=== PATIENT | male | born 1925 | race Caucasian/White ===

== ENCOUNTER 2016-09-06 20:47 | Inpatient (IN) | payer MEDICAID ==
[~2016-09-06] VITALS: Ht 162.6 cm; Wt 63.2 kg
[~2016-09-06 20:47] MED LIST: ADV25050 INH; ALBU8.5H3 INH; ALBU8.5H5 INH; CEPH-443 PO; DOCU-144 PO; FAMO-95 PO; IPRA12.93 INHALATION; LANT3I SC; METF500T PO; SIN25100 PO
[2016-09-06] MEDS ORDERED: AZITHROMYCIN 500MG/NS (PMX) 250 ML IV STA (21:42)
[2016-09-06] MEDS ORDERED: CEFTRIAXONE 1 GM/50 ML (PMX) 50 ML IVPB STA (21:42)
[2016-09-06] MEDS ORDERED: SODIUM CHLORIDE 0.9% 1L BAG IV* STA (21:42)
[2016-09-06] MEDS ORDERED: ACETAMINOPHEN 500 MG TAB PO STA (21:59)
[2016-09-06] MEDS ORDERED: ALBUTEROL 0.083% (NEB) 2.5 MG/3 ML AMP NEB STA (22:06)
[2016-09-06] MEDS ORDERED: DEXAMETHASONE 10 MG/ML 1 ML INJ IV STA (22:06)
[2016-09-06] MEDS ORDERED: IPRATROPIUM (NEB) 0.5 MG/2.5 ML AMP NEB STA (22:06)
[2016-09-06 22:26] LABS: ADD SCAN DIFF NO
[2016-09-06 22:28] LABS: HEMATOCRIT 36.4 % (42.0-52.0); HEMOGLOBIN 12.4 g/dl (14.0-18.0); MEAN CORPUSCULAR HEMOGLOBIN 30.5 pg (29.0-33.0); MEAN CORPUSCULAR HGB CONC 34.1 g/dl (32.0-37.0); MEAN CORPUSCULAR VOLUME 89.7 fl (82.0-101.0); MEAN PLATELET VOLUME 9.1 fl (7.4-10.4); PLATELET COUNT 155 10^3/UL (140-415); RED BLOOD COUNT 4.06 10^6/ul (4.70-6.10); RED CELL DISTRIBUTION WIDTH 13.2 % (11.5-14.5); WHITE BLOOD COUNT 6.4 10^3/ul (4.8-10.8)
--- NOTE | 2016-09-06 22:30 | RADRPT ---
PROCEDURE: XR Chest. CLINICAL INDICATION: Shortness of breath. Sepsis. TECHNIQUE: Single frontal view. COMPARISON: 08/13/2015. FINDINGS: There is bilateral apical scarring with right worse than left, unchanged. Atelectasis or pneumonia at the lung bases is also unchanged. The heart size is normal. There is calcification in the aorta consistent with atherosclerosis. There is no pleural effusion. There is no pneumothorax. IMPRESSION: 1. Bilateral upper lobe scarring with right worse than left, unchanged. 2. Bibasilar atelectasis, unchanged. 3. Atherosclerosis. RPTAT: QQ .Justino Correa MD, MD Date Time Electronically viewed and signed by .Justino Correa MD, on 09/06/2016 22:30 .R/
[2016-09-06 22:44] LABS: ALBUMIN 3.7 g/dl (3.3-4.9); CHLORIDE 97 mmol/L (97-110); INR 1.18; PROTIME 15.1 Sec (12.2-14.2); PT RATIO 1.2
[2016-09-06 22:45] LABS: PARTIAL THROMBOPLASTIN TIME 35.3 Sec (25.0-35.0); POTASSIUM 3.8 mmol/L (3.5-5.1); SODIUM 137 mmol/L (135-144)
[2016-09-06 22:47] LABS: ALBUMIN/GLOBULIN RATIO 0.88; ANION GAP 16 (8-16); BILIRUBIN,INDIRECT 0.3 mg/dl (0-1.1); BILIRUBIN,TOTAL 0.3 mg/dl (0.2-1.3); CARBON DIOXIDE 28 mmol/L (21-31); CREATININE 0.62 mg/dl (0.61-1.24); TOTAL PROTEIN 7.9 g/dl (6.1-8.1)
[2016-09-06 22:48] LABS: ALANINE AMINOTRANSFERASE 23 IU/L (13-69); ALKALINE PHOSPHATASE 81 IU/L (42-121); ASPARTATE AMINO TRANSFERASE 17 IU/L (15-46); BLOOD UREA NITROGEN 17 mg/dl (7-20); CALCIUM 9.2 mg/dl (8.4-10.2); GLUCOSE 170 mg/dl (70-220)
[2016-09-06 23:05] LABS: TROPONIN-I < 0.012 ng/ml (0.00-0.12)
[2016-09-06] MEDS ORDERED: ACETAMINOPHEN 325 MG TAB PO PRN (23:30)
[2016-09-06] MEDS ORDERED: ONDANSETRON 4 MG INJ IV PRN (23:30)
[2016-09-07] VITALS (13 sets, daily range): BP systolic 109–149; BP diastolic 56–72; PULSE 67–95; RESP 16–20; TEMP 98.9; Ht 162.6 cm; Wt 63.2 kg
[2016-09-07] MEDS ORDERED: SIN25100 PO (00:07)
[2016-09-07 00:40] LABS: EOSINOPHILS # 0.1 10^3/ul (0.0-0.5); MONOCYTE # 0.1 10^3/ul (0.3-0.9); NEUTROPHIL # 3.8 10^3/ul (1.6-7.5)
--- NOTE | 2016-09-07 02:51 | ERA ---
ER Documentation Chief Complaint Date/Time DATE: 09/07/16 TIME: 02:19 Chief Complaint fever/cough/congestion x 2 days HPI 89-year-old male with a history of chronic lung disease presenting from home with a cough for 4 days and associated fever 2 days. He has had associated dark yellow sputum. He denies any nausea, vomiting, diarrhea, chest pain, abdominal pain. He states that he does not use any medications for his chronic lung disease. ROS All systems reviewed and are negative except as per history of present illness. Medications Home Meds Active Scripts Metformin Hcl (Glucophage) 500 Mg Tab, 1000 MG PO BID WITH MEALS for 30 Days, TAB Prov:MARGAUXFELIX M. 05/03/15 Reported Medications Carbidopa-Levodopa* (Sinemet*) 25-100 Mg Tab, 2 TAB PO TID, TAB 09/07/16 Discontinued Reported Medications Carbidopa-Levodopa* (Sinemet*) 25-100 Mg Tab, 1.5 TAB PO TID, TAB 09/18/14 Docusate Sodium* (Colace*) 100 Mg Capsule, 100 MG PO BID, CAP 08/23/14 Discontinued Scripts Albuterol Sulfate* (Proair HFA*) 8.5 Gm Hfa.aer.ad, 2 PUFF INH Q4 for WHEEZING, #1 INHALER Prov:NAKIA NANCE MD 08/13/15 Salmeterol Xinaf/Fluticasone* (Advair*) 1 Inh Inha, 1 INH INH BID, #1 INHALER Prov:FELIX DAMICO. 05/03/15 Ipratropium [place]* (Atrovent HFA*) 12.9 Gm Aer.w.adap, 2 PUFF INHALATION Q4H for SHORTNESS OF BREATH, #1 INHALER Prov:FELIX DAMICO. 05/03/15 Insulin Glargine* (Lantus*) 100 Unit/Ml Soln, 16 UNIT SC DAILY for 30 Days Prov:FELIX DAMICO. 05/03/15 Famotidine* (Pepcid* AC) 20 Mg Tab, 20 MG PO BID for 30 Days, TAB Prov:MARGAUXTANIKALAMONTE Marc. 05/03/15 Albuterol Sulfate* (Albuterol Sulfate* HFA) 8.5 Gm Hfa.aer.ad, 1-2 PUFF INH Q4 Y for SHORTNESS OF BREATH, #1 EA Prov:FELIX DAMICO 05/03/15 Cephalexin* (Keflex*) 500 Mg Capsule, 500 MG PO TID for 7 Days, CAP Prov:NAKIA NANCE MD 08/13/15 Allergies Allergies: Coded Allergies: Cyanocobalamin (Verified Allergy, Unknown, 09/06/16) PMhx/Soc History of Surgery: Yes (tumor removal, cholecystectomy, ) Anesthesia Reaction: No Hx Neurological Disorder: Yes (parkinsons) Hx Respiratory Disorders: Yes (PNA, COPD, former smoker (quit 50 years ago)) Hx Cardiac Disorders: Yes (cardiac stent, CAD, ) Hx Psychiatric Problems: No Hx Miscellaneous Medical Probl: Yes Hx Alcohol Use: No Hx Substance Use: No Hx Tobacco Use: Yes (quit 50 years ago) Smoking Status: Former smoker FmHx Family History: No diabetes Physical Exam Vitals Vital Signs Date Time Temp Pulse Resp B/P Pulse Ox O2 Delivery O2 Flow Rate FiO2 09/06/16 23:12 100.0 106 26 107/54 97 Nasal Cannula 2.0 09/06/16 22:34 98 2.0 28 09/06/16 22:34 107 19 98 Nasal Cannula 2.0 28 09/06/16 21:49 Nasal Cannula 2 09/06/16 20:57 101.8 114 20 134/68 94 Physical Exam Const: Well-appearing, no distress, on oxygen Head: Atraumatic Eyes: Normal Conjunctiva ENT: Normal External Ears, Nose and Mouth. Neck: Full range of motion. No JVD ~ No meningismus. Resp: Diminished breath sounds bilaterally, worse on the right, with rhonchi on right lower posterior lung field. Expiratory wheezing present on right Cardio: Tachycardic with regular rhythm, no murmurs. 2+ distal pulses bilaterally. Abd: Soft, non tender, non distended. Normal bowel sounds Skin: No petechiae or rashes Back: No midline or flank tenderness Ext: No cyanosis, or edema. No calf tenderness Neur: Awake and alert Psych: Normal Mood and Affect Result Diagram: 09/06/16220709/06/162207 Results 24 hrs Laboratory Tests Test 09/06/16 22:08 White Blood Count 6.410^3/ul Red Blood Count 4.0610^6/ul Hemoglobin 12.4g/dl Hematocrit 36.4% Mean Corpuscular Volume 89.7fl Mean Corpuscular Hemoglobin 30.5pg Mean Corpuscular Hemoglobin Concent 34.1g/dl Red Cell Distribution Width 13.2% Platelet Count 86068^3/UL Mean Platelet Volume 9.1fl Neutrophils % 60.0% Band Neutrophils % 5.0% Lymphocytes % 32.0% Monocytes % 2.0% Eosinophils % 1.0% Neutrophils # 3.810^3/ul Lymphocytes # 2.010^3/ul Monocytes # 0.110^3/ul Eosinophils # 0.110^3/ul Differential Comment MANUAL DIFF Prothrombin Time 15.1Sec Prothrombin Time Ratio 1.2 INR International Normalized Ratio 1.18 Activated Partial Thromboplast Time 35.3Sec Sodium Level 137mmol/L Potassium Level 3.8mmol/L Chloride Level 97mmol/L Carbon Dioxide Level 28mmol/L Anion Gap 16 Blood Urea Nitrogen 17mg/dl Creatinine 0.62mg/dl Glucose Level 170mg/dl Lactic Acid Level 1.2mmol/L Calcium Level 9.2mg/dl Total Bilirubin 0.3mg/dl Direct Bilirubin 0.00mg/dl Indirect Bilirubin 0.3mg/dl Aspartate Amino Transf (AST/SGOT) 17IU/L Alanine Aminotransferase (ALT/SGPT) 23IU/L Alkaline Phosphatase 81IU/L Troponin I < 0.012ng/ml Total Protein 7.9g/dl Albumin 3.7g/dl Globulin 4.20g/dl Albumin/Globulin Ratio 0.88 Current Medications Medications (Trade) Dose Ordered Sig/Almaz Route PRN Reason Start Time Stop Time Status Last Admin Dose Admin Sodium Chloride 2040 ml 2,040 ml BOLUS OVER 2 HOURS STAT IV* 09/06/16 21:42 09/06/16 21:44 DC 09/06/16 22:05 Ceftriaxone Sodium 50 ml @ 100 mls/hr ONCE STAT IVPB 09/06/16 21:42 09/06/16 22:11 DC 09/06/16 22:04 Azithromycin (Zithromax 500mg/ NS (Pmx)) 250 ml @ 250 mls/hr ONCE STAT IV 09/06/16 21:42 09/06/16 22:41 DC 09/06/16 22:24 Acetaminophen (Tylenol Tab) 1,000 mg ONCE STAT PO 09/06/16 21:59 09/06/16 22:00 DC 09/06/16 22:03 Albuterol (Proventil 0.083% (Neb)) 5 mg ONCE STAT NEB 09/06/16 22:06 09/06/16 22:08 DC 09/06/16 22:32 Ipratropium [place] (Atrovent 0.02% (Neb)) 0.5 mg ONCE STAT NEB 09/06/16 22:06 09/06/16 22:08 DC 09/06/16 22:32 Dexamethasone (Decadron) 10 mg ONCE STAT IV 09/06/16 22:06 09/06/16 22:08 DC 09/06/16 22:13 Procedures/MDM EMERGENT LABS AND DIAGNOSTIC STUDIES: Lab Results above were reviewed and interpreted by me. CBC and CMP within normal limits Lactate within normal limits 12-lead EKG was interpreted by Ana Hector MD: Sinus tachycardia at 115 bpm with PACs Normal axis Normal intervals No acute ST or T wave changes suggestive of acute ischemia or STEMI. Radiology Results as interpreted by Radiology below were reviewed by Keri Hector MD: Chest x-ray: IMPRESSION: 1. Bilateral upper lobe scarring with right worse than left, unchanged. 2. Bibasilar atelectasis, unchanged. 3. Atherosclerosis. .Justino Correa MD, MD Date Time Electronically viewed and signed by .Justino Correa MD, on 09/06/2016 22:30 Initial Nursing notes reviewed. Previous Medical Records requested via the Electronic Health Record. EMERGENCY DEPARTMENT COURSE / MEDICAL DECISION MAKING: Symptoms are most consistent with COPD exacerbation likely viral vs bacterial. Considered URI, allergic reaction, ACS, PE, pericardial effusion, but less likely based on history and physical. Sepsis workup started. Broad-spectrum antibiotics given. Steroids given. Med nebs ordered. Patient's infectious symptoms have not stabilized and the patient is at risk of rapid decompensation. The patient will be admitted for careful hydration, antibiotic therapy, and infectious source control. Severe Sepsis Assessment: Infectious Source: Pneumonia Severe Sepsis Managment: Blood Cultures X 2 before broad spectrum antibiotics initiated within 3 hours of recognition. 30 ml/kg NS bolus Completed Initial Lactate: Normal Repeat Lactate 1.8 Critical Care: Time: 40 minutes Treatments/Evaluations: Emergent fluid management, while maintaining close respiratory support. Immediate broad spectrum antibiotic therapy. Simultaneous assessment for possible sources in order to direct therapy. Consideration for invasive and chemical support to prevent respiratory or cardiac collapse. Septic Shock Assessment (1 hour post 30 ml/kg fluid bolus): Hypotension (SBP < 90 or 40 mmHg drop, MAP < 65): No Lactic acid > 4.0 no Accepting Care Team: Current data and ongoing care discussed. Time: Time of admission Primary Provider: Claribel Consulting: none Outstanding Data: cultures Departure Diagnosis: Primary Impression: COPD exacerbation Additional Impression: Sepsis Qualified Code: A41.9 - Sepsis, due to unspecified organism Condition: Serious ALEJANDRO HECTOR MD September 07, 2016 02:40
[2016-09-07] MEDS ORDERED: ONDANSETRON 4 MG INJ IV PRN (05:00)
--- NOTE | 2016-09-07 06:16 | HP ---
DATE OF ADMISSION: 09/06/2016 TIME SEEN: 2300. CHIEF COMPLAINT: Cough and fever. HISTORY OF PRESENT ILLNESS: The patient is an 89-year-old male with a history of Parkinson's diseas e, diabetes, COPD, and CAD with stent, who was brought to the ER with the above stated chief complai nt. The patient is wheelchair-bound and has delayed response to questions. Main complaint however is a cough which has been removed at times productive of whitish to yellowish sputum. Also complain ed of a fever. Symptoms have been going on for 2 days. When the patient presented to the ER he was febrile with a temperature of 101.8 and tachycardia with a heart rate of 114. Laboratory values shows a normal WBC. Hemoglobin was 12.4. Otherwise, CBC a nd CMP are within normal limits. Lactic acid is within normal limits. Chest x-ray in the ER shows some bilateral upper lobe scarring with right worse than left, and bibas ilar atelectasis, unchanged compared to chest x-ray . REVIEW OF SYSTEMS: Negative except as mentioned in the HPI. PAST MEDICAL HISTORY: As per HPI. PAST SURGICAL HISTORY: Cholecystectomy. SOCIAL HISTORY: He is an ex-smoker. He quit 50 years ago. ALLERGIES: CYANOCOBALAMIN. HOME MEDICATIONS: Sinemet and Metformin. PHYSICAL EXAMINATION: VITAL SIGNS: Blood pressure 107/54, heart rate 106, respiratory rate 26, temperature 100, oxygen sa turation 97% on 2 liters. GENERAL: In no acute distress. Appeared slightly tired and sleepy. HEENT: No obvious head deformity. Pupils are reactive to light. CARDIOVASCULAR: Tachycardic, with a regular rhythm. LUNGS: Diminished breath sounds at the bases bilaterally, with wheezing. ABDOMEN: Soft, nondistended, positive bowel sounds, nontender. EXTREMITIES: No edema. LABORATORY: Pertinent positives as mentioned in the HPI. IMPRESSION: 1. Sepsis, secondary to URI or possibly from developing pneumonia. 2. History of Parkinson's disease. 3. History of type 2 diabetes. PLAN: He will be placed on oxygen. Will send blood culture, urinalysis reviewed and culture. Will provide pain medication as needed. The patient will have a physical therapy evaluation prior to discharge. Further workup and management per clinical course. Dictated By: TA VELA/JOSE RAFAEL Conf#: [id number] [facility]#: [id number]
[2016-09-07] MEDS ORDERED: LEVALBUTEROL (NEB) 0.63 MG/3 ML AMP HHN PRN (06:30)
[2016-09-07] MEDS: LEVOFLOXACIN 500MG/D5W (PMX) 100 ML IVPB SCH (06:30)
[2016-09-07] MEDS: SOD CHLORIDE 0.9% 1,000 ML IV SCH ×2 (06:30→18:12)
[2016-09-07] MEDS ORDERED: DEXTROSE 50% 50 ML SYRINGE IV PRN ×2 (06:45)
[2016-09-07] MEDS ORDERED: GLUCOSE GEL 15 GRAM TUBE BUCCAL PRN (06:45)
[2016-09-07] MEDS ORDERED: GLUCAGON 1 MG INJ IM PRN (06:45)
[2016-09-07] MEDS ORDERED: GLUCOSE GEL 15 GRAM TUBE PO PRN ×2 (06:45)
[2016-09-07] MEDS: INSULIN ASPART [NOVOLOG] 3 ML PEN SC SCH ×4 (08:21→21:00)
[2016-09-07] MEDS: INSULIN GLARGINE [LANtus] 3 ML PEN SC SCH (08:21)
[2016-09-07] MEDS: HEPARIN 5,000 UNIT/0.5 ML VIAL SC SCH ×2 (08:25→22:14)
[2016-09-07] MEDS: ACETAMINOPHEN 325 MG TAB PO PRN (08:58)
[2016-09-07] MEDS: IPRATROPIUM (NEB) 0.5 MG/2.5 ML AMP HHN SCH ×3 (09:07→20:44)
[2016-09-07] MEDS: LEVALBUTEROL (NEB) 0.63 MG/3 ML AMP HHN SCH ×3 (09:07→20:44)
[2016-09-07 16:08] LABS: ADD UMIC YES; URINE BILIRUBIN (Dip) NEGATIVE (NEGATIVE); URINE BLOOD (Dip) TRACE (NEGATIVE); URINE COLOR LT. YELLOW (YELLOW); URINE KETONES (Dip) NEGATIVE (NEGATIVE); URINE LEUKOCYTE ESTERASE (Dip) NEGATIVE (NEGATIVE); URINE NITRITE (Dip) NEGATIVE (NEGATIVE); URINE TOTAL PROTEIN (Dip) NEGATIVE (NEGATIVE); URINE UROBILINOGEN (Dip) 0.2 E.U./dL (0.1-1.0)
[2016-09-07 16:16] LABS: BACTERIA,URINE FEW; MUCUS,URINE FEW; SQUAMOUS EPITHELIAL CELL,UR MODERATE
[2016-09-08] VITALS (11 sets, daily range): BP systolic 126–164; BP diastolic 60–76; PULSE 69–80; RESP 15–71
[2016-09-08] MEDS: ACCU-CHEK XX SCH (02:00)
[2016-09-08] MEDS ORDERED: ACCU-CHEK XX SCH (02:00)
[2016-09-08] MEDS: LEVALBUTEROL (NEB) 0.63 MG/3 ML AMP HHN SCH ×4 (02:07→19:49)
[2016-09-08] MEDS: LEVOFLOXACIN 500MG/D5W (PMX) 100 ML IVPB SCH (03:03)
[2016-09-08] MEDS: SOD CHLORIDE 0.9% 1,000 ML IV SCH ×2 (07:44→23:32)
[2016-09-08] MEDS: INSULIN ASPART [NOVOLOG] 3 ML PEN SC SCH ×4 (08:00→21:00)
[2016-09-08] MEDS: INSULIN GLARGINE [LANtus] 3 ML PEN SC SCH (08:22)
[2016-09-08] MEDS: HEPARIN 5,000 UNIT/0.5 ML VIAL SC SCH ×2 (08:22→20:51)
--- NOTE | 2016-09-08 10:36 | PN ---
Date/Time of Note Date/Time of Note LATE ENTRY DATE: 09/08/16 Assessment/Plan VTE Prophylaxis VTE Prophylaxis Intervention: heparin Lines/Catheters IV [facility]ter [facility] (from [facility]): Peripheral IV Urinary Cath still in place: No Assessment/Plan Chief Complaint/Hosp Course Assessment and plan 1. Sepsis secondary to possible bronchitis versus developing pneumonia. Continue antibiotics. Continue bronchodilators. Titrate down O2 as tolerated. 2. History of Parkinson's disease. Continue antiparkinsonian medication 3. TYPE 2 diabetes. Continue insulin regimen. Will adjust as needed 4. Deconditioning. Physical therapy to follow. Disposition and plan: Follow-up chest radiograph. Continue antibiotics. Bronchodilators [id number]. Await for clinical improvement of respiratory status Problems: Subjective 24 Hr Interval Summary Free Text/Dictation Still reports having some cough and some shortness of breath Exam/Review of Systems Vital Signs Vitals Vital Signs Date Time Temp Pulse Resp B/P Pulse Ox O2 Delivery O2 Flow Rate FiO2 09/08/16 08:28 69 09/08/16 08:19 97.6 22 146/65 97 09/08/16 08:08 2.0 09/08/16 08:08 Nasal Cannula 09/06/16 22:34 28 Intake and Output 09/07/16 09/07/16 09/08/16 15:00 23:00 07:00 Intake Total 100 ml 1330 ml Output Total 200 ml Balance 100 ml 1130 ml Exam Constitutional: alert Psych: nl mood/affect Head: normocephalic Neck: No jvd Respiratory: diminished breath sounds, wheezing Gastrointestinal: non-tender, soft Musculoskeletal: swelling (Some noted in bilateral knees. Patient with history of osteoarthritis) Extremities: No edema Neurological: nl mental status, nl speech Results Result Diagram: 09/06/16220709/06/162207 Results 24 hrs Laboratory Tests Test 09/07/16 12:01 09/07/16 15:00 09/07/16 17:28 09/07/16 22:16 Bedside Glucose 225 H 228 H 175 Urine Color LT. YELLOW Urine Clarity SLIGHTLY CLOUDY Urine pH 6.0 Urine Specific [place] 1.010 Urine Ketones NEGATIVE Urine Nitrite NEGATIVE Urine Bilirubin NEGATIVE Urine Urobilinogen 0.2 E.U./dL Urine Leukocyte Esterase NEGATIVE Urine Microscopic RBC 2-5 Urine Microscopic WBC 0-2 Urine Squamous Epithelial Cells MODERATE Urine Bacteria FEW Urine Mucus FEW Urine Hemoglobin TRACE Urine Glucose 0.25% H Urine Total Protein NEGATIVE Test 09/08/16 03:01 09/08/16 07:56 Bedside Glucose 158 135 Medications Medications Current Medications Levofloxacin/ Dextrose (Levaquin 500mg/ D5W 100 ml (Pmx)) 100 ml @ 100 mls/hr Q24H IVPB Last administered on 09/08/16 03:03; Admin Dose 100 MLS/HR; Start at 04:00 Acetaminophen (Tylenol Tab) 650 mg Q6H PRN PO PAIN AND OR ELEVATED TEMP Last administered on 09/07/16 08:58; Admin Dose 650 MG; Start 09/07/16 at 04:00 Ondansetron HCl (Zofran Inj) 4 mg Q6H PRN IV NAUSEA AND/OR VOMITING; Start 03/16 at 05:00 Heparin Sodium (Porcine) 5000 unit 5,000 unit BID SC Last administered on 08:22; Admin Dose 5,000 UNIT; Start 09/07/16 at 09:00 Sodium Chloride (NS) 1,000 ml @ 75 mls/hr [id number] IV Last administered on 09/08 07:44; Admin Dose 75 MLS/HR; Start 09/07/16 at 05:00 Insulin Glargine (Lantus) 10 unit DAILY@08 SC Last administered on 09/08/16 08 :22; Admin Dose 10 UNIT; Start 09/07/16 at 08:00 Diagnostic Test (Pha) (Accu-Chek) 1 ea 02 XX Last administered on 09/08/16 02: 00; Admin Dose 1 EA; Start 09/08/16 at 02:00 Miscellaneous Information 1 ea NOTE XX ; Start 09/07/16 at 06:45 Glucose (Glutose) 15 gm Q15M PRN PO DECREASED GLUCOSE; Start 09/07/16 at 06:45 Glucose (Glutose) 22.5 gm Q15M PRN PO DECREASED GLUCOSE; Start 09/07/16 at 06: 45 Dextrose (D50w Syringe) 25 ml Q15M PRN IV DECREASED GLUCOSE; Start 09/07/16 at 06:45 Dextrose (D50w Syringe) 50 ml Q15M PRN IV DECREASED GLUCOSE; Start 09/07/16 at 06:45 Glucagon (Glucagen) 1 mg Q15M PRN IM DECREASED GLUCOSE; Start 09/07/16 at 06:45 Glucose (Glutose) 15 gm Q15M PRN BUCCAL DECREASED GLUCOSE; Start 09/07/16 at 06 :45 ASHLEY FONG September 08, 2016 10:36
--- NOTE | 2016-09-08 10:43 | PN ---
Date/Time of Note Date/Time of Note DATE: 09/08/16 TIME: 10:36 Assessment/Plan VTE Prophylaxis VTE Prophylaxis Intervention: heparin Lines/Catheters IV [facility] Peripheral IV Urinary Cath still in place: No Assessment/Plan Chief Complaint/Hosp Course Assessment and plan 1. Sepsis secondary to possible bronchitis versus developing pneumonia. Continue antibiotics. Continue bronchodilators. Titrate down O2 as tolerated. f/u cxr pending 2. History of Parkinson's disease. Continue antiparkinsonian medication 3. TYPE 2 diabetes. Continue insulin regimen. Will adjust as needed 4. Deconditioning. cont PT Disposition and plan: CXR pending. cont abx. cont PT. titrate down o2 as tolerated. check cbc/bmp Discussed plan of care with Dr. Palencia Problems: Subjective 24 Hr Interval Summary Free Text/Dictation Reports better breathing. less cough Exam/Review of Systems Vital Signs Vitals Vital Signs Date Time Temp Pulse Resp B/P Pulse Ox O2 Delivery O2 Flow Rate FiO2 09/08/16 08:28 69 09/08/16 08:19 97.6 22 146/65 97 09/08/16 08:08 2.0 09/08/16 08:08 Nasal Cannula 09/06/16 22:34 28 Intake and Output 09/07/16 09/07/16 09/08/16 15:00 23:00 07:00 Intake Total 100 ml 1330 ml Output Total 200 ml Balance 100 ml 1130 ml Exam Constitutional: alert, oriented Head: normocephalic Neck: No jvd Respiratory: congested cough, normal air movement, wheezing (less) Gastrointestinal: non-tender, soft Extremities: normal pulses Neurological: nl mental status, nl speech Results Result Diagram: 09/06/16220709/06/162207 Results 24 hrs Laboratory Tests Test 09/07/16 12:01 09/07/16 15:00 09/07/16 17:28 09/07/16 22:16 Bedside Glucose 225 H 228 H 175 Urine Color LT. YELLOW Urine Clarity SLIGHTLY CLOUDY Urine pH 6.0 Urine Specific [place] 1.010 Urine Ketones NEGATIVE Urine Nitrite NEGATIVE Urine Bilirubin NEGATIVE Urine Urobilinogen 0.2 E.U./dL Urine Leukocyte Esterase NEGATIVE Urine Microscopic RBC 2-5 Urine Microscopic WBC 0-2 Urine Squamous Epithelial Cells MODERATE Urine Bacteria FEW Urine Mucus FEW Urine Hemoglobin TRACE Urine Glucose 0.25% H Urine Total Protein NEGATIVE Test 09/08/16 03:01 09/08/16 07:56 Bedside Glucose 158 135 Medications Medications Current Medications Levofloxacin/ Dextrose (Levaquin 500mg/ D5W 100 ml (Pmx)) 100 ml @ 100 mls/hr Q24H IVPB Last administered on 09/08/16 03:03; Admin Dose 100 MLS/HR; Start at 04:00 Acetaminophen (Tylenol Tab) 650 mg Q6H PRN PO PAIN AND OR ELEVATED TEMP Last administered on 09/07/16 08:58; Admin Dose 650 MG; Start 09/07/16 at 04:00 Ondansetron HCl (Zofran Inj) 4 mg Q6H PRN IV NAUSEA AND/OR VOMITING; Start 03/16 at 05:00 Heparin Sodium (Porcine) 5000 unit 5,000 unit BID SC Last administered on 08:22; Admin Dose 5,000 UNIT; Start 09/07/16 at 09:00 Sodium Chloride (NS) 1,000 ml @ 75 mls/hr [id number] IV Last administered on 09/08 07:44; Admin Dose 75 MLS/HR; Start 09/07/16 at 05:00 Insulin Glargine (Lantus) 10 unit DAILY@08 SC Last administered on 09/08/16 08 :22; Admin Dose 10 UNIT; Start 09/07/16 at 08:00 Diagnostic Test (Pha) (Accu-Chek) 1 ea 02 XX Last administered on 09/08/16 02: 00; Admin Dose 1 EA; Start 09/08/16 at 02:00 Miscellaneous Information 1 ea NOTE XX ; Start 09/07/16 at 06:45 Glucose (Glutose) 15 gm Q15M PRN PO DECREASED GLUCOSE; Start 09/07/16 at 06:45 Glucose (Glutose) 22.5 gm Q15M PRN PO DECREASED GLUCOSE; Start 09/07/16 at 06: 45 Dextrose (D50w Syringe) 25 ml Q15M PRN IV DECREASED GLUCOSE; Start 09/07/16 at 06:45 Dextrose (D50w Syringe) 50 ml Q15M PRN IV DECREASED GLUCOSE; Start 09/07/16 at 06:45 Glucagon (Glucagen) 1 mg Q15M PRN IM DECREASED GLUCOSE; Start 09/07/16 at 06:45 Glucose (Glutose) 15 gm Q15M PRN BUCCAL DECREASED GLUCOSE; Start 09/07/16 at 06 :45 ASHLEY FONG September 08, 2016 10:43
[2016-09-08 11:17] LABS: ADD SCAN DIFF NO
[2016-09-08 11:26] LABS: BASOPHILS % 0.2 % (0.0-2.0); EOSINOPHILS % 0.5 % (0.0-7.0); HEMATOCRIT 31.9 % (42.0-52.0); HEMOGLOBIN 10.5 g/dl (14.0-18.0); LYMPHOCYTES % 16.5 % (15.0-51.0); MEAN CORPUSCULAR HEMOGLOBIN 29.8 pg (29.0-33.0); MEAN CORPUSCULAR HGB CONC 32.9 g/dl (32.0-37.0); MEAN CORPUSCULAR VOLUME 90.6 fl (82.0-101.0); MEAN PLATELET VOLUME 9.5 fl (7.4-10.4); MONOCYTE # 0.5 10^3/ul (0.3-0.9); MONOCYTES % 7.7 % (0.0-11.0); NEUTROPHIL # 4.4 10^3/ul (1.6-7.5); NEUTROPHILS % 74.8 % (39.0-77.0); PLATELET COUNT 172 10^3/UL (140-415); RED BLOOD COUNT 3.52 10^6/ul (4.70-6.10); RED CELL DISTRIBUTION WIDTH 13.4 % (11.5-14.5); WHITE BLOOD COUNT 5.9 10^3/ul (4.8-10.8)
[2016-09-08 11:44] LABS: POTASSIUM 3.4 mmol/L (3.5-5.1)
[2016-09-08 11:47] LABS: CALCIUM 8.7 mg/dl (8.4-10.2); CREATININE 0.62 mg/dl (0.61-1.24)
[2016-09-08] MEDS: CARBIDOPA/LEVODOPA (25/100) TAB PO SCH ×2 (12:39→20:41)
--- NOTE | 2016-09-08 12:48 | RADRPT ---
PROCEDURE: XR Chest. CLINICAL INDICATION: Pneumonia. TECHNIQUE: Single frontal view of the chest was obtained. COMPARISON: Chest x-ray 08/13/2015. 10:18 p.m. FINDINGS: The soft tissues are normal. Monitoring electrodes repair across the chest. Degenerative osteophyt es are noted in the thoracic spine. There is narrowing of the subacromial joint spaces bilaterally. There are degenerative changes of the glenohumeral joints. The heart is dextro rotated with volum e loss noted in the right lung shifting the cardiomediastinal silhouette to the right. The cardiome diastinal silhouette and hilar structures are otherwise normal. The pulmonary vasculature is normal. There are vascular calcifications in the aortic arch. There is right apical pleural scarring. The re is cystic and interstitial changes in the right lung predominating in the right upper lobe. The left costophrenic angle is clear. The right costophrenic angle is slightly obscured. There are area s of parenchymal and pleural scarring in the left upper lobe and upper left pleural space. No signi ficant change is noted compared to the prior study. IMPRESSION: 1. Stable chest x-ray showing no change as compared to 08/13/2015. 2. Extensive pleural and parenchymal scarring in the right lung may be the result of a prior inflam matory process such as TB. Additional the less extensive areas of pleural and parenchymal scarring are noted in the left upper lobe. 3. 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 4. 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 RPTAT:AAJJ Physician Ruel Date Time Electronically viewed and signed by Physician Ruel on 09/08/2016 12:48 RADHA/
[2016-09-09] VITALS (11 sets, daily range): BP systolic 127–151; BP diastolic 60–79; PULSE 69–84; RESP 18–20
[2016-09-09] MEDS: ACETAMINOPHEN 325 MG TAB PO PRN (00:45)
[2016-09-09] MEDS: ACCU-CHEK XX SCH (01:39)
[2016-09-09] MEDS: LEVALBUTEROL (NEB) 0.63 MG/3 ML AMP HHN SCH ×4 (01:47→19:50)
[2016-09-09] MEDS: LEVOFLOXACIN 500MG/D5W (PMX) 100 ML IVPB SCH (05:00)
[2016-09-09 08:04] LABS: ADD SCAN DIFF NO
[2016-09-09 08:11] LABS: BASOPHILS % 0.3 % (0.0-2.0); EOSINOPHILS # 0.2 10^3/ul (0.0-0.5); EOSINOPHILS % 3.6 % (0.0-7.0); HEMATOCRIT 33.5 % (42.0-52.0); HEMOGLOBIN 11.4 g/dl (14.0-18.0); LYMPHOCYTES # 1.6 10^3/ul (0.8-2.9); LYMPHOCYTES % 23.3 % (15.0-51.0); MEAN CORPUSCULAR HEMOGLOBIN 30.6 pg (29.0-33.0); MEAN CORPUSCULAR VOLUME 90.1 fl (82.0-101.0); MEAN PLATELET VOLUME 9.2 fl (7.4-10.4); MONOCYTE # 0.6 10^3/ul (0.3-0.9); MONOCYTES % 8.7 % (0.0-11.0); NEUTROPHIL # 4.2 10^3/ul (1.6-7.5); NEUTROPHILS % 63.6 % (39.0-77.0); PLATELET COUNT 187 10^3/UL (140-415); RED BLOOD COUNT 3.72 10^6/ul (4.70-6.10); RED CELL DISTRIBUTION WIDTH 13.5 % (11.5-14.5); WHITE BLOOD COUNT 6.6 10^3/ul (4.8-10.8)
[2016-09-09 08:36] LABS: CREATININE 0.54 mg/dl (0.61-1.24); POTASSIUM 3.9 mmol/L (3.5-5.1)
[2016-09-09] MEDS: INSULIN ASPART [NOVOLOG] 3 ML PEN SC SCH ×4 (09:00→20:36)
[2016-09-09] MEDS: CARBIDOPA/LEVODOPA (25/100) TAB PO SCH ×3 (10:25→21:42)
[2016-09-09] MEDS: INSULIN GLARGINE [LANtus] 3 ML PEN SC SCH (10:27)
[2016-09-09] MEDS: HEPARIN 5,000 UNIT/0.5 ML VIAL SC SCH ×2 (10:28→20:37)
[2016-09-09] MEDS: SOD CHLORIDE 0.9% 1,000 ML IV SCH (10:35)
--- NOTE | 2016-09-09 10:35 | PN ---
Date/Time of Note Date/Time of Note DATE: 09/09/16 TIME: 10:31 Assessment/Plan VTE Prophylaxis VTE Prophylaxis Intervention: SCD's Lines/Catheters IV [facility]ter Type (from [facility]): Peripheral IV Urinary Cath still in place: No Assessment/Plan Chief Complaint/Hosp Course Assessment and plan 1. Sepsis secondary to possible bronchitis versus developing pneumonia. Continue antibiotics. Continue bronchodilators. Titrate down O2 as tolerated. slowly improving 2. History of Parkinson's disease. Continue antiparkinsonian medication 3. TYPE 2 diabetes. Continue insulin regimen. Will adjust as needed 4. Deconditioning. cont PT Disposition and plan: cont abx. cont to titrate down o2 as tolerated. await clinical improvement of respiratory status Discussed plan of care with Dr. Palencia Problems: Subjective 24 Hr Interval Summary Free Text/Dictation Still with some shortness of breath and cough. Reports better breathing. Exam/Review of Systems Vital Signs Vitals Vital Signs Date Time Temp Pulse Resp B/P Pulse Ox O2 Delivery O2 Flow Rate FiO2 09/09/16 08:24 72 20 98 2.0 09/09/16 08:20 97.7 129/62 09/09/16 01:48 Nasal Cannula 09/06/16 22:34 28 Intake and Output 09/08/16 09/08/16 09/09/16 15:00 23:00 07:00 Intake Total 1400 ml Output Total 800 ml Balance 600 ml Exam Constitutional: alert, oriented Head: normocephalic Respiratory: congested cough, diminished breath sounds Cardiovascular: other (regular rate ) Gastrointestinal: non-tender, soft Musculoskeletal: other (noted with contractures BUE ) Results Result Diagram: 09/09/1672909/09/1630 Results 24 hrs Laboratory Tests Test 09/08/16 12:18 09/08/16 17:31 09/08/16 18:01 09/08/16 20:49 Bedside Glucose 134 182 121 177 Test 09/09/16 01:00 09/09/16 07:10 09/09/16 07:30 Bedside Glucose 116 107 White Blood Count 6.6 Red Blood Count 3.72 L Hemoglobin 11.4 L Hematocrit 33.5 L Mean Corpuscular Volume 90.1 Mean Corpuscular Hemoglobin 30.6 Mean Corpuscular Hemoglobin Concent 34.0 Red Cell Distribution Width 13.5 Platelet Count 187 Mean Platelet Volume 9.2 Neutrophils % 63.6 Lymphocytes % 23.3 Monocytes % 8.7 Eosinophils % 3.6 Basophils % 0.3 Nucleated Red Blood Cells % 0.0 Neutrophils # 4.2 Lymphocytes # 1.6 Monocytes # 0.6 Eosinophils # 0.2 Basophils # 0.0 Nucleated Red Blood Cells # 0.0 Sodium Level 139 Potassium Level 3.9 Chloride Level 107 Carbon Dioxide Level 27 Anion Gap 9 # Blood Urea Nitrogen 14 Creatinine 0.54 L Glucose Level 117 # Calcium Level 9.0 Medications Medications Current Medications Levofloxacin/ Dextrose (Levaquin 500mg/ D5W 100 ml (Pmx)) 100 ml @ 100 mls/hr Q24H IVPB Last administered on 09/09/16 05:00; Admin Dose 100 MLS/HR; Start at 04:00 Acetaminophen (Tylenol Tab) 650 mg Q6H PRN PO PAIN AND OR ELEVATED TEMP Last administered on 09/09/16 00:45; Admin Dose 650 MG; Start 09/07/16 at 04:00 Ondansetron HCl (Zofran Inj) 4 mg Q6H PRN IV NAUSEA AND/OR VOMITING; Start 03/16 at 05:00 Heparin Sodium (Porcine) 5000 unit 5,000 unit BID SC Last administered on 20:51; Admin Dose 5,000 UNIT; Start 09/07/16 at 09:00 Sodium Chloride (NS) 1,000 ml @ 75 mls/hr [id number] IV Last administered on 09/08 23:32; Admin Dose 75 MLS/HR; Start 09/07/16 at 05:00 Insulin Glargine (Lantus) 10 unit DAILY@08 SC Last administered on 09/08/16 08 :22; Admin Dose 10 UNIT; Start 09/07/16 at 08:00 Diagnostic Test (Pha) (Accu-Chek) 1 ea 02 XX Last administered on 09/09/16 01: 39; Admin Dose 1 EA; Start 09/08/16 at 02:00 Miscellaneous Information 1 ea NOTE XX ; Start 09/07/16 at 06:45 Glucose (Glutose) 15 gm Q15M PRN PO DECREASED GLUCOSE; Start 09/07/16 at 06:45 Glucose (Glutose) 22.5 gm Q15M PRN PO DECREASED GLUCOSE; Start 09/07/16 at 06: 45 Dextrose (D50w Syringe) 25 ml Q15M PRN IV DECREASED GLUCOSE; Start 09/07/16 at 06:45 Dextrose (D50w Syringe) 50 ml Q15M PRN IV DECREASED GLUCOSE; Start 09/07/16 at 06:45 Glucagon (Glucagen) 1 mg Q15M PRN IM DECREASED GLUCOSE; Start 09/07/16 at 06:45 Glucose (Glutose) 15 gm Q15M PRN BUCCAL DECREASED GLUCOSE; Start 09/07/16 at 06 :45 Carbidopa/Levodopa (Sinemet (25/ 100)) 2 tab TID PO Last administered on t 20:41; Admin Dose 2 TAB; Start 09/08/16 at 13:00 ASHLEY FONG September 09, 2016 10:35
[2016-09-10] VITALS (11 sets, daily range): BP systolic 111–161; BP diastolic 57–83; PULSE 64–80; RESP 17–20
[2016-09-10] MEDS: SOD CHLORIDE 0.9% 1,000 ML IV SCH ×2 (00:52→13:12)
[2016-09-10] MEDS: LEVALBUTEROL (NEB) 0.63 MG/3 ML AMP HHN SCH ×4 (01:20→18:58)
[2016-09-10] MEDS: LEVOFLOXACIN 500MG/D5W (PMX) 100 ML IVPB SCH (03:11)
[2016-09-10] MEDS: ACCU-CHEK XX SCH (03:12)
[2016-09-10 07:28] LABS: ADD SCAN DIFF NO
[2016-09-10 07:41] LABS: BASOPHILS % 0.3 % (0.0-2.0); EOSINOPHILS # 0.3 10^3/ul (0.0-0.5); EOSINOPHILS % 4.6 % (0.0-7.0); HEMATOCRIT 33.8 % (42.0-52.0); HEMOGLOBIN 11.2 g/dl (14.0-18.0); LYMPHOCYTES # 1.2 10^3/ul (0.8-2.9); MEAN CORPUSCULAR HEMOGLOBIN 29.7 pg (29.0-33.0); MEAN CORPUSCULAR HGB CONC 33.1 g/dl (32.0-37.0); MEAN CORPUSCULAR VOLUME 89.7 fl (82.0-101.0); MEAN PLATELET VOLUME 9.1 fl (7.4-10.4); MONOCYTE # 0.6 10^3/ul (0.3-0.9); MONOCYTES % 9.8 % (0.0-11.0); NEUTROPHIL # 3.7 10^3/ul (1.6-7.5); NEUTROPHILS % 64.3 % (39.0-77.0); PLATELET COUNT 181 10^3/UL (140-415); RED BLOOD COUNT 3.77 10^6/ul (4.70-6.10); RED CELL DISTRIBUTION WIDTH 13.4 % (11.5-14.5); WHITE BLOOD COUNT 5.8 10^3/ul (4.8-10.8)
[2016-09-10 07:58] LABS: CALCIUM 8.8 mg/dl (8.4-10.2); CREATININE 0.57 mg/dl (0.61-1.24)
[2016-09-10] MEDS: INSULIN ASPART [NOVOLOG] 3 ML PEN SC SCH ×4 (08:00→20:25)
[2016-09-10] MEDS: CARBIDOPA/LEVODOPA (25/100) TAB PO SCH ×3 (09:23→20:26)
[2016-09-10] MEDS: INSULIN GLARGINE [LANtus] 3 ML PEN SC SCH (09:25)
[2016-09-10] MEDS: HEPARIN 5,000 UNIT/0.5 ML VIAL SC SCH ×2 (09:25→20:26)
--- NOTE | 2016-09-10 13:15 | PN ---
Date/Time of Note Date/Time of Note DATE: 09/10/16 TIME: 13:13 Assessment/Plan VTE Prophylaxis VTE Prophylaxis Intervention: heparin Lines/Catheters IV [facility] ([facility] Peripheral IV Urinary Cath still in place: No Assessment/Plan Chief Complaint/Hosp Course Assessment and plan 1. Sepsis secondary to possible bronchitis versus developing pneumonia. Continue antibiotics. Continue bronchodilators. Titrate down O2 as tolerated. slowly improving . cont regimen 2. History of Parkinson's disease. Continue antiparkinsonian medication 3. TYPE 2 diabetes. Continue insulin regimen. Will adjust as needed 4. Deconditioning. cont PT Disposition and plan: cont abx. cont to titrate down o2 as tolerated. plan for home with home health once resp status improved. cont abx and breathing tx Discussed plan of care with Dr. Palencia Problems: Subjective 24 Hr Interval Summary Free Text/Dictation still reports some difficulty with breathing, but little better today Exam/Review of Systems Vital Signs Vitals Vital Signs Date Time Temp Pulse Resp B/P Pulse Ox O2 Delivery O2 Flow Rate FiO2 09/10/16 12:18 74 09/10/16 12:18 98.8 18 111/57 97 09/10/16 08:10 2.0 09/10/16 08:10 Nasal Cannula 09/06/16 22:34 28 Intake and Output 09/09/16 09/09/16 09/10/16 15:00 23:00 07:00 Intake Total 1225 ml 120 ml Output Total 500 ml 550 ml Balance 725 ml -430 ml Exam Constitutional: alert, oriented Psych: nl mood/affect Respiratory: diminished breath sounds Cardiovascular: regular rate and rhythm Gastrointestinal: non-tender, soft Musculoskeletal: other (contractures BUE ) Neurological: nl mental status Results Result Diagram: 09/10/16 0646 09/10/16 0646 Results 24 hrs Laboratory Tests Test 09/09/16 17:19 09/09/16 20:31 09/10/16 03:12 09/10/16 06:46 Bedside Glucose 135 187 143 White Blood Count 5.8 Red Blood Count 3.77 L Hemoglobin 11.2 L Hematocrit 33.8 L Mean Corpuscular Volume 89.7 Mean Corpuscular Hemoglobin 29.7 Mean Corpuscular Hemoglobin Concent 33.1 Red Cell Distribution Width 13.4 Platelet Count 181 Mean Platelet Volume 9.1 Neutrophils % 64.3 Lymphocytes % 20.0 Monocytes % 9.8 Eosinophils % 4.6 Basophils % 0.3 Nucleated Red Blood Cells % 0.0 Neutrophils # 3.7 Lymphocytes # 1.2 Monocytes # 0.6 Eosinophils # 0.3 Basophils # 0.0 Nucleated Red Blood Cells # 0.0 Sodium Level 136 Potassium Level 4.0 Chloride Level 104 Carbon Dioxide Level 27 Anion Gap 9 Blood Urea Nitrogen 13 Creatinine 0.57 L Glucose Level 128 Calcium Level 8.8 Test 09/10/16 07:53 Bedside Glucose 114 Medications Medications Current Medications Levofloxacin/ Dextrose (Levaquin 500mg/ D5W 100 ml (Pmx)) 100 ml @ 100 mls/hr Q24H IVPB Last administered on 09/10/16 03:11; Admin Dose 100 MLS/HR; Start at 04:00 Acetaminophen (Tylenol Tab) 650 mg Q6H PRN PO PAIN AND OR ELEVATED TEMP Last administered on 09/09/16 00:45; Admin Dose 650 MG; Start 09/07/16 at 04:00 Ondansetron HCl (Zofran Inj) 4 mg Q6H PRN IV NAUSEA AND/OR VOMITING; Start 03/16 at 05:00 Heparin Sodium (Porcine) 5000 unit 5,000 unit BID SC Last administered on 09:25; Admin Dose 5,000 UNIT; Start 09/07/16 at 09:00 Sodium Chloride (NS) 1,000 ml @ 75 mls/hr [id number] IV Last administered on 09/10 00:52; Admin Dose 75 MLS/HR; Start 09/07/16 at 05:00 Insulin Glargine (Lantus) 10 unit DAILY@08 SC Last administered on 09/10/16 09 :25; Admin Dose 10 UNIT; Start 09/07/16 at 08:00 Diagnostic Test (Pha) (Accu-Chek) 1 ea 02 XX Last administered on 09/10/16 03: 12; Admin Dose 1 EA; Start 09/08/16 at 02:00 Miscellaneous Information 1 ea NOTE XX ; Start 09/07/16 at 06:45 Glucose (Glutose) 15 gm Q15M PRN PO DECREASED GLUCOSE; Start 09/07/16 at 06:45 Glucose (Glutose) 22.5 gm Q15M PRN PO DECREASED GLUCOSE; Start 09/07/16 at 06: 45 Dextrose (D50w Syringe) 25 ml Q15M PRN IV DECREASED GLUCOSE; Start 09/07/16 at 06:45 Dextrose (D50w Syringe) 50 ml Q15M PRN IV DECREASED GLUCOSE; Start 09/07/16 at 06:45 Glucagon (Glucagen) 1 mg Q15M PRN IM DECREASED GLUCOSE; Start 09/07/16 at 06:45 Glucose (Glutose) 15 gm Q15M PRN BUCCAL DECREASED GLUCOSE; Start 09/07/16 at 06 :45 Carbidopa/Levodopa (Sinemet (25/ 100)) 2 tab TID PO Last administered on 09:23; Admin Dose 2 TAB; Start 09/08/16 at 13:00 ASHLEY FONG September 10, 2016 13:15
[2016-09-11] VITALS (13 sets, daily range): BP systolic 132–156; BP diastolic 63–81; PULSE 66–81; RESP 18–21
[2016-09-11] MEDS: LEVALBUTEROL (NEB) 0.63 MG/3 ML AMP HHN SCH ×4 (01:31→19:49)
[2016-09-11] MEDS: ACCU-CHEK XX SCH (02:50)
[2016-09-11] MEDS: SOD CHLORIDE 0.9% 1,000 ML IV SCH ×3 (03:44→18:31)
[2016-09-11] MEDS: LEVOFLOXACIN 500MG/D5W (PMX) 100 ML IVPB SCH (03:44)
[2016-09-11 06:42] LABS: ADD SCAN DIFF NO
[2016-09-11 06:45] LABS: BASOPHILS % 0.4 % (0.0-2.0); EOSINOPHILS # 0.3 10^3/ul (0.0-0.5); EOSINOPHILS % 5.2 % (0.0-7.0); HEMATOCRIT 33.2 % (42.0-52.0); HEMOGLOBIN 11.1 g/dl (14.0-18.0); LYMPHOCYTES # 1.2 10^3/ul (0.8-2.9); LYMPHOCYTES % 22.2 % (15.0-51.0); MEAN CORPUSCULAR HEMOGLOBIN 30.2 pg (29.0-33.0); MEAN CORPUSCULAR HGB CONC 33.4 g/dl (32.0-37.0); MEAN CORPUSCULAR VOLUME 90.2 fl (82.0-101.0); MEAN PLATELET VOLUME 8.8 fl (7.4-10.4); MONOCYTE # 0.5 10^3/ul (0.3-0.9); MONOCYTES % 8.7 % (0.0-11.0); NEUTROPHIL # 3.4 10^3/ul (1.6-7.5); NEUTROPHILS % 61.7 % (39.0-77.0); PLATELET COUNT 176 10^3/UL (140-415); RED BLOOD COUNT 3.68 10^6/ul (4.70-6.10); RED CELL DISTRIBUTION WIDTH 13.3 % (11.5-14.5); WHITE BLOOD COUNT 5.5 10^3/ul (4.8-10.8)
[2016-09-11 07:00] LABS: POTASSIUM 3.5 mmol/L (3.5-5.1)
[2016-09-11 07:02] LABS: CREATININE 0.62 mg/dl (0.61-1.24)
[2016-09-11 07:03] LABS: CALCIUM 8.6 mg/dl (8.4-10.2)
[2016-09-11] MEDS: INSULIN ASPART [NOVOLOG] 3 ML PEN SC SCH ×4 (08:00→20:46)
[2016-09-11] MEDS: CARBIDOPA/LEVODOPA (25/100) TAB PO SCH ×3 (08:12→20:46)
[2016-09-11] MEDS: INSULIN GLARGINE [LANtus] 3 ML PEN SC SCH (08:22)
[2016-09-11] MEDS: HEPARIN 5,000 UNIT/0.5 ML VIAL SC SCH ×2 (08:43→20:55)
[2016-09-11] MEDS: BISACODYL (EC) 5 MG TAB PO PRN (17:18)
--- NOTE | 2016-09-11 17:29 | PN ---
DATE: 09/11/2016 TIME OF EVALUATION: 1630 SUBJECTIVE: Complains of constipation. OBJECTIVE DATA: VITAL SIGNS: Temperature 98.5, pulse is 79, respiratory rate 18, blood pressure 136/63, oxygen saturation 98% on low flow O2. GENERAL: This is a frail-looking male lying in bed in mild respiratory distress. HEENT: Head normocephalic and atraumatic. Eyes: Anicteric sclerae. Conjunctivae clear. ENT: Nasal septum is midline. Oral mucosa is dry. NECK: Supple. No JVD noticed. RESPIRATORY: Bilaterally diminished breath sounds. Fine rales heard especially on the right side. Use of accessory muscles of respiration. CARDIAC: Regular rate and rhythm. S1 and S2 heard. Grade II/ systolic ejection murmur. ABDOMEN: Soft, nontender and nondistended. Bowel sounds positive in all 4 quadrants. GENITOURINARY: Deferred. EXTREMITIES: No cyanosis, no clubbing. Peripheral pulses are palpable. NEUROLOGIC: The patient has underlying Parkinsonian tremors of bilateral upper extremities. Muscle wasting of all 4 extremities. The patient is awake and alert and oriented to self and place. LABORATORY AND DIAGNOSTIC DATA: WBC 5.5, hemoglobin 11.1, hematocrit 33.2, platelet count 176, sodium 130, potassium 3.5, chloride 100, carbon dioxide 27, anion gap 13, BUN 12, creatinine 0.62, glucose 120, calcium 8.6. ASSESSMENT AND PLAN: 1. Chronic obstructive pulmonary disease exacerbation. Continue inhaled bronchodilators. We will start the patient on tapering dose of steroids. 2. Sepsis with underlying aspiration pneumonia and urinary tract infection. Continue antibiotics. No evidence of any septic shock. 3. Escherichia coli extended-spectrum beta-lactamase urinary tract infection. We will involve Infectious Disease on the case for antibiotic management. 4. Parkinson disease. Continue anti-parkinsonian medications. 5. Type 2 diabetes mellitus. Continue insulin regimen. We will get a hemoglobin A1c. 6. Normocytic normochromic anemia, most probably anemia of chronic disease. We will monitor the H and H closely. We will order an iron panel on this patient. 7. Deconditioning. Status post evaluation by physical therapy. Physical therapy recommended detention facility placement. As per family, they want to take the patient back home with home health once the patient is medically stable. 8. Fluid, electrolytes and nutrition. Carbohydrate controlled diet. 9. Deep venous thrombosis prophylaxis. Subcutaneous heparin. 10. Gastrointestinal prophylaxis. Histamine 2 receptor blockers. PLAN: Continue antibiotics. Involve Infectious Disease on the case. Start tapering dose of steroids. Continue inhaled bronchodilators. Case discussed with Dr. Damico. MAMTA DAMICO MD, AM/JOSE RAFAEL Conf#: [id number] DID#: [id number] MTDD
[2016-09-11] MEDS: POLYETHYLENE GLYCOL 17 GM PACKET PO SCH (20:46)
[2016-09-11] MEDS: FAMOTIDINE 20 MG INJ IV SCH (20:46)
[2016-09-11] MEDS: METHYLPREDNISOLONE 40 MG INJ IV SCH (20:46)
[2016-09-11] MEDS: NPH, HUMAN INSULIN ISOPHANE 3ML VIAL SC SCH (20:57)
[2016-09-11] MEDS: MEROPENEM 500 MG/100 ML (PMX) 100 ML IVPB SCH (21:02)
--- NOTE | 2016-09-11 22:14 | CONS ---
DATE OF ADMISSION: 09/07/2016 DATE OF CONSULTATION: 09/11/2016 TYPE OF CONSULTATION: Infectious disease. REASON FOR CONSULTATION: Antibiotic management. HISTORY OF PRESENT ILLNESS: Tavon Rowell is an 89-year-old male with numerous problems who comes in with cough and fever and is being seen for antibiotic management. His past problems includ e: 1. History of Parkinson disease. 2. Chronic obstructive pulmonary disease. 3. Adult-onset diabetes mellitus. 4. Coronary artery disease with stent placement. 5. Status post cholecystectomy. 6. ALLERGY TO CYANOCOBALAMIN. The patient is wheelchair bound. He comes in with a cough productive of whitish to yellowish sputum . On admission, his temperature was 101.8. He was tachycardic to 114. Hemoglobin was 12.4. Lacti c acid within normal limits. Chest x-ray shows bilateral upper lobe scarring, with right worse than left, and bibasilar atelectasis, unchanged. PAST MEDICAL HISTORY: Operations as outlined. FAMILY HISTORY: Noncontributory. SOCIAL HISTORY: He is an ex-smoker, quit 50 years ago. ALLERGIES: CYANOCOBALAMIN. MEDICATIONS: Include: 1. Sinemet. 2. Metformin. Currently, his white count is 5.5, H and H of 11.1 and 33.2, platelet count 176,000. BUN and creati nine 12/0.62. Urinalysis is positive for nitrites and leukocyte esterase. His chest x-ray from the showed no changes, extensive pleural and parenchymal scarring in the right lung from prior ins ults, possibly inflammatory processes such as TB. 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 Currently, patient is thought to be septic secondary to possible bron chitis versus pneumonia. Has a history of Parkinson disease. PHYSICAL EXAMINATION: GENERAL: The patient is an elderly appearing male who is awake, responsive, in no acute distress. SKIN: Without generalized rash. HEENT: Within normal limits. NECK: Supple. LYMPH NODES: None palpable. CHEST: Decreased breath sounds at the bases. HEART: Without murmur or gallop. ABDOMEN: Soft, nontender without organosplenomegaly or masses. EXTREMITIES: Without cyanosis, clubbing, or edema. RECTAL AND GENITAL: Deferred. NEUROLOGIC: No focal neurological abnormalities. IMPRESSION AND PLAN: The patient is currently on Levaquin. He is being treated for what appears to be bronchitis. His urine is growing Escherichia coli, extended-spectrum beta-lactamase, sensitive to imipenem. His sputum is growing Pseudomonas aeruginosa, also sensitive to imipenem. I will swit ch him over to imipenem or meropenem. Discontinue the Levaquin. I will dictate my findings to the hospitalist. Dictated By: RADHA SIDDIQUI MD, JD/JOSE RAFAEL Conf#: [id number] DID#: [id number] CC: TA SAHA MD;*End*
[2016-09-12] VITALS (11 sets, daily range): BP systolic 141–159; BP diastolic 61–74; PULSE 73–103; RESP 18
[2016-09-12] MEDS: ACCU-CHEK XX SCH (02:00)
[2016-09-12] MEDS: LEVALBUTEROL (NEB) 0.63 MG/3 ML AMP HHN SCH ×4 (02:22→19:33)
[2016-09-12] MEDS ORDERED: LEVOFLOXACIN 500 MG TAB PO SCH (06:00)
[2016-09-12] MEDS: MEROPENEM 500 MG/100 ML (PMX) 100 ML IVPB SCH ×3 (06:22→21:27)
[2016-09-12] MEDS: SOD CHLORIDE 0.9% 1,000 ML IV SCH ×2 (06:23→18:20)
[2016-09-12 06:40] LABS: ADD SCAN DIFF NO
[2016-09-12 06:44] LABS: ABNORMAL IP MESSAGE 1; BASOPHILS % 0.4 % (0.0-2.0); EOSINOPHILS % 0.2 % (0.0-7.0); HEMATOCRIT 34.9 % (42.0-52.0); HEMOGLOBIN 11.5 g/dl (14.0-18.0); LYMPHOCYTES # 0.5 10^3/ul (0.8-2.9); LYMPHOCYTES % 10.1 % (15.0-51.0); MEAN CORPUSCULAR HEMOGLOBIN 29.9 pg (29.0-33.0); MEAN CORPUSCULAR VOLUME 90.6 fl (82.0-101.0); MEAN PLATELET VOLUME 8.9 fl (7.4-10.4); MONOCYTE # 0.1 10^3/ul (0.3-0.9); MONOCYTES % 2.1 % (0.0-11.0); NEUTROPHIL # 4.5 10^3/ul (1.6-7.5); NEUTROPHILS % 84.4 % (39.0-77.0); PLATELET COUNT 217 10^3/UL (140-415); RED BLOOD COUNT 3.85 10^6/ul (4.70-6.10); RED CELL DISTRIBUTION WIDTH 13.4 % (11.5-14.5); WHITE BLOOD COUNT 5.4 10^3/ul (4.8-10.8)
[2016-09-12 07:10] LABS: IRON 43 ug/dl (35-150)
[2016-09-12 07:11] LABS: CALCIUM 8.9 mg/dl (8.4-10.2); CREATININE 0.58 mg/dl (0.61-1.24); POTASSIUM 4.3 mmol/L (3.5-5.1)
[2016-09-12 07:19] LABS: TOTAL IRON BINDING CAPACITY 229 ug/dl (241-421)
[2016-09-12] MEDS: METHYLPREDNISOLONE 40 MG INJ IV SCH ×2 (08:33→21:27)
[2016-09-12] MEDS: POLYETHYLENE GLYCOL 17 GM PACKET PO SCH ×2 (08:33→21:27)
[2016-09-12] MEDS: CARBIDOPA/LEVODOPA (25/100) TAB PO SCH ×3 (08:34→21:27)
[2016-09-12 08:36] LABS: CHOL/HDL RATIO 3.2 RATIO; MAGNESIUM 1.9 mg/dl (1.7-2.5); PHOSPHORUS 3.6 mg/dl (2.5-4.9)
[2016-09-12] MEDS: HEPARIN 5,000 UNIT/0.5 ML VIAL SC SCH ×2 (08:37→21:37)
[2016-09-12] MEDS: NPH, HUMAN INSULIN ISOPHANE 3ML VIAL SC SCH ×2 (08:37→21:40)
[2016-09-12] MEDS: INSULIN ASPART [NOVOLOG] 3 ML PEN SC SCH ×4 (08:38→21:41)
[2016-09-12] MEDS: INSULIN GLARGINE [LANtus] 3 ML PEN SC SCH (08:39)
[2016-09-12 09:05] LABS: THYROID STIMULATING HORMONE 0.3 MIU/L (0.465-4.680)
[2016-09-12] MEDS: FAMOTIDINE 20 MG INJ IV SCH ×2 (09:10→21:42)
--- NOTE | 2016-09-12 13:19 | PN ---
DATE: 09/12/2016 SUBJECTIVE: No events overnight. No fevers. The patient is lethargic, lying comfortably in bed. LABORATORY DATA: WBC today 5.4, platelets 217, neutrophils 84.4. BUN 14, creatinine 0.58. MICROBIOLOGY: Sputum culture grew Pseudomonas aeruginosa. Urine culture growing E. coli ESBL. ANTIMICROBIALS: The patient is on meropenem, status post Levaquin. PHYSICAL EXAMINATION: GENERAL: This is a fragile, elderly man who is in no distress. HEENT: Head atraumatic, normocephalic. Sclerae anicteric. Buccal mucosa dry. NECK: Supple, trachea midline. CHEST: Rise symmetrical. Breath sounds diminished to bases. HEART: S1, S2. ABDOMEN: Soft. Bowel sounds present. EXTREMITIES: Without cyanosis. ASSESSMENT: 1. Sepsis with acute on chronic encephalopathy. 2. Urinary tract infection with urine culture growing Escherichia coli extended-spectrum beta-lacta jeanmarie. 3. Chronic obstructive pulmonary disease exacerbation with acute tracheobronchitis. Cultures growi ng Pseudomonas aeruginosa. 4. Parkinson's dementia. 5. Diabetes. 6. History of cardiac stent. PLAN: Remains stable. Continue present care. Continue on current antimicrobials. Anti-aspiration measures. Dictated By: SYLVAIN MENA JUMBO OPERATOR for RADHA ZHU/JOSE RAFAEL Conf#: [id number] DID#: [id number]
--- NOTE | 2016-09-12 14:45 | PN ---
Date/Time of Note Date/Time of Note DATE: 09/12/16 TIME: 14:40 Assessment/Plan VTE Prophylaxis VTE Prophylaxis Intervention: heparin Lines/Catheters IV Catheter Type (from [facility]): Peripheral IV Urinary Cath still in place: No Assessment/Plan Assessment/Plan 1. Chronic obstructive pulmonary disease exacerbation. Continue inhaled bronchodilators/solumedrol and meropenem. 2. Sepsis with underlying aspiration pneumonia and urinary tract infection, improved 3. Escherichia coli extended-spectrum beta-lactamase urinary tract infection. on meropenem 4. Parkinson disease. Continue anti-parkinsonian medications. 5. Type 2 diabetes mellitus. Continue insulin 6. Normocytic normochromic anemia, most probably anemia of chronic disease. We will monitor the H and H closely 7. Deconditioning. Status post evaluation by physical therapy. Physical therapy recommended long term facility placement. As per family, they want to take the patient back home with home health once the patient is medically stable. 8. Fluid, electrolytes and nutrition. Carbohydrate controlled diet. 9. Deep venous thrombosis prophylaxis. Subcutaneous heparin. Exam/Review of Systems Vital Signs Vitals Vital Signs Date Time Temp Pulse Resp B/P Pulse Ox O2 Delivery O2 Flow Rate FiO2 09/12/16 13:41 82 20 97 Nasal Cannula 2.0 09/12/16 11:40 98.5 155/73 Intake and Output 09/11/16 09/11/16 09/12/16 15:00 23:00 07:00 Intake Total 1525 ml 1500 ml Output Total 400 ml Balance 1525 ml 1100 ml Results Result Diagram: 09/12/16 0558 09/12/16 0558 Results 24 hrs Laboratory Tests Test 09/11/16 17:19 09/11/16 20:45 09/12/16 05:58 09/12/16 07:58 Bedside Glucose 116 150 171 White Blood Count 5.4 Red Blood Count 3.85 L Hemoglobin 11.5 L Hematocrit 34.9 L Mean Corpuscular Volume 90.6 Mean Corpuscular Hemoglobin 29.9 Mean Corpuscular Hemoglobin Concent 33.0 Red Cell Distribution Width 13.4 Platelet Count 217 # Mean Platelet Volume 8.9 Neutrophils % 84.4 H Lymphocytes % 10.1 L Monocytes % 2.1 Eosinophils % 0.2 Basophils % 0.4 Nucleated Red Blood Cells % 0.0 Neutrophils # 4.5 Lymphocytes # 0.5 L Monocytes # 0.1 L Eosinophils # 0.0 Basophils # 0.0 Nucleated Red Blood Cells # 0.0 Sodium Level 137 Potassium Level 4.3 Chloride Level 103 Carbon Dioxide Level 28 Anion Gap 10 Blood Urea Nitrogen 14 Creatinine 0.58 L Glucose Level 214 Hemoglobin A1c 6.5 H Calcium Level 8.9 Phosphorus Level 3.6 Magnesium Level 1.9 Iron Level 43 Total Iron Binding Capacity 229 L Percent Iron Saturation 19 L Ferritin 296.0 H Triglycerides Level 47 Cholesterol Level 128 LDL Cholesterol, Calculated 80 HDL Cholesterol 39 Cholesterol/HDL Ratio 3.2 Thyroid Stimulating Hormone (TSH) 0.300 L Free Thyroxine 1.28 Test 09/12/16 12:27 Bedside Glucose 179 Medications Medications Current Medications Acetaminophen (Tylenol Tab) 650 mg Q6H PRN PO PAIN AND OR ELEVATED TEMP Last administered on 09/09/16 00:45; Admin Dose 650 MG; Start 09/07/16 at 04:00 Ondansetron HCl (Zofran Inj) 4 mg Q6H PRN IV NAUSEA AND/OR VOMITING; Start 03/16 at 05:00 Heparin Sodium (Porcine) 5000 unit 5,000 unit BID SC Last administered on 08:37; Admin Dose 5,000 UNIT; Start 09/07/16 at 09:00 Sodium Chloride (NS) 1,000 ml @ 75 mls/hr [id number] IV Last administered on 09/12 06:23; Admin Dose 75 MLS/HR; Start 09/07/16 at 05:00 Insulin Glargine (Lantus) 10 unit DAILY@08 SC Last administered on 09/12/16 08 :39; Admin Dose 10 UNIT; Start 09/07/16 at 08:00 Diagnostic Test (Pha) (Accu-Chek) 1 ea 02 XX Last administered on 09/11/16 02: 50; Admin Dose 1 EA; Start 09/08/16 at 02:00 Miscellaneous Information 1 ea NOTE XX ; Start 09/07/16 at 06:45 Glucose (Glutose) 15 gm Q15M PRN PO DECREASED GLUCOSE; Start 09/07/16 at 06:45 Glucose (Glutose) 22.5 gm Q15M PRN PO DECREASED GLUCOSE; Start 09/07/16 at 06: 45 Dextrose (D50w Syringe) 25 ml Q15M PRN IV DECREASED GLUCOSE; Start 09/07/16 at 06:45 Dextrose (D50w Syringe) 50 ml Q15M PRN IV DECREASED GLUCOSE; Start 09/07/16 at 06:45 Glucagon (Glucagen) 1 mg Q15M PRN IM DECREASED GLUCOSE; Start 09/07/16 at 06:45 Glucose (Glutose) 15 gm Q15M PRN BUCCAL DECREASED GLUCOSE; Start 09/07/16 at 06 :45 Carbidopa/Levodopa (Sinemet (25/ 100)) 2 tab TID PO Last administered on 12:28; Admin Dose 2 TAB; Start 09/08/16 at 13:00 Polyethylene Glycol (Miralax) 17 gm BID PO Last administered on 09/12/16 08:33 ; Admin Dose 17 GM; Start 09/11/16 at 21:00 Bisacodyl 10 mg 10 mg DAILY PRN PO CONSTIPATION Last administered on 09/11/16 17:18; Admin Dose 10 MG; Start 09/11/16 at 13:30 Meropenem (Merrem 500 Mg/ 100 ml (Pmx)) 100 ml @ 200 mls/hr Q8 IVPB Last administered on 09/12/16 14:18; Admin Dose 200 MLS/HR; Start 09/11/16 at 22:00 Famotidine (Pepcid Iv) 20 mg BID IV Last administered on 09/12/16 09:10; Admin Dose 20 MG; Start 09/11/16 at 21:00 Methylprednisolone Sodium Succinate (Solu-Medrol) 40 mg BID@08,20 IV Last administered on 09/12/16 08:33; Admin Dose 40 MG; Start 09/11/16 at 21:00 Insulin Human NPH (Humulin N) 10 unit BID@08,20 SC Last administered on 08:37; Admin Dose 10 UNIT; Start 09/11/16 at 20:00 PRESTON MILLARD MD September 12, 2016 14:45
[2016-09-13] MEDS: LEVALBUTEROL (NEB) 0.63 MG/3 ML AMP HHN SCH ×4 (01:16→20:00)
[2016-09-13] MEDS: ACCU-CHEK XX SCH (02:00)
[2016-09-13] MEDS: MEROPENEM 500 MG/100 ML (PMX) 100 ML IVPB SCH ×3 (06:08→22:15)
[2016-09-13] MEDS: SOD CHLORIDE 0.9% 1,000 ML IV SCH ×2 (06:54→20:43)
[2016-09-13 07:31] LABS: ADD SCAN DIFF NO
[2016-09-13 07:41] VITALS: BP 164/77; RESP 18
[2016-09-13 07:41] LABS: BASOPHILS % 0.1 % (0.0-2.0); EOSINOPHILS % 0.1 % (0.0-7.0); HEMATOCRIT 35.9 % (42.0-52.0); LYMPHOCYTES # 0.9 10^3/ul (0.8-2.9); LYMPHOCYTES % 12.2 % (15.0-51.0); MEAN CORPUSCULAR HGB CONC 33.4 g/dl (32.0-37.0); MEAN CORPUSCULAR VOLUME 89.8 fl (82.0-101.0); MEAN PLATELET VOLUME 9.2 fl (7.4-10.4); MONOCYTE # 0.3 10^3/ul (0.3-0.9); MONOCYTES % 3.3 % (0.0-11.0); NEUTROPHIL # 6.2 10^3/ul (1.6-7.5); NEUTROPHILS % 82.1 % (39.0-77.0); PLATELET COUNT 221 10^3/UL (140-415); RED CELL DISTRIBUTION WIDTH 13.2 % (11.5-14.5); WHITE BLOOD COUNT 7.6 10^3/ul (4.8-10.8)
[2016-09-13 07:59] LABS: PHOSPHORUS 3.1 mg/dl (2.5-4.9)
[2016-09-13 08:04] LABS: CREATININE 0.55 mg/dl (0.61-1.24); POTASSIUM 3.9 mmol/L (3.5-5.1)
[2016-09-13] MEDS: INSULIN ASPART [NOVOLOG] 3 ML PEN SC SCH ×4 (08:58→22:15)
[2016-09-13] MEDS: NPH, HUMAN INSULIN ISOPHANE 3ML VIAL SC SCH ×2 (08:58→22:38)
[2016-09-13] MEDS: INSULIN GLARGINE [LANtus] 3 ML PEN SC SCH (08:59)
[2016-09-13] MEDS: HEPARIN 5,000 UNIT/0.5 ML VIAL SC SCH ×2 (09:00→20:59)
[2016-09-13] MEDS: FAMOTIDINE 20 MG INJ IV SCH ×2 (09:00→20:46)
[2016-09-13] MEDS: METHYLPREDNISOLONE 40 MG INJ IV SCH (09:00)
[2016-09-13] MEDS: POLYETHYLENE GLYCOL 17 GM PACKET PO SCH ×2 (09:01→20:46)
[2016-09-13] MEDS: CARBIDOPA/LEVODOPA (25/100) TAB PO SCH ×3 (09:01→20:46)
[2016-09-13] MEDS ORDERED: VANCOMYCIN IV PER PHARMACY XX SCH (11:00)
[2016-09-13 11:36] VITALS: BP 146/77; RESP 18
[2016-09-13] MEDS ORDERED: VANCOMYCIN 1.25 GM in SOD CHLORIDE 0.9% 250 ML IVPB SCH (13:00)
[2016-09-13] MEDS ORDERED: Ipratropium 0.02% (Neb) HHN (13:28)
[2016-09-13] MEDS ORDERED: LEVO250T9 PO (13:28)
[2016-09-13] MEDS ORDERED: NOVO3I SC (13:28)
[2016-09-13] MEDS ORDERED: LEVA0.634 HHN (13:28)
[2016-09-13] MEDS ORDERED: LANT3I SC (13:28)
[2016-09-13] MEDS ORDERED: PRED10TA PO (13:29)
--- NOTE | 2016-09-13 13:36 | PN ---
Date/Time of Note Date/Time of Note DATE: 09/13/16 TIME: 13:34 Assessment/Plan VTE Prophylaxis VTE Prophylaxis Intervention: heparin Lines/Catheters IV C[facility]ter Type (from [facility]): Peripheral IV Urinary Cath still in place: No Assessment/Plan Assessment/Plan 1. Chronic obstructive pulmonary disease exacerbation. improved, on neb prn and tapering dosge of prednisone 2. Sepsis with underlying aspiration pneumonia and urinary tract infection, improved 3. Escherichia coli extended-spectrum beta-lactamase urinary tract infection. on meropenem 4. Parkinson disease. Continue anti-parkinsonian medications. 5. Type 2 diabetes mellitus. Continue insulin 6. Normocytic normochromic anemia, most probably anemia of chronic disease. 7. Dementia,chronic 8. Deep venous thrombosis prophylaxis. Subcutaneous heparin. Subjective 24 Hr Interval Summary Free Text/Dictation afebrile no shortness of breath Exam/Review of Systems Vital Signs Vitals Vital Signs Date Time Temp Pulse Resp B/P Pulse Ox O2 Delivery O2 Flow Rate FiO2 09/13/16 11:36 97.8 80 18 146/77 100 09/13/16 08:15 Nasal Cannula 2.0 Intake and Output 09/12/16 09/12/16 09/13/16 14:59 22:59 06:59 Intake Total 1925 ml 1100 ml Balance 1925 ml 1100 ml Exam Constitutional: alert, non-verbal Head: atraumatic, normocephalic Eyes: EOMI, PERRL, nl conjunctiva, nl lids ENMT: nl external ears & nose, nl lips & teeth, nl nasal mucosa & septum Neck: non-tender, supple Respiratory: clear to auscultation, normal air movement, No congested cough, No crackles/rales, No diminished breath sounds, No intercostal retraction, No labored breathing, No other, No respirations, No tactile fremitus, No wheezing Cardiovascular: nl pulses, regular rate and rhythm, No S3, No S4, No bruits, No diastolic murmur, No edema, No gallop, No irregular rhythm, No jugular venous distention (JVD), No murmurs/extra sounds, No other, No rub, No systolic murmur Gastrointestinal: nl liver, spleen, non-tender, soft, No ascites, No bowel sounds, No distended, No firm, No hepatomegaly, No mass , No other, No rebound or guarding, No splenomegaly, No surgical scars, No tender Musculoskeletal: nl extremities to inspection Neurological: CANE CUTTER II-XII intact, confused Skin: nl turgor Lymph: nl lymph nodes Results Result Diagram: 09/13/1635 09/13/16 0635 Results 24 hrs Laboratory Tests Test 09/12/16 17:22 09/12/16 21:25 09/13/16 02:51 09/13/16 06:35 Bedside Glucose 207 208 172 White Blood Count 7.6 # Red Blood Count 4.00 L Hemoglobin 12.0 L Hematocrit 35.9 L Mean Corpuscular Volume 89.8 Mean Corpuscular Hemoglobin 30.0 Mean Corpuscular Hemoglobin Concent 33.4 Red Cell Distribution Width 13.2 Platelet Count 221 Mean Platelet Volume 9.2 Neutrophils % 82.1 H Lymphocytes % 12.2 L Monocytes % 3.3 Eosinophils % 0.1 Basophils % 0.1 Nucleated Red Blood Cells % 0.0 Neutrophils # 6.2 Lymphocytes # 0.9 Monocytes # 0.3 Eosinophils # 0.0 Basophils # 0.0 Nucleated Red Blood Cells # 0.0 Sodium Level 139 Potassium Level 3.9 Chloride Level 105 Carbon Dioxide Level 28 Anion Gap 10 Blood Urea Nitrogen 16 Creatinine 0.55 L Glucose Level 182 Calcium Level 9.0 Phosphorus Level 3.1 Magnesium Level 2.0 Test 09/13/16 07:59 09/13/16 11:45 Bedside Glucose 168 197 Medications Medications Current Medications Acetaminophen (Tylenol Tab) 650 mg Q6H PRN PO PAIN AND OR ELEVATED TEMP Last administered on 09/09/16 00:45; Admin Dose 650 MG; Start 09/07/16 at 04:00 Ondansetron HCl (Zofran Inj) 4 mg Q6H PRN IV NAUSEA AND/OR VOMITING; Start 03/16 at 05:00 Heparin Sodium (Porcine) 5000 unit 5,000 unit BID SC Last administered on 09:00; Admin Dose 5,000 UNIT; Start 09/07/16 at 09:00 Sodium Chloride (NS) 1,000 ml @ 75 mls/hr [id number] IV Last administered on 09/13 06:54; Admin Dose 75 MLS/HR; Start 09/07/16 at 05:00 Insulin Glargine (Lantus) 10 unit DAILY@08 SC Last administered on 09/13/16 08 :59; Admin Dose 10 UNIT; Start 09/07/16 at 08:00 Diagnostic Test (Pha) (Accu-Chek) 1 ea 02 XX Last administered on 09/11/16 02: 50; Admin Dose 1 EA; Start 09/08/16 at 02:00 Miscellaneous Information 1 ea NOTE XX ; Start 09/07/16 at 06:45 Glucose (Glutose) 15 gm Q15M PRN PO DECREASED GLUCOSE; Start 09/07/16 at 06:45 Glucose (Glutose) 22.5 gm Q15M PRN PO DECREASED GLUCOSE; Start 09/07/16 at 06: 45 Dextrose (D50w Syringe) 25 ml Q15M PRN IV DECREASED GLUCOSE; Start 09/07/16 at 06:45 Dextrose (D50w Syringe) 50 ml Q15M PRN IV DECREASED GLUCOSE; Start 09/07/16 at 06:45 Glucagon (Glucagen) 1 mg Q15M PRN IM DECREASED GLUCOSE; Start 09/07/16 at 06:45 Glucose (Glutose) 15 gm Q15M PRN BUCCAL DECREASED GLUCOSE; Start 09/07/16 at 06 :45 Carbidopa/Levodopa (Sinemet (25/ 100)) 2 tab TID PO Last administered on 09:01; Admin Dose 2 TAB; Start 09/08/16 at 13:00 Polyethylene Glycol (Miralax) 17 gm BID PO Last administered on 09/13/16 09:01 ; Admin Dose 17 GM; Start 09/11/16 at 21:00 Bisacodyl 10 mg 10 mg DAILY PRN PO CONSTIPATION Last administered on 09/11/16 17:18; Admin Dose 10 MG; Start 09/11/16 at 13:30 Meropenem (Merrem 500 Mg/ 100 ml (Pmx)) 100 ml @ 200 mls/hr Q8 IVPB Last administered on 09/13/16 06:08; Admin Dose 200 MLS/HR; Start 09/11/16 at 22:00 Famotidine (Pepcid Iv) 20 mg BID IV Last administered on 09/13/16 09:00; Admin Dose 20 MG; Start 09/11/16 at 21:00 Insulin Human NPH (Humulin N) 10 unit BID@08,20 SC Last administered on 08:58; Admin Dose 10 UNIT; Start 09/11/16 at 20:00 Methylprednisolone Sodium Succinate 20 mg 20 mg BID@08,20 IV Last administered on 09/13/16 09:00; Admin Dose 20 MG; Start 09/12/16 at 20:00 Vancomycin HCl 1.25 gm/Sodium Chloride 250 ml @ 83.333 mls/ hr ONCE IVPB ; Start 09/13/16 at 13:00; Stop 09/13/16 at 18:00 Vancomycin HCl (Vancocin) 250 ml @ 125 mls/hr Q24H IVPB ; Start 09/14/16 at 13: 00 PRESTON MILLARD MD September 13, 2016 13:36
--- NOTE | 2016-09-13 14:21 | CONS ---
Date/Time of Note Date/Time of Note DATE: 09/13/16 TIME: 14:19 Assessment/Plan Assessment/Plan Chief Complaint/Hosp Course SUBJECTIVE: No events overnight. No fevers. The patient is awake, follows commands, at bedside MICROBIOLOGY: Sputum culture grew Pseudomonas aeruginosa and MRSA. Urine culture growing E. coli ESBL. ANTIMICROBIALS: The patient is on meropenem, and Vanco PHYSICAL EXAMINATION: GENERAL: This is a fragile, elderly man who is in no distress. HEENT: Head atraumatic, normocephalic. Sclerae anicteric. Buccal mucosa dry. NECK: Supple, trachea midline. CHEST: Rise symmetrical. Breath sounds diminished to bases. HEART: S1, S2. ABDOMEN: Soft. Bowel sounds present. EXTREMITIES: Without cyanosis. ASSESSMENT: 1. Sepsis with acute on chronic encephalopathy. 2. Urinary tract infection with urine culture growing Escherichia coli extended -spectrum beta-lactamase. 3. Chronic obstructive pulmonary disease exacerbation with acute tracheobronchitis. Cultures growing Pseudomonas aeruginosa/MRSA. 4. Parkinson's dementia. 5. Diabetes. 6. History of cardiac stents. PLAN: Remains stable. More awake. Continue present care, antibiotics, anti- aspiration measures. DW pt/ Problems: Consultation Date/Type/Reason Admit Date/Time September 07, 2016 at 15:26 Initial Consult Date Type of Consultation: ID Exam/Review of Systems Vital Signs Vitals Vital Signs Date Time Temp Pulse Resp B/P Pulse Ox O2 Delivery O2 Flow Rate FiO2 09/13/16 13:55 77 16 98 Nasal Cannula 2.0 09/13/16 11:36 97.8 146/77 Intake and Output 09/12/16 09/12/16 09/13/16 15:00 23:00 07:00 Intake Total 100 ml 1825 ml 1100 ml Balance 100 ml 1825 ml 1100 ml Results Result Diagram: 09/13/16 0635 09/13/16 0635 Results 24 hrs Laboratory Tests Test 09/12/16 17:22 09/12/16 21:25 09/13/16 02:51 09/13/16 06:35 Bedside Glucose 207 208 172 White Blood Count 7.6 # Red Blood Count 4.00 L Hemoglobin 12.0 L Hematocrit 35.9 L Mean Corpuscular Volume 89.8 Mean Corpuscular Hemoglobin 30.0 Mean Corpuscular Hemoglobin Concent 33.4 Red Cell Distribution Width 13.2 Platelet Count 221 Mean Platelet Volume 9.2 Neutrophils % 82.1 H Lymphocytes % 12.2 L Monocytes % 3.3 Eosinophils % 0.1 Basophils % 0.1 Nucleated Red Blood Cells % 0.0 Neutrophils # 6.2 Lymphocytes # 0.9 Monocytes # 0.3 Eosinophils # 0.0 Basophils # 0.0 Nucleated Red Blood Cells # 0.0 Sodium Level 139 Potassium Level 3.9 Chloride Level 105 Carbon Dioxide Level 28 Anion Gap 10 Blood Urea Nitrogen 16 Creatinine 0.55 L Glucose Level 182 Calcium Level 9.0 Phosphorus Level 3.1 Magnesium Level 2.0 Test 09/13/16 07:59 09/13/16 11:45 Bedside Glucose 168 197 Medications Medications Current Medications Acetaminophen (Tylenol Tab) 650 mg Q6H PRN PO PAIN AND OR ELEVATED TEMP Last administered on 09/09/16 00:45; Admin Dose 650 MG; Start 09/07/16 at 04:00 Ondansetron HCl (Zofran Inj) 4 mg Q6H PRN IV NAUSEA AND/OR VOMITING; Start 03/16 at 05:00 Heparin Sodium (Porcine) 5000 unit 5,000 unit BID SC Last administered on 09:00; Admin Dose 5,000 UNIT; Start 09/07/16 at 09:00 Sodium Chloride (NS) 1,000 ml @ 75 mls/hr [id number] IV Last administered on 09/13 06:54; Admin Dose 75 MLS/HR; Start 09/07/16 at 05:00 Insulin Glargine (Lantus) 10 unit DAILY@08 SC Last administered on 09/13/16 08 :59; Admin Dose 10 UNIT; Start 09/07/16 at 08:00 Diagnostic Test (Pha) (Accu-Chek) 1 ea 02 XX Last administered on 09/11/16 02: 50; Admin Dose 1 EA; Start 09/08/16 at 02:00 Miscellaneous Information 1 ea NOTE XX ; Start 09/07/16 at 06:45 Glucose (Glutose) 15 gm Q15M PRN PO DECREASED GLUCOSE; Start 09/07/16 at 06:45 Glucose (Glutose) 22.5 gm Q15M PRN PO DECREASED GLUCOSE; Start 09/07/16 at 06: 45 Dextrose (D50w Syringe) 25 ml Q15M PRN IV DECREASED GLUCOSE; Start 09/07/16 at 06:45 Dextrose (D50w Syringe) 50 ml Q15M PRN IV DECREASED GLUCOSE; Start 09/07/16 at 06:45 Glucagon (Glucagen) 1 mg Q15M PRN IM DECREASED GLUCOSE; Start 09/07/16 at 06:45 Glucose (Glutose) 15 gm Q15M PRN BUCCAL DECREASED GLUCOSE; Start 09/07/16 at 06 :45 Carbidopa/Levodopa (Sinemet (25/ 100)) 2 tab TID PO Last administered on 13:55; Admin Dose 2 TAB; Start 09/08/16 at 13:00 Polyethylene Glycol (Miralax) 17 gm BID PO Last administered on 09/13/16 09:01 ; Admin Dose 17 GM; Start 09/11/16 at 21:00 Bisacodyl 10 mg 10 mg DAILY PRN PO CONSTIPATION Last administered on 09/11/16 17:18; Admin Dose 10 MG; Start 09/11/16 at 13:30 Meropenem (Merrem 500 Mg/ 100 ml (Pmx)) 100 ml @ 200 mls/hr Q8 IVPB Last administered on 09/13/16 13:55; Admin Dose 200 MLS/HR; Start 09/11/16 at 22:00 Famotidine (Pepcid Iv) 20 mg BID IV Last administered on 09/13/16 09:00; Admin Dose 20 MG; Start 09/11/16 at 21:00 Insulin Human NPH 10 unit 10 unit BID@08,20 SC Last administered on 09/13/16 08:58; Admin Dose 10 UNIT; Start 09/11/16 at 20:00 Vancomycin HCl 1.25 gm/Sodium Chloride 250 ml @ 83.333 mls/ hr ONCE IVPB Last administered on 09/13/16 13:55; Admin Dose 83.333 MLS/HR; Start 09/13/16 at 13: 00; Stop 09/13/16 at 18:00 Vancomycin HCl (Vancocin) 250 ml @ 125 mls/hr Q24H IVPB ; Start 09/14/16 at 13: 00 Methylprednisolone Sodium Succinate (Solu-Medrol) 20 mg DAILY IV ; Start at 09:00 SYLVAIN MENA NP September 13, 2016 14:21
[2016-09-13 15:48] VITALS: BP 163/74; RESP 16
[2016-09-13 19:11] VITALS: BP 151/72; RESP 18
[2016-09-13] MEDS: ACETAMINOPHEN 325 MG TAB PO PRN (20:46)
[2016-09-14] MEDS: ACCU-CHEK XX SCH (02:00)
[2016-09-14] MEDS: LEVALBUTEROL (NEB) 0.63 MG/3 ML AMP HHN SCH ×4 (02:02→19:47)
[2016-09-14] MEDS: SOD CHLORIDE 0.9% 1,000 ML IV SCH ×3 (04:37→22:14)
[2016-09-14] MEDS: MEROPENEM 500 MG/100 ML (PMX) 100 ML IVPB SCH ×3 (06:13→21:02)
[2016-09-14 07:15] VITALS: BP 192/81; RESP 18
[2016-09-14] MEDS: INSULIN ASPART [NOVOLOG] 3 ML PEN SC SCH ×4 (08:12→20:39)
[2016-09-14] MEDS: NPH, HUMAN INSULIN ISOPHANE 3ML VIAL SC SCH ×2 (08:49→20:40)
[2016-09-14] MEDS: INSULIN GLARGINE [LANtus] 3 ML PEN SC SCH (08:50)
[2016-09-14] MEDS: METHYLPREDNISOLONE 40 MG INJ IV SCH (10:07)
[2016-09-14] MEDS: CARBIDOPA/LEVODOPA (25/100) TAB PO SCH ×3 (10:07→22:14)
[2016-09-14] MEDS: POLYETHYLENE GLYCOL 17 GM PACKET PO SCH ×2 (10:08→20:29)
[2016-09-14] MEDS: FAMOTIDINE 20 MG INJ IV SCH ×2 (10:11→20:29)
[2016-09-14] MEDS: HEPARIN 5,000 UNIT/0.5 ML VIAL SC SCH ×2 (10:54→20:43)
--- NOTE | 2016-09-14 13:42 | CONS ---
Date/Time of Note Date/Time of Note DATE: 09/14/16 TIME: 13:41 Assessment/Plan Assessment/Plan Chief Complaint/Hosp Course SUBJECTIVE: No events overnight. No fevers. Looks comfortable MICROBIOLOGY: Sputum culture grew Pseudomonas aeruginosa and MRSA. Urine culture growing E. coli ESBL. ANTIMICROBIALS: The patient is on Meropenem, Vanco PHYSICAL EXAMINATION: GENERAL: This is a fragile, elderly man who is in no distress. HEENT: Head atraumatic, normocephalic. Sclerae anicteric. Buccal mucosa dry. NECK: Supple, trachea midline. CHEST: Rise symmetrical. Breath sounds diminished to bases. HEART: S1, S2. ABDOMEN: Soft. Bowel sounds present. EXTREMITIES: Without cyanosis. ASSESSMENT: 1. Sepsis with acute on chronic encephalopathy. 2. Urinary tract infection with urine culture growing Escherichia coli extended -spectrum beta-lactamase. 3. Chronic obstructive pulmonary disease exacerbation with acute tracheobronchitis. Cultures growing Pseudomonas aeruginosa/MRSA. 4. Parkinson's dementia. 5. Diabetes. 6. History of cardiac stents. PLAN: Remains stable. Continue present care, antibiotics, anti-aspiration measures. DW pt/ Problems: Consultation Date/Type/Reason Admit Date/Time September 07, 2016 at 15:26 Type of Consultation: ID Exam/Review of Systems Vital Signs Vitals Vital Signs Date Time Temp Pulse Resp B/P Pulse Ox O2 Delivery O2 Flow Rate FiO2 09/14/16 08:46 83 16 100 Aerosol 5.0 28 T Tube 09/14/16 07:15 97.3 192/81 Intake and Output 09/13/16 09/13/16 09/14/16 15:00 23:00 07:00 Intake Total 700 ml 660 ml 1360 ml Balance 700 ml 660 ml 1360 ml Results Result Diagram: 09/13/16 0635 09/13/16 0635 Results 24 hrs Laboratory Tests Test 09/13/16 17:24 09/13/16 22:14 09/14/16 08:11 09/14/16 12:11 Bedside Glucose 101 112 90 102 Medications Medications Current Medications Acetaminophen (Tylenol Tab) 650 mg Q6H PRN PO PAIN AND OR ELEVATED TEMP Last administered on 09/13/16t 20:46; Admin Dose 650 MG; Start 09/07/16 at 04:00 Ondansetron HCl (Zofran Inj) 4 mg Q6H PRN IV NAUSEA AND/OR VOMITING; Start 03/16 at 05:00 Heparin Sodium (Porcine) 5000 unit 5,000 unit BID SC Last administered on 10:54; Admin Dose 5,000 UNIT; Start 09/07/16 at 09:00 Sodium Chloride (NS) 1,000 ml @ 75 mls/hr [id number] IV Last administered on 09/14 04:37; Admin Dose 75 MLS/HR; Start 09/07/16 at 05:00 Insulin Glargine (Lantus) 10 unit DAILY@08 SC Last administered on 09/14/16 08 :50; Admin Dose 10 UNIT; Start 09/07/16 at 08:00 Diagnostic Test (Pha) (Accu-Chek) 1 ea 02 XX Last administered on 09/11/16 02: 50; Admin Dose 1 EA; Start 09/08/16 at 02:00 Miscellaneous Information 1 ea NOTE XX ; Start 09/07/16 at 06:45 Glucose (Glutose) 15 gm Q15M PRN PO DECREASED GLUCOSE; Start 09/07/16 at 06:45 Glucose (Glutose) 22.5 gm Q15M PRN PO DECREASED GLUCOSE; Start 09/07/16 at 06: 45 Dextrose (D50w Syringe) 25 ml Q15M PRN IV DECREASED GLUCOSE; Start 09/07/16 at 06:45 Dextrose (D50w Syringe) 50 ml Q15M PRN IV DECREASED GLUCOSE; Start 09/07/16 at 06:45 Glucagon (Glucagen) 1 mg Q15M PRN IM DECREASED GLUCOSE; Start 09/07/16 at 06:45 Glucose (Glutose) 15 gm Q15M PRN BUCCAL DECREASED GLUCOSE; Start 09/07/16 at 06 :45 Carbidopa/Levodopa (Sinemet (25/ 100)) 2 tab TID PO Last administered on 10:07; Admin Dose 2 TAB; Start 09/08/16 at 13:00 Polyethylene Glycol (Miralax) 17 gm BID PO Last administered on 09/14/16 10:08 ; Admin Dose 17 GM; Start 09/11/16 at 21:00 Bisacodyl 10 mg 10 mg DAILY PRN PO CONSTIPATION Last administered on 09/11/16 17:18; Admin Dose 10 MG; Start 09/11/16 at 13:30 Meropenem (Merrem 500 Mg/ 100 ml (Pmx)) 100 ml @ 200 mls/hr Q8 IVPB Last administered on 09/14/16 06:13; Admin Dose 200 MLS/HR; Start 09/11/16 at 22:00 Famotidine (Pepcid Iv) 20 mg BID IV Last administered on 09/14/16 10:11; Admin Dose 20 MG; Start 09/11/16 at 21:00 Insulin Human NPH 10 unit 10 unit BID@08,20 SC Last administered on 09/14/16 08:49; Admin Dose 10 UNIT; Start 09/11/16 at 20:00 Vancomycin HCl (Vancocin) 250 ml @ 125 mls/hr Q24H IVPB ; Start 09/14/16 at 13: 00 Methylprednisolone Sodium Succinate (Solu-Medrol) 20 mg DAILY IV Last administered on 09/14/16 10:07; Admin Dose 20 MG; Start 09/14/16 at 09:00 SYLVAIN MENA NP September 14, 2016 13:42
[2016-09-14] MEDS: VANCOMYCIN 1 GM in NS 250 ML IVPB SCH (13:44)
--- NOTE | 2016-09-14 17:24 | PN ---
Date/Time of Note Date/Time of Note DATE: 09/14/16 TIME: 17:21 Assessment/Plan VTE Prophylaxis VTE Prophylaxis Intervention: SCD's Lines/Catheters IV Catheter Type (from Nrs): Peripheral IV Urinary Cath still in place: No Assessment/Plan Assessment/Plan 1. Acute encephalopathy due to UTI, PNA 2. Sepsis with acute on chronic encephalopathy. 2. Urinary tract infection with urine culture growing Escherichia coli extended -spectrum beta-lactamase. 3. Chronic obstructive pulmonary disease exacerbation with acute tracheobronchitis. Cultures growing Pseudomonas aeruginosa/MRSA. 4. Parkinson's dementia. 5. Diabetes. 6. History of CAD s/p Previous Stent placement Plan: Continue current care BP stable afebrile IV abx vanocmcycin and zosyn , ID following on I Vsolu medrol will switch to PO prednisone tomorrow PT evaluation and treatment will need SNF vs home health for d/c planning, not ready for d/c yet Subjective 24 Hr Interval Summary Free Text/Dictation pt still lethargic, fatigue, SOB Exam/Review of Systems Vital Signs Vitals Vital Signs Date Time Temp Pulse Resp B/P Pulse Ox O2 Delivery O2 Flow Rate FiO2 09/14/16 08:23 67 12 97 Nasal Cannula 2.0 09/14/16 07:15 97.3 192/81 Intake and Output 09/13/16 09/13/16 09/14/16 15:00 23:00 07:00 Intake Total 700 ml 660 ml 1360 ml Balance 700 ml 660 ml 1360 ml Exam GENERAL: This is a fragile, elderly man who is in no distress. HEENT: Head atraumatic, normocephalic. Sclerae anicteric. Buccal mucosa dry. NECK: Supple, trachea midline. CHEST: Rise symmetrical. Breath sounds diminished to bases. HEART: S1, S2. ABDOMEN: Soft. Bowel sounds present. EXTREMITIES: Without cyanosis. Results Result Diagram: 09/13/16 0635 09/13/16 0635 Results 24 hrs Laboratory Tests Test 09/13/16 17:24 09/13/16 22:14 09/14/16 08:11 09/14/16 12:11 Bedside Glucose 101 112 90 102 Medications Medications Current Medications Acetaminophen (Tylenol Tab) 650 mg Q6H PRN PO PAIN AND OR ELEVATED TEMP Last administered on 09/13/16t 20:46; Admin Dose 650 MG; Start 09/07/16 at 04:00 Ondansetron HCl (Zofran Inj) 4 mg Q6H PRN IV NAUSEA AND/OR VOMITING; Start 03/16 at 05:00 Heparin Sodium (Porcine) 5000 unit 5,000 unit BID SC Last administered on 10:54; Admin Dose 5,000 UNIT; Start 09/07/16 at 09:00 Sodium Chloride (NS) 1,000 ml @ 75 mls/hr [id number] IV Last administered on 09/14 04:37; Admin Dose 75 MLS/HR; Start 09/07/16 at 05:00 Insulin Glargine (Lantus) 10 unit DAILY@08 SC Last administered on 09/14/16 08 :50; Admin Dose 10 UNIT; Start 09/07/16 at 08:00 Diagnostic Test (Pha) (Accu-Chek) 1 ea 02 XX Last administered on 09/11/16 02: 50; Admin Dose 1 EA; Start 09/08/16 at 02:00 Miscellaneous Information 1 ea NOTE XX ; Start 09/07/16 at 06:45 Glucose (Glutose) 15 gm Q15M PRN PO DECREASED GLUCOSE; Start 09/07/16 at 06:45 Glucose (Glutose) 22.5 gm Q15M PRN PO DECREASED GLUCOSE; Start 09/07/16 at 06: 45 Dextrose (D50w Syringe) 25 ml Q15M PRN IV DECREASED GLUCOSE; Start 09/07/16 at 06:45 Dextrose (D50w Syringe) 50 ml Q15M PRN IV DECREASED GLUCOSE; Start 09/07/16 at 06:45 Glucagon (Glucagen) 1 mg Q15M PRN IM DECREASED GLUCOSE; Start 09/07/16 at 06:45 Glucose (Glutose) 15 gm Q15M PRN BUCCAL DECREASED GLUCOSE; Start 09/07/16 at 06 :45 Carbidopa/Levodopa (Sinemet (25/ 100)) 2 tab TID PO Last administered on 13:44; Admin Dose 2 TAB; Start 09/08/16 at 13:00 Polyethylene Glycol (Miralax) 17 gm BID PO Last administered on 09/14/16 10:08 ; Admin Dose 17 GM; Start 09/11/16 at 21:00 Bisacodyl 10 mg 10 mg DAILY PRN PO CONSTIPATION Last administered on 09/11/16 17:18; Admin Dose 10 MG; Start 09/11/16 at 13:30 Meropenem (Merrem 500 Mg/ 100 ml (Pmx)) 100 ml @ 200 mls/hr Q8 IVPB Last administered on 09/14/16 16:26; Admin Dose 200 MLS/HR; Start 09/11/16 at 22:00 Famotidine (Pepcid Iv) 20 mg BID IV Last administered on 09/14/16 10:11; Admin Dose 20 MG; Start 09/11/16 at 21:00 Insulin Human NPH 10 unit 10 unit BID@08,20 SC Last administered on 09/14/16 08:49; Admin Dose 10 UNIT; Start 09/11/16 at 20:00 Vancomycin HCl (Vancocin) 250 ml @ 125 mls/hr Q24H IVPB Last administered on 13:44; Admin Dose 125 MLS/HR; Start 09/14/16 at 13:00 Methylprednisolone Sodium Succinate (Solu-Medrol) 20 mg DAILY IV Last administered on 09/14/16 10:07; Admin Dose 20 MG; Start 09/14/16 at 09:00 WASHINGTON FERNANDO MD September 14, 2016 17:24
[2016-09-14 19:25] VITALS: BP 155/75; RESP 20
[2016-09-15] MEDS: LEVALBUTEROL (NEB) 0.63 MG/3 ML AMP HHN SCH ×4 (01:00→19:49)
[2016-09-15] MEDS: ACCU-CHEK XX SCH (02:14)
[2016-09-15] MEDS: SOD CHLORIDE 0.9% 1,000 ML IV SCH ×2 (05:09→12:26)
[2016-09-15] MEDS: MEROPENEM 500 MG/100 ML (PMX) 100 ML IVPB SCH ×3 (05:38→21:52)
[2016-09-15 06:05] LABS: ADD SCAN DIFF NO
[2016-09-15 06:12] LABS: BASOPHILS % 0.3 % (0.0-2.0); EOSINOPHILS # 0.3 10^3/ul (0.0-0.5); EOSINOPHILS % 3.5 % (0.0-7.0); HEMATOCRIT 37.8 % (42.0-52.0); HEMOGLOBIN 12.5 g/dl (14.0-18.0); LYMPHOCYTES # 1.8 10^3/ul (0.8-2.9); LYMPHOCYTES % 25.2 % (15.0-51.0); MEAN CORPUSCULAR HEMOGLOBIN 30.1 pg (29.0-33.0); MEAN CORPUSCULAR HGB CONC 33.1 g/dl (32.0-37.0); MEAN CORPUSCULAR VOLUME 91.1 fl (82.0-101.0); MONOCYTE # 0.6 10^3/ul (0.3-0.9); MONOCYTES % 8.1 % (0.0-11.0); NEUTROPHIL # 4.4 10^3/ul (1.6-7.5); NEUTROPHILS % 61.1 % (39.0-77.0); PLATELET COUNT 217 10^3/UL (140-415); RED BLOOD COUNT 4.15 10^6/ul (4.70-6.10); RED CELL DISTRIBUTION WIDTH 13.2 % (11.5-14.5); WHITE BLOOD COUNT 7.1 10^3/ul (4.8-10.8)
[2016-09-15 06:40] LABS: INR 1.04; PROTIME 13.6 Sec (12.2-14.2); PT RATIO 1.1
[2016-09-15 06:41] LABS: PARTIAL THROMBOPLASTIN TIME 36.5 Sec (25.0-35.0)
[2016-09-15 06:50] LABS: ALBUMIN 3.2 g/dl (3.3-4.9); BILIRUBIN,INDIRECT 0.1 mg/dl (0-1.1); BILIRUBIN,TOTAL 0.1 mg/dl (0.2-1.3); CALCIUM 9.2 mg/dl (8.4-10.2); CREATININE 0.73 mg/dl (0.61-1.24); TOTAL PROTEIN 6.4 g/dl (6.1-8.1)
[2016-09-15 06:51] LABS: MAGNESIUM 2.1 mg/dl (1.7-2.5); PHOSPHORUS 3.3 mg/dl (2.5-4.9)
[2016-09-15 07:32] VITALS: BP 144/70; RESP 20
[2016-09-15] MEDS: INSULIN ASPART [NOVOLOG] 3 ML PEN SC SCH ×4 (08:00→21:00)
[2016-09-15] MEDS: METHYLPREDNISOLONE 40 MG INJ IV SCH (08:10)
[2016-09-15] MEDS: INSULIN GLARGINE [LANtus] 3 ML PEN SC SCH (08:15)
[2016-09-15] MEDS: NPH, HUMAN INSULIN ISOPHANE 3ML VIAL SC SCH ×2 (08:15→20:00)
[2016-09-15] MEDS: POLYETHYLENE GLYCOL 17 GM PACKET PO SCH ×2 (09:13→21:52)
[2016-09-15] MEDS: CARBIDOPA/LEVODOPA (25/100) TAB PO SCH ×3 (09:13→21:52)
[2016-09-15] MEDS: FAMOTIDINE 20 MG INJ IV SCH ×2 (09:13→21:52)
[2016-09-15] MEDS: HEPARIN 5,000 UNIT/0.5 ML VIAL SC SCH ×2 (09:42→22:03)
[2016-09-15] MEDS: VANCOMYCIN 1 GM in NS 250 ML IVPB SCH (12:27)
--- NOTE | 2016-09-15 18:18 | CONS ---
Date/Time of Note Date/Time of Note DATE: 09/15/16 TIME: 18:17 Assessment/Plan Assessment/Plan Chief Complaint/Hosp Course SUBJECTIVE: No acute events. No fevers. Looks comfortable, at bedside MICROBIOLOGY: Sputum culture grew Pseudomonas aeruginosa and MRSA. Urine culture growing E. coli ESBL. ANTIMICROBIALS: Meropenem, Vanco PHYSICAL EXAMINATION: GENERAL: This is a fragile, elderly man who is in no distress. HEENT: Head atraumatic, normocephalic. Sclerae anicteric. Buccal mucosa dry. NECK: Supple, trachea midline. CHEST: Rise symmetrical. Breath sounds diminished to bases. HEART: S1, S2. ABDOMEN: Soft. Bowel sounds present. EXTREMITIES: Without cyanosis. ASSESSMENT: 1. Sepsis with acute on chronic encephalopathy. 2. Urinary tract infection with urine culture growing Escherichia coli extended -spectrum beta-lactamase. 3. Chronic obstructive pulmonary disease exacerbation with acute tracheobronchitis. Cultures growing Pseudomonas aeruginosa/MRSA. 4. Parkinson's dementia. 5. Diabetes. 6. History of cardiac stents. PLAN: Remains stable. Continue present care, antibiotics, anti-aspiration measures. DW pt/ Problems: Consultation Date/Type/Reason Admit Date/Time September 07, 2016 at 15:26 Type of Consultation: ID Exam/Review of Systems Vital Signs Vitals Vital Signs Date Time Temp Pulse Resp B/P Pulse Ox O2 Delivery O2 Flow Rate FiO2 09/15/16 13:52 89 16 97 Nasal Cannula 2.0 09/15/16 07:32 97.8 144/70 Intake and Output 09/14/16 09/14/16 09/15/16 15:00 23:00 07:00 Intake Total 2270 ml 1100 ml Output Total 1 ml Balance 2269 ml 1100 ml Results Result Diagram: 09/15/16 0502 09/15/16 0505 Results 24 hrs Laboratory Tests Test 09/14/16 20:27 09/15/16 01:59 09/15/16 05:02 09/15/16 05:05 Bedside Glucose 182 85 White Blood Count 7.1 Red Blood Count 4.15 L Hemoglobin 12.5 L Hematocrit 37.8 L Mean Corpuscular Volume 91.1 Mean Corpuscular Hemoglobin 30.1 Mean Corpuscular Hemoglobin Concent 33.1 Red Cell Distribution Width 13.2 Platelet Count 217 Mean Platelet Volume 9.0 Neutrophils % 61.1 Lymphocytes % 25.2 Monocytes % 8.1 Eosinophils % 3.5 Basophils % 0.3 Nucleated Red Blood Cells % 0.0 Neutrophils # 4.4 Lymphocytes # 1.8 Monocytes # 0.6 Eosinophils # 0.3 Basophils # 0.0 Nucleated Red Blood Cells # 0.0 Prothrombin Time 13.6 Prothrombin Time Ratio 1.1 INR International Normalized Ratio 1.04 Activated Partial Thromboplast Time 36.5 H Sodium Level 138 Potassium Level 4.0 Chloride Level 100 Carbon Dioxide Level 34 H Anion Gap 8 Blood Urea Nitrogen 19 Creatinine 0.73 Glucose Level 99 # Calcium Level 9.2 Phosphorus Level 3.3 Magnesium Level 2.1 Total Bilirubin 0.1 L Direct Bilirubin 0.00 Indirect Bilirubin 0.1 Aspartate Amino Transf (AST/SGOT) 22 Alanine Aminotransferase (ALT/SGPT) 20 Alkaline Phosphatase 65 Total Protein 6.4 Albumin 3.2 L Globulin 3.20 Albumin/Globulin Ratio 1.00 Test 09/15/16 07:59 09/15/16 12:15 09/15/16 17:08 Bedside Glucose 85 180 176 Medications Medications Current Medications Acetaminophen (Tylenol Tab) 650 mg Q6H PRN PO PAIN AND OR ELEVATED TEMP Last administered on 09/13/16 20:46; Admin Dose 650 MG; Start 09/07/16 at 04:00 Ondansetron HCl (Zofran Inj) 4 mg Q6H PRN IV NAUSEA AND/OR VOMITING; Start 03/16 at 05:00 Heparin Sodium (Porcine) 5000 unit 5,000 unit BID SC Last administered on 09:42; Admin Dose 5,000 UNIT; Start 09/07/16 at 09:00 Sodium Chloride (NS) 1,000 ml @ 40 mls/hr Q24H IV Last administered on 12:26; Admin Dose 40 MLS/HR; Start 09/07/16 at 05:00 Insulin Glargine (Lantus) 10 unit DAILY@08 SC Last administered on 09/15/16 08 :15; Admin Dose 10 UNIT; Start 09/07/16 at 08:00 Diagnostic Test (Pha) (Accu-Chek) 1 ea 02 XX Last administered on 09/15/16 02: 14; Admin Dose 1 EA; Start 09/08/16 at 02:00 Miscellaneous Information 1 ea NOTE XX ; Start 09/07/16 at 06:45 Glucose (Glutose) 15 gm Q15M PRN PO DECREASED GLUCOSE; Start 09/07/16 at 06:45 Glucose (Glutose) 22.5 gm Q15M PRN PO DECREASED GLUCOSE; Start 09/07/16 at 06: 45 Dextrose (D50w Syringe) 25 ml Q15M PRN IV DECREASED GLUCOSE; Start 09/07/16 at 06:45 Dextrose (D50w Syringe) 50 ml Q15M PRN IV DECREASED GLUCOSE; Start 09/07/16 at 06:45 Glucagon (Glucagen) 1 mg Q15M PRN IM DECREASED GLUCOSE; Start 09/07/16 at 06:45 Glucose (Glutose) 15 gm Q15M PRN BUCCAL DECREASED GLUCOSE; Start 09/07/16 at 06 :45 Carbidopa/Levodopa (Sinemet (25/ 100)) 2 tab TID PO Last administered on 12:16; Admin Dose 2 TAB; Start 09/08/16 at 13:00 Polyethylene Glycol (Miralax) 17 gm BID PO Last administered on 09/15/16 09:13 ; Admin Dose 17 GM; Start 09/11/16 at 21:00 Bisacodyl 10 mg 10 mg DAILY PRN PO CONSTIPATION Last administered on 09/11/16 17:18; Admin Dose 10 MG; Start 09/11/16 at 13:30 Meropenem (Merrem 500 Mg/ 100 ml (Pmx)) 100 ml @ 200 mls/hr Q8 IVPB Last administered on 09/15/16 14:57; Admin Dose 200 MLS/HR; Start 09/11/16 at 22:00 Famotidine (Pepcid Iv) 20 mg BID IV Last administered on 09/15/16 09:13; Admin Dose 20 MG; Start 09/11/16 at 21:00 Insulin Human NPH 10 unit 10 unit BID@08,20 SC Last administered on 09/15/16 08:15; Admin Dose 10 UNIT; Start 09/11/16 at 20:00 Vancomycin HCl (Vancocin) 250 ml @ 125 mls/hr Q24H IVPB Last administered on 12:27; Admin Dose 125 MLS/HR; Start 09/14/16 at 13:00 Miscellaneous Information (*Rx Drug Level Order Reminder*) VANCO TROUGH @ 1, 200 ON... ONCE ONCE XX ; Start 09/16/16 at 12:00; Stop 09/16/16 at 12:01 Prednisolone (Prelone (Ped)) 40 mg DAILY PO ; Start 09/16/16 at 09:00 SYLVAIN MENA NP September 15, 2016 18:18
[2016-09-15 20:04] VITALS: BP 158/68; RESP 18
--- NOTE | 2016-09-15 22:51 | PN ---
Date/Time of Note Date/Time of Note DATE: 09/15/16 TIME: 22:50 Assessment/Plan VTE Prophylaxis VTE Prophylaxis Intervention: SCD's Lines/Catheters IV Catheter Type (from Nrs): Peripheral IV Urinary Cath still in place: No Assessment/Plan Assessment/Plan 1. Acute encephalopathy due to UTI, PNA 2. Sepsis with acute on chronic encephalopathy. 2. Urinary tract infection with urine culture growing Escherichia coli extended -spectrum beta-lactamase. 3. Chronic obstructive pulmonary disease exacerbation with acute tracheobronchitis. Cultures growing Pseudomonas aeruginosa/MRSA. 4. Parkinson's dementia. 5. Diabetes. 6. History of CAD s/p Previous Stent placement Plan: Continue current care BP stable afebrile IV abx vanocmcycin and zosyn , ID following on I Vsolu medrol will switch to PO prednisone tomorrow PT evaluation and treatment will need SNF vs home health for d/c planning, not ready for d/c yet Subjective 24 Hr Interval Summary Free Text/Dictation remained stable, BP stable, pt is bedridden, did not get out of bed with PT Exam/Review of Systems Vital Signs Vitals Vital Signs Date Time Temp Pulse Resp B/P Pulse Ox O2 Delivery O2 Flow Rate FiO2 09/15/16 20:04 98.5 71 18 158/68 99 09/15/16 19:54 2.0 09/15/16 19:49 Nasal Cannula Intake and Output 09/14/16 09/14/16 09/15/16 15:00 23:00 07:00 Intake Total 2270 ml 1100 ml Output Total 1 ml Balance 2269 ml 1100 ml Exam GENERAL: This is a fragile, elderly man who is in no distress. HEENT: Head atraumatic, normocephalic. Sclerae anicteric. Buccal mucosa dry. NECK: Supple, trachea midline. CHEST: Rise symmetrical. Breath sounds diminished to bases. HEART: S1, S2. ABDOMEN: Soft. Bowel sounds present. EXTREMITIES: Without cyanosis. Results Result Diagram: 09/15/16 0502 09/15/16 0505 Results 24 hrs Laboratory Tests Test 09/15/16 01:59 09/15/16 05:02 09/15/16 05:05 09/15/16 07:59 Bedside Glucose 85 85 White Blood Count 7.1 Red Blood Count 4.15 L Hemoglobin 12.5 L Hematocrit 37.8 L Mean Corpuscular Volume 91.1 Mean Corpuscular Hemoglobin 30.1 Mean Corpuscular Hemoglobin Concent 33.1 Red Cell Distribution Width 13.2 Platelet Count 217 Mean Platelet Volume 9.0 Neutrophils % 61.1 Lymphocytes % 25.2 Monocytes % 8.1 Eosinophils % 3.5 Basophils % 0.3 Nucleated Red Blood Cells % 0.0 Neutrophils # 4.4 Lymphocytes # 1.8 Monocytes # 0.6 Eosinophils # 0.3 Basophils # 0.0 Nucleated Red Blood Cells # 0.0 Prothrombin Time 13.6 Prothrombin Time Ratio 1.1 INR International Normalized Ratio 1.04 Activated Partial Thromboplast Time 36.5 H Sodium Level 138 Potassium Level 4.0 Chloride Level 100 Carbon Dioxide Level 34 H Anion Gap 8 Blood Urea Nitrogen 19 Creatinine 0.73 Glucose Level 99 # Calcium Level 9.2 Phosphorus Level 3.3 Magnesium Level 2.1 Total Bilirubin 0.1 L Direct Bilirubin 0.00 Indirect Bilirubin 0.1 Aspartate Amino Transf (AST/SGOT) 22 Alanine Aminotransferase (ALT/SGPT) 20 Alkaline Phosphatase 65 Total Protein 6.4 Albumin 3.2 L Globulin 3.20 Albumin/Globulin Ratio 1.00 Test 09/15/16 12:15 09/15/16 17:08 09/15/16 20:57 Bedside Glucose 180 176 169 Medications Medications Current Medications Acetaminophen (Tylenol Tab) 650 mg Q6H PRN PO PAIN AND OR ELEVATED TEMP Last administered on 09/13/16 20:46; Admin Dose 650 MG; Start 09/07/16 at 04:00 Ondansetron HCl (Zofran Inj) 4 mg Q6H PRN IV NAUSEA AND/OR VOMITING; Start 03/16 at 05:00 Heparin Sodium (Porcine) 5000 unit 5,000 unit BID SC Last administered on 22:03; Admin Dose 5,000 UNIT; Start 09/07/16 at 09:00 Sodium Chloride (NS) 1,000 ml @ 40 mls/hr Q24H IV Last administered on 12:26; Admin Dose 40 MLS/HR; Start 09/07/16 at 05:00 Insulin Glargine (Lantus) 10 unit DAILY@08 SC Last administered on 09/15/16 08 :15; Admin Dose 10 UNIT; Start 09/07/16 at 08:00 Diagnostic Test (Pha) (Accu-Chek) 1 ea 02 XX Last administered on 09/15/16 02: 14; Admin Dose 1 EA; Start 09/08/16 at 02:00 Miscellaneous Information 1 ea NOTE XX ; Start 09/07/16 at 06:45 Glucose (Glutose) 15 gm Q15M PRN PO DECREASED GLUCOSE; Start 09/07/16 at 06:45 Glucose (Glutose) 22.5 gm Q15M PRN PO DECREASED GLUCOSE; Start 09/07/16 at 06: 45 Dextrose (D50w Syringe) 25 ml Q15M PRN IV DECREASED GLUCOSE; Start 09/07/16 at 06:45 Dextrose (D50w Syringe) 50 ml Q15M PRN IV DECREASED GLUCOSE; Start 09/07/16 at 06:45 Glucagon (Glucagen) 1 mg Q15M PRN IM DECREASED GLUCOSE; Start 09/07/16 at 06:45 Glucose (Glutose) 15 gm Q15M PRN BUCCAL DECREASED GLUCOSE; Start 09/07/16 at 06 :45 Carbidopa/Levodopa (Sinemet (25/ 100)) 2 tab TID PO Last administered on 21:52; Admin Dose 2 TAB; Start 09/08/16 at 13:00 Polyethylene Glycol (Miralax) 17 gm BID PO Last administered on 09/15/16 21:52 ; Admin Dose 17 GM; Start 09/11/16 at 21:00 Bisacodyl 10 mg 10 mg DAILY PRN PO CONSTIPATION Last administered on 09/11/16 17:18; Admin Dose 10 MG; Start 09/11/16 at 13:30 Meropenem (Merrem 500 Mg/ 100 ml (Pmx)) 100 ml @ 200 mls/hr Q8 IVPB Last administered on 09/15/16 21:52; Admin Dose 200 MLS/HR; Start 09/11/16 at 22:00 Famotidine (Pepcid Iv) 20 mg BID IV Last administered on 09/15/16 21:52; Admin Dose 20 MG; Start 09/11/16 at 21:00 Insulin Human NPH 10 unit 10 unit BID@08,20 SC Last administered on 09/15/16 08:15; Admin Dose 10 UNIT; Start 09/11/16 at 20:00 Vancomycin HCl (Vancocin) 250 ml @ 125 mls/hr Q24H IVPB Last administered on t 12:27; Admin Dose 125 MLS/HR; Start 09/14/16 at 13:00 Miscellaneous Information (*Rx Drug Level Order Reminder*) VANCO TROUGH @ 1, 200 ON... ONCE ONCE XX ; Start 09/16/16 at 12:00; Stop 09/16/16 at 12:01 Prednisolone (Prelone (Ped)) 40 mg DAILY PO ; Start 09/16/16 at 09:00 WASHINGTON FERNANDO MD September 15, 2016 22:51
[2016-09-16] MEDS: ACCU-CHEK XX SCH (01:10)
[2016-09-16] MEDS: LEVALBUTEROL (NEB) 0.63 MG/3 ML AMP HHN SCH ×4 (02:11→20:20)
[2016-09-16] MEDS: MEROPENEM 500 MG/100 ML (PMX) 100 ML IVPB SCH ×3 (05:35→21:48)
[2016-09-16] MEDS: SOD CHLORIDE 0.9% 1,000 ML IV SCH (05:35)
[2016-09-16 07:21] VITALS: BP 164/84; RESP 18
[2016-09-16 07:26] LABS: CREATININE 0.61 mg/dl (0.61-1.24)
[2016-09-16] MEDS: ACETAMINOPHEN 325 MG TAB PO PRN (07:51)
[2016-09-16] MEDS: INSULIN ASPART [NOVOLOG] 3 ML PEN SC SCH ×4 (08:15→21:08)
[2016-09-16] MEDS: INSULIN GLARGINE [LANtus] 3 ML PEN SC SCH (08:36)
[2016-09-16] MEDS: NPH, HUMAN INSULIN ISOPHANE 3ML VIAL SC SCH ×2 (08:36→19:44)
[2016-09-16] MEDS: FAMOTIDINE 20 MG INJ IV SCH ×2 (08:44→21:38)
[2016-09-16] MEDS: CARBIDOPA/LEVODOPA (25/100) TAB PO SCH ×3 (08:44→21:39)
[2016-09-16] MEDS: POLYETHYLENE GLYCOL 17 GM PACKET PO SCH ×2 (08:44→21:39)
[2016-09-16] MEDS: predniSOLONE (3 MG/ML PO SYG) PO SCH (08:44)
[2016-09-16] MEDS: HEPARIN 5,000 UNIT/0.5 ML VIAL SC SCH ×2 (08:52→21:48)
[2016-09-16] MEDS ORDERED: predniSOLONE (3 MG/ML PO SYG) PO SCH (09:00)
[2016-09-16] MEDS ORDERED: predniSOLONE (3 MG/ML) CUP PO SCH (09:00)
[2016-09-16 10:00] VITALS: BP 142/71; PULSE 89
--- NOTE | 2016-09-16 12:46 | PN ---
Date/Time of Note Date/Time of Note DATE: 09/16/16 TIME: 12:45 Assessment/Plan VTE Prophylaxis VTE Prophylaxis Intervention: SCD's Lines/Catheters IV Catheter Type (from Nrsg): Peripheral IV Urinary Cath still in place: No Assessment/Plan Assessment/Plan 1. Acute encephalopathy due to UTI, PNA 2. Sepsis with acute on chronic encephalopathy. 2. Urinary tract infection with urine culture growing Escherichia coli extended -spectrum beta-lactamase. 3. Chronic obstructive pulmonary disease exacerbation with acute tracheobronchitis. Cultures growing Pseudomonas aeruginosa/MRSA. 4. Parkinson's dementia. 5. Diabetes. 6. History of CAD s/p Previous Stent placement Plan: Continue current care BP stable afebrile IV abx vanocmcycin and zosyn , ID following change to PO prednisone today PT evaluation and treatment will need SNF vs home health for d/c planning, not ready for d/c yet Subjective 24 Hr Interval Summary Free Text/Dictation less SOB but bedridden , no acute events Exam/Review of Systems Vital Signs Vitals Vital Signs Date Time Temp Pulse Resp B/P Pulse Ox O2 Delivery O2 Flow Rate FiO2 09/16/16 10:00 89 142/71 09/16/16 07:30 21 99 Nasal Cannula 2.0 09/16/16 07:21 97.6 Intake and Output 09/15/16 09/15/16 09/16/16 15:00 23:00 07:00 Intake Total 1590 ml 1000 ml Balance 1590 ml 1000 ml Exam GENERAL: This is a fragile, elderly man who is in no distress. HEENT: Head atraumatic, normocephalic. Sclerae anicteric. Buccal mucosa dry. NECK: Supple, trachea midline. CHEST: Rise symmetrical. Breath sounds diminished to bases. HEART: S1, S2. ABDOMEN: Soft. Bowel sounds present. EXTREMITIES: Without cyanosis. Results Result Diagram: 09/15/16 0502 09/16/16 0521 Results 24 hrs Laboratory Tests Test 09/15/16 17:08 09/15/16 20:57 09/16/16 05:21 09/16/16 08:22 Bedside Glucose 176 169 96 Blood Urea Nitrogen 19 Creatinine 0.61 Test 09/16/16 12:00 Vancomycin Level Trough 5.5 L Medications Medications Current Medications Acetaminophen (Tylenol Tab) 650 mg Q6H PRN PO PAIN AND OR ELEVATED TEMP Last administered on 09/16/16 07:51; Admin Dose 650 MG; Start 09/07/16 at 04:00 Ondansetron HCl (Zofran Inj) 4 mg Q6H PRN IV NAUSEA AND/OR VOMITING; Start 03/16 at 05:00 Heparin Sodium (Porcine) 5000 unit 5,000 unit BID SC Last administered on 08:52; Admin Dose 5,000 UNIT; Start 09/07/16 at 09:00 Sodium Chloride (NS) 1,000 ml @ 40 mls/hr Q24H IV Last administered on 05:35; Admin Dose 40 MLS/HR; Start 09/07/16 at 05:00 Insulin Glargine (Lantus) 10 unit DAILY@08 SC Last administered on 09/16/16 08 :36; Admin Dose 10 UNIT; Start 09/07/16 at 08:00 Diagnostic Test (Pha) (Accu-Chek) 1 ea 02 XX Last administered on 09/15/16 02: 14; Admin Dose 1 EA; Start 09/08/16 at 02:00 Miscellaneous Information 1 ea NOTE XX ; Start 09/07/16 at 06:45 Glucose (Glutose) 15 gm Q15M PRN PO DECREASED GLUCOSE; Start 09/07/16 at 06:45 Glucose (Glutose) 22.5 gm Q15M PRN PO DECREASED GLUCOSE; Start 09/07/16 at 06: 45 Dextrose (D50w Syringe) 25 ml Q15M PRN IV DECREASED GLUCOSE; Start 09/07/16 at 06:45 Dextrose (D50w Syringe) 50 ml Q15M PRN IV DECREASED GLUCOSE; Start 09/07/16 at 06:45 Glucagon (Glucagen) 1 mg Q15M PRN IM DECREASED GLUCOSE; Start 09/07/16 at 06:45 Glucose (Glutose) 15 gm Q15M PRN BUCCAL DECREASED GLUCOSE; Start 09/07/16 at 06 :45 Carbidopa/Levodopa (Sinemet (25/ 100)) 2 tab TID PO Last administered on 12:28; Admin Dose 2 TAB; Start 09/08/16 at 13:00 Polyethylene Glycol (Miralax) 17 gm BID PO Last administered on 09/16/16 08:44 ; Admin Dose 17 GM; Start 09/11/16 at 21:00 Bisacodyl 10 mg 10 mg DAILY PRN PO CONSTIPATION Last administered on 09/11/16 17:18; Admin Dose 10 MG; Start 09/11/16 at 13:30 Meropenem (Merrem 500 Mg/ 100 ml (Pmx)) 100 ml @ 200 mls/hr Q8 IVPB Last administered on 09/16/16 05:35; Admin Dose 200 MLS/HR; Start 09/11/16 at 22:00 Famotidine (Pepcid Iv) 20 mg BID IV Last administered on 09/16/16 08:44; Admin Dose 20 MG; Start 09/11/16 at 21:00 Insulin Human NPH 10 unit 10 unit BID@08,20 SC Last administered on 09/16/16 08:36; Admin Dose 10 UNIT; Start 09/11/16 at 20:00 Vancomycin HCl (Vancocin) 250 ml @ 125 mls/hr Q24H IVPB Last administered on 12:27; Admin Dose 125 MLS/HR; Start 09/14/16 at 13:00 Prednisolone (Prelone (Ped)) 40 mg DAILY PO Last administered on 09/16/16 08: 44; Admin Dose 40 MG; Start 09/16/16 at 09:00 WASHINGTON FERNANDO MD September 16, 2016 12:46
[2016-09-16] MEDS: VANCOMYCIN 1 GM in NS 250 ML IVPB SCH (13:23)
[2016-09-16] MEDS ORDERED: LEVALBUTEROL (NEB) 1.25 MG/0.5 ML AMP ONE (15:00)
--- NOTE | 2016-09-16 17:13 | CONS ---
Date/Time of Note Date/Time of Note DATE: 09/16/16 TIME: 17:13 Assessment/Plan Assessment/Plan Chief Complaint/Hosp Course ID PROGRESS NOTE ABX DAY # Vanco IV #4 + Merrem #6 24H INTERVAL SUMMARY * Awake, calm, VSS, NAD, no fever * Family present -- no new issues -- he was coughing earlier not now PHYSICAL EXAMINATION: GENERAL: VSS, NAD HEENT: Unremarkable NECK: Trach-> midline CHEST: Equal chest rise bilaterally, without dyspnea on observation HEART: Pulse RRR ABDOMEN: Soft EXTREMITIES: Warm, SKIN: Warm, dry ID ASSESSMENT: 89 yo M w/ admitted with: 1. Resolving sepsis with acute on chronic encephalopathy. 2. Urinary tract infection with urine culture growing Escherichia coli extended -spectrum beta-lactamase. 3. Chronic obstructive pulmonary disease exacerbation with acute tracheobronchitis. Cultures growing Pseudomonas aeruginosa/MRSA. 4. Parkinson's dementia. 5. Diabetes. 6. History of cardiac stents. ABX ALLERGIES: None to ABX CURRENT ABX: # Vanco IV #4 + Merrem #6 ID RECOMMENDATIONS: 1. Continue current ABX 10 days for ESBL coverage 2. ASPIRATION precautions . Problems: Consultation Date/Type/Reason Admit Date/Time September 07, 2016 at 15:26 Initial Consult Date Type of Consultation: ID Exam/Review of Systems Vital Signs Vitals Vital Signs Date Time Temp Pulse Resp B/P Pulse Ox O2 Delivery O2 Flow Rate FiO2 09/16/16 15:14 2.0 09/16/16 15:10 78 15 100 Nasal Cannula 09/16/16 10:00 142/71 09/16/16 07:21 97.6 Intake and Output 09/15/16 09/15/16 09/16/16 15:00 23:00 07:00 Intake Total 1590 ml 1000 ml Balance 1590 ml 1000 ml Results Result Diagram: 09/15/16 0502 09/16/16 0521 Results 24 hrs Laboratory Tests Test 09/15/16 20:57 09/16/16 05:21 09/16/16 08:22 09/16/16 12:00 Bedside Glucose 169 96 Blood Urea Nitrogen 19 Creatinine 0.61 Vancomycin Level Trough 5.5 L Test 09/16/16 12:24 Bedside Glucose 176 Medications Medications Current Medications Acetaminophen (Tylenol Tab) 650 mg Q6H PRN PO PAIN AND OR ELEVATED TEMP Last administered on 09/16/16 07:51; Admin Dose 650 MG; Start 09/07/16 at 04:00 Ondansetron HCl (Zofran Inj) 4 mg Q6H PRN IV NAUSEA AND/OR VOMITING; Start 03/16 at 05:00 Heparin Sodium (Porcine) 5000 unit 5,000 unit BID SC Last administered on 08:52; Admin Dose 5,000 UNIT; Start 09/07/16 at 09:00 Sodium Chloride (NS) 1,000 ml @ 40 mls/hr Q24H IV Last administered on 05:35; Admin Dose 40 MLS/HR; Start 09/07/16 at 05:00 Insulin Glargine (Lantus) 10 unit DAILY@08 SC Last administered on 09/16/16 08 :36; Admin Dose 10 UNIT; Start 09/07/16 at 08:00 Diagnostic Test (Pha) (Accu-Chek) 1 ea 02 XX Last administered on 09/15/16 02: 14; Admin Dose 1 EA; Start 09/08/16 at 02:00 Miscellaneous Information 1 ea NOTE XX ; Start 09/07/16 at 06:45 Glucose (Glutose) 15 gm Q15M PRN PO DECREASED GLUCOSE; Start 09/07/16 at 06:45 Glucose (Glutose) 22.5 gm Q15M PRN PO DECREASED GLUCOSE; Start 09/07/16 at 06: 45 Dextrose (D50w Syringe) 25 ml Q15M PRN IV DECREASED GLUCOSE; Start 09/07/16 at 06:45 Dextrose (D50w Syringe) 50 ml Q15M PRN IV DECREASED GLUCOSE; Start 09/07/16 at 06:45 Glucagon (Glucagen) 1 mg Q15M PRN IM DECREASED GLUCOSE; Start 09/07/16 at 06:45 Glucose (Glutose) 15 gm Q15M PRN BUCCAL DECREASED GLUCOSE; Start 09/07/16 at 06 :45 Carbidopa/Levodopa (Sinemet (25/ 100)) 2 tab TID PO Last administered on 12:28; Admin Dose 2 TAB; Start 09/08/16 at 13:00 Polyethylene Glycol (Miralax) 17 gm BID PO Last administered on 09/16/16 08:44 ; Admin Dose 17 GM; Start 09/11/16 at 21:00 Bisacodyl 10 mg 10 mg DAILY PRN PO CONSTIPATION Last administered on 09/11/16 17:18; Admin Dose 10 MG; Start 09/11/16 at 13:30 Meropenem (Merrem 500 Mg/ 100 ml (Pmx)) 100 ml @ 200 mls/hr Q8 IVPB Last administered on 09/16/16 15:56; Admin Dose 200 MLS/HR; Start 09/11/16 at 22:00 Famotidine (Pepcid Iv) 20 mg BID IV Last administered on 09/16/16 08:44; Admin Dose 20 MG; Start 09/11/16 at 21:00 Insulin Human NPH (Humulin N) 10 unit BID@08,20 SC Last administered on 08:36; Admin Dose 10 UNIT; Start 09/11/16 at 20:00 Prednisolone 40 mg 40 mg DAILY PO Last administered on 09/16/16 08:44; Admin Dose 40 MG; Start 09/16/16 at 09:00 Vancomycin HCl/ Sodium Chloride (Vancocin/NS) 150 ml @ 75 mls/hr Q12H IVPB ; Start 09/17/16 at 01:00 RONI BROWNLEE NP September 16, 2016 17:13
[2016-09-16] MEDS: BISACODYL (EC) 5 MG TAB PO PRN (18:28)
[2016-09-16 20:10] VITALS: BP 169/82; RESP 20
[2016-09-16] MEDS: IPRATROPIUM (NEB) 0.5 MG/2.5 ML AMP HHN PRN (20:20)
[2016-09-16 22:00] VITALS: BP 173/70; PULSE 108
[2016-09-16 22:30] VITALS: BP 180/88; PULSE 110
[2016-09-16] MEDS ORDERED: hydrALAzine 20 MG INJ IV ONE (23:00)
[2016-09-17] VITALS: BP 149/76; PULSE 123
[2016-09-17] MEDS: VANCOMYCIN 750 MG in SOD CHLORIDE 0.9% 150 ML IVPB SCH ×2 (00:26→13:13)
[2016-09-17 01:00] VITALS: BP 119/69; PULSE 103
[2016-09-17] MEDS: LEVALBUTEROL (NEB) 0.63 MG/3 ML AMP HHN SCH ×4 (01:03→19:16)
[2016-09-17] MEDS: ACCU-CHEK XX SCH (01:41)
[2016-09-17] MEDS: SOD CHLORIDE 0.9% 1,000 ML IV SCH (05:06)
[2016-09-17] MEDS: MEROPENEM 500 MG/100 ML (PMX) 100 ML IVPB SCH ×3 (05:29→21:56)
[2016-09-17 07:23] VITALS: BP 150/73; RESP 18
[2016-09-17] MEDS: INSULIN ASPART [NOVOLOG] 3 ML PEN SC SCH ×4 (08:04→20:38)
[2016-09-17] MEDS: NPH, HUMAN INSULIN ISOPHANE 3ML VIAL SC SCH ×2 (08:15→20:40)
[2016-09-17] MEDS: INSULIN GLARGINE [LANtus] 3 ML PEN SC SCH (08:15)
[2016-09-17] MEDS: FAMOTIDINE 20 MG INJ IV SCH (08:47)
[2016-09-17] MEDS: predniSOLONE (3 MG/ML PO SYG) PO SCH (08:47)
[2016-09-17] MEDS: CARBIDOPA/LEVODOPA (25/100) TAB PO SCH ×3 (08:48→20:39)
[2016-09-17] MEDS: ACETAMINOPHEN 325 MG TAB PO PRN (08:48)
[2016-09-17] MEDS: POLYETHYLENE GLYCOL 17 GM PACKET PO SCH ×2 (09:30→20:39)
[2016-09-17] MEDS: HEPARIN 5,000 UNIT/0.5 ML VIAL SC SCH ×2 (09:32→20:41)
--- NOTE | 2016-09-17 15:40 | CONS ---
Date/Time of Note Date/Time of Note DATE: 09/17/16 TIME: 15:30 Assessment/Plan Assessment/Plan Chief Complaint/Hosp Course ID PROGRESS NOTE ABX DAY # Vanco IV #5 + Merrem #7 24H INTERVAL SUMMARY * Today he is more restless with worried look on his face, he wants to hold my hand * No cough, no wheeze, mild tachypnea on supplemental O2 via NC PHYSICAL EXAMINATION: GENERAL: VSS, NAD HEENT: Unremarkable NECK: Trach-> midline CHEST: Equal chest rise bilaterally, without dyspnea on observation HEART: Pulse RRR ABDOMEN: Soft EXTREMITIES: Warm, SKIN: Warm, dry ID ASSESSMENT: 89 yo M w/ admitted with: 1. Resolving sepsis with acute on chronic encephalopathy. 2. Urinary tract infection with urine culture growing Escherichia coli extended -spectrum beta-lactamase. 3. Chronic obstructive pulmonary disease exacerbation with acute tracheobronchitis. * Cultures growing Pseudomonas aeruginosa/MRSA. 4. Parkinson's dementia. 5. Diabetes. 6. History of cardiac stents. ABX ALLERGIES: None to ABX CURRENT ABX: # Vanco IV #5 + Merrem #7 ID RECOMMENDATIONS: 1. Continue current ABX 10 days for ESBL coverage 2. Repeat CXR today -- 3. ASPIRATION precautions . Problems: Consultation Date/Type/Reason Admit Date/Time September 07, 2016 at 15:26 Type of Consultation: ID Exam/Review of Systems Vital Signs Vitals Vital Signs Date Time Temp Pulse Resp B/P Pulse Ox O2 Delivery O2 Flow Rate FiO2 09/17/16 14:00 95 18 97 Nasal Cannula 2.0 09/17/16 07:23 97.8 150/73 Intake and Output 09/16/16 09/16/16 09/17/16 15:00 23:00 07:00 Intake Total 750 ml 770 ml Balance 750 ml 770 ml Results Result Diagram: 09/15/16 0502 09/16/16 0521 Results 24 hrs Laboratory Tests Test 09/16/16 17:38 09/16/16 21:04 09/17/16 01:35 09/17/16 08:02 Bedside Glucose 199 211 99 101 Test 09/17/16 12:05 Bedside Glucose 92 Medications Medications Current Medications Acetaminophen (Tylenol Tab) 650 mg Q6H PRN PO PAIN AND OR ELEVATED TEMP Last administered on 09/17/16t 08:48; Admin Dose 650 MG; Start 09/07/16 at 04:00 Ondansetron HCl (Zofran Inj) 4 mg Q6H PRN IV NAUSEA AND/OR VOMITING; Start 03/16 at 05:00 Heparin Sodium (Porcine) 5000 unit 5,000 unit BID SC Last administered on 09:32; Admin Dose 5,000 UNIT; Start 09/07/16 at 09:00 Sodium Chloride (NS) 1,000 ml @ 40 mls/hr Q24H IV Last administered on 05:35; Admin Dose 40 MLS/HR; Start 09/07/16 at 05:00 Insulin Glargine (Lantus) 10 unit DAILY@08 SC Last administered on 09/17/16 08 :15; Admin Dose 10 UNIT; Start 09/07/16 at 08:00 Diagnostic Test (Pha) (Accu-Chek) 1 ea 02 XX Last administered on 09/17/16 01: 41; Admin Dose 1 EA; Start 09/08/16 at 02:00 Miscellaneous Information 1 ea NOTE XX ; Start 09/07/16 at 06:45 Glucose (Glutose) 15 gm Q15M PRN PO DECREASED GLUCOSE; Start 09/07/16 at 06:45 Glucose (Glutose) 22.5 gm Q15M PRN PO DECREASED GLUCOSE; Start 09/07/16 at 06: 45 Dextrose (D50w Syringe) 25 ml Q15M PRN IV DECREASED GLUCOSE; Start 09/07/16 at 06:45 Dextrose (D50w Syringe) 50 ml Q15M PRN IV DECREASED GLUCOSE; Start 09/07/16 at 06:45 Glucagon (Glucagen) 1 mg Q15M PRN IM DECREASED GLUCOSE; Start 09/07/16 at 06:45 Glucose (Glutose) 15 gm Q15M PRN BUCCAL DECREASED GLUCOSE; Start 09/07/16 at 06 :45 Carbidopa/Levodopa (Sinemet (25/ 100)) 2 tab TID PO Last administered on 13:13; Admin Dose 2 TAB; Start 09/08/16 at 13:00 Polyethylene Glycol (Miralax) 17 gm BID PO Last administered on 09/17/16 09:30 ; Admin Dose 17 GM; Start 09/11/16 at 21:00 Bisacodyl 10 mg 10 mg DAILY PRN PO CONSTIPATION Last administered on 09/16/16 18:28; Admin Dose 10 MG; Start 09/11/16 at 13:30 Meropenem (Merrem 500 Mg/ 100 ml (Pmx)) 100 ml @ 200 mls/hr Q8 IVPB Last administered on 09/17/16 05:29; Admin Dose 200 MLS/HR; Start 09/11/16 at 22:00 Famotidine (Pepcid Iv) 20 mg BID IV Last administered on 09/17/16 08:47; Admin Dose 20 MG; Start 09/11/16 at 21:00 Insulin Human NPH (Humulin N) 10 unit BID@08,20 SC Last administered on 08:15; Admin Dose 10 UNIT; Start 09/11/16 at 20:00 Prednisolone 40 mg 40 mg DAILY PO Last administered on 09/17/16 08:47; Admin Dose 40 MG; Start 09/16/16 at 09:00 Vancomycin HCl/ Sodium Chloride (Vancocin/NS) 150 ml @ 75 mls/hr Q12H IVPB Last administered on 09/17/16 13:13; Admin Dose 75 MLS/HR; Start 09/17/16 at 01 :00 Miscellaneous Information (*Rx Drug Level Order Reminder*) 1 ONCE ONCE XX ; Start 09/18/16 at 12:00; Stop 09/18/16 at 12:01 RONI BROWNLEE NP September 17, 2016 15:39
--- NOTE | 2016-09-17 15:55 | PN ---
Date/Time of Note Date/Time of Note DATE: 09/17/16 TIME: 15:49 Assessment/Plan VTE Prophylaxis VTE Prophylaxis Intervention: SCD's Lines/Catheters IV Catheter Type (from Nrsg): Peripheral IV Urinary Cath still in place: No Assessment/Plan Assessment/Plan 1. Acute encephalopathy due to UTI, PNA 2. Sepsis with acute on chronic encephalopathy. due to UTI + PNA 3. PNA with sputum cx growing Pseudomonas aeruginosa/MRSA. 4. Urinary tract infection with urine culture growing Escherichia coli extended- spectrum beta-lactamase. 5. Chronic obstructive pulmonary disease exacerbation with acute tracheobronchitis. Cultures growing Pseudomonas aeruginosa/MRSA. 6. Parkinson's dementia. 7. Diabetes. 8. History of CAD s/p Previous Stent placement Plan: IV abx vanocmcycin and zosyn , ID following d/c IV fluids SCD for DVT prophylaxis PT evaluation and treatment will need SNF vs home health for d/c planning, not ready for d/c yet Subjective 24 Hr Interval Summary Free Text/Dictation more agitated and restless Exam/Review of Systems Vital Signs Vitals Vital Signs Date Time Temp Pulse Resp B/P Pulse Ox O2 Delivery O2 Flow Rate FiO2 09/17/16 14:00 95 18 97 Nasal Cannula 2.0 09/17/16 07:23 97.8 150/73 Intake and Output 09/16/16 09/16/16 09/17/16 15:00 23:00 07:00 Intake Total 750 ml 770 ml Balance 750 ml 770 ml Results Result Diagram: 09/15/16 0502 09/16/16 0521 Results 24 hrs Laboratory Tests Test 09/16/16 17:38 09/16/16 21:04 09/17/16 01:35 09/17/16 08:02 Bedside Glucose 199 211 99 101 Test 09/17/16 12:05 Bedside Glucose 92 Medications Medications Current Medications Acetaminophen (Tylenol Tab) 650 mg Q6H PRN PO PAIN AND OR ELEVATED TEMP Last administered on 09/17/16 08:48; Admin Dose 650 MG; Start 09/07/16 at 04:00 Ondansetron HCl (Zofran Inj) 4 mg Q6H PRN IV NAUSEA AND/OR VOMITING; Start 03/16 at 05:00 Heparin Sodium (Porcine) 5000 unit 5,000 unit BID SC Last administered on 5/21/ 17at 09:32; Admin Dose 5,000 UNIT; Start 09/07/16 at 09:00 Sodium Chloride (NS) 1,000 ml @ 40 mls/hr Q24H IV Last administered on 05:35; Admin Dose 40 MLS/HR; Start 09/07/16 at 05:00 Insulin Glargine (Lantus) 10 unit DAILY@08 SC Last administered on 09/17/16 08 :15; Admin Dose 10 UNIT; Start 09/07/16 at 08:00 Diagnostic Test (Pha) (Accu-Chek) 1 ea 02 XX Last administered on 09/17/16 01: 41; Admin Dose 1 EA; Start 09/08/16 at 02:00 Miscellaneous Information 1 ea NOTE XX ; Start 09/07/16 at 06:45 Glucose (Glutose) 15 gm Q15M PRN PO DECREASED GLUCOSE; Start 09/07/16 at 06:45 Glucose (Glutose) 22.5 gm Q15M PRN PO DECREASED GLUCOSE; Start 09/07/16 at 06: 45 Dextrose (D50w Syringe) 25 ml Q15M PRN IV DECREASED GLUCOSE; Start 09/07/16 at 06:45 Dextrose (D50w Syringe) 50 ml Q15M PRN IV DECREASED GLUCOSE; Start 09/07/16 at 06:45 Glucagon (Glucagen) 1 mg Q15M PRN IM DECREASED GLUCOSE; Start 09/07/16 at 06:45 Glucose (Glutose) 15 gm Q15M PRN BUCCAL DECREASED GLUCOSE; Start 09/07/16 at 06 :45 Carbidopa/Levodopa (Sinemet (25/ 100)) 2 tab TID PO Last administered on 13:13; Admin Dose 2 TAB; Start 09/08/16 at 13:00 Polyethylene Glycol (Miralax) 17 gm BID PO Last administered on 09/17/16 09:30 ; Admin Dose 17 GM; Start 09/11/16 at 21:00 Bisacodyl 10 mg 10 mg DAILY PRN PO CONSTIPATION Last administered on 09/16/16 18:28; Admin Dose 10 MG; Start 09/11/16 at 13:30 Meropenem (Merrem 500 Mg/ 100 ml (Pmx)) 100 ml @ 200 mls/hr Q8 IVPB Last administered on 09/17/16 05:29; Admin Dose 200 MLS/HR; Start 09/11/16 at 22:00 Insulin Human NPH (Humulin N) 10 unit BID@08,20 SC Last administered on 08:15; Admin Dose 10 UNIT; Start 09/11/16 at 20:00 Prednisolone 40 mg 40 mg DAILY PO Last administered on 09/17/16 08:47; Admin Dose 40 MG; Start 09/16/16 at 09:00 Vancomycin HCl/ Sodium Chloride (Vancocin/NS) 150 ml @ 75 mls/hr Q12H IVPB Last administered on 09/17/16 13:13; Admin Dose 75 MLS/HR; Start 09/17/16 at 01 :00 Miscellaneous Information (*Rx Drug Level Order Reminder*) 1 ONCE ONCE XX ; Start 09/18/16 at 12:00; Stop 09/18/16 at 12:01 Famotidine (Pepcid) 20 mg BID PO ; Start 09/17/16 at 21:00 WASHINGTON FERNANDO MD September 17, 2016 15:55
[2016-09-17 20:03] VITALS: BP 186/91; RESP 20
[2016-09-17] MEDS: FAMOTIDINE 20 MG TAB PO SCH (20:39)
[2016-09-18] MEDS: VANCOMYCIN 750 MG in SOD CHLORIDE 0.9% 150 ML IVPB SCH ×2 (00:20→13:31)
[2016-09-18] MEDS: ACCU-CHEK XX SCH (02:00)
[2016-09-18] MEDS: LEVALBUTEROL (NEB) 0.63 MG/3 ML AMP HHN SCH ×4 (02:32→19:42)
[2016-09-18] MEDS: MEROPENEM 500 MG/100 ML (PMX) 100 ML IVPB SCH ×3 (05:07→21:20)
[2016-09-18 05:54] LABS: ADD SCAN DIFF NO
[2016-09-18 05:57] LABS: BASOPHILS % 0.2 % (0.0-2.0); EOSINOPHILS # 0.1 10^3/ul (0.0-0.5); EOSINOPHILS % 1.4 % (0.0-7.0); HEMOGLOBIN 12.7 g/dl (14.0-18.0); LYMPHOCYTES % 29.5 % (15.0-51.0); MEAN CORPUSCULAR HEMOGLOBIN 29.5 pg (29.0-33.0); MEAN CORPUSCULAR HGB CONC 32.6 g/dl (32.0-37.0); MEAN CORPUSCULAR VOLUME 90.7 fl (82.0-101.0); MEAN PLATELET VOLUME 9.1 fl (7.4-10.4); MONOCYTE # 0.6 10^3/ul (0.3-0.9); MONOCYTES % 6.2 % (0.0-11.0); NEUTROPHIL # 6.4 10^3/ul (1.6-7.5); NEUTROPHILS % 62.1 % (39.0-77.0); PLATELET COUNT 214 10^3/UL (140-415); RED CELL DISTRIBUTION WIDTH 13.7 % (11.5-14.5); WHITE BLOOD COUNT 10.3 10^3/ul (4.8-10.8)
[2016-09-18 06:12] LABS: INR 1.07; PROTIME 13.9 Sec (12.2-14.2); PT RATIO 1.1
[2016-09-18 06:13] LABS: PARTIAL THROMBOPLASTIN TIME 28.2 Sec (25.0-35.0)
[2016-09-18 06:28] LABS: ALBUMIN 3.5 g/dl (3.3-4.9)
[2016-09-18 06:31] LABS: ALBUMIN/GLOBULIN RATIO 0.94; BILIRUBIN,INDIRECT 0.4 mg/dl (0-1.1); BILIRUBIN,TOTAL 0.4 mg/dl (0.2-1.3); CREATININE 0.59 mg/dl (0.61-1.24); TOTAL PROTEIN 7.2 g/dl (6.1-8.1)
[2016-09-18 06:32] LABS: CALCIUM 9.3 mg/dl (8.4-10.2)
[2016-09-18 06:43] LABS: POTASSIUM 3.5 mmol/L (3.5-5.1)
[2016-09-18] MEDS: INSULIN GLARGINE [LANtus] 3 ML PEN SC SCH (08:00)
[2016-09-18 08:14] VITALS: BP 160/76; RESP 18
[2016-09-18] MEDS: INSULIN ASPART [NOVOLOG] 3 ML PEN SC SCH ×4 (08:15→21:00)
[2016-09-18] MEDS: POLYETHYLENE GLYCOL 17 GM PACKET PO SCH ×2 (08:59→21:00)
[2016-09-18] MEDS ORDERED: INSULIN GLARGINE [LANtus] 3 ML PEN SC ONE (09:00)
[2016-09-18] MEDS: CARBIDOPA/LEVODOPA (25/100) TAB PO SCH ×3 (09:01→21:21)
[2016-09-18] MEDS: FAMOTIDINE 20 MG TAB PO SCH ×2 (09:01→21:21)
[2016-09-18] MEDS: HEPARIN 5,000 UNIT/0.5 ML VIAL SC SCH ×2 (09:03→21:28)
[2016-09-18] MEDS: predniSOLONE (3 MG/ML PO SYG) PO SCH (10:34)
--- NOTE | 2016-09-18 10:53 | PN ---
Date/Time of Note Date/Time of Note DATE: 09/18/16 TIME: 10:47 Assessment/Plan VTE Prophylaxis VTE Prophylaxis Intervention: heparin Lines/Catheters [facility] Saline Lock Urinary Cath still in place: No Assessment/Plan Chief Complaint/Hosp Course Assessment and plan 1. Acute encephalopathy likely secondary to UTI and pneumonia. Resolving present. Continue to monitor neuro status 2. Sepsis secondary to UTI and pneumonia. Improving at present. Continue on antibiotics per ID recommendations 3. Pneumonia with pseudomonas aeruginosa and MRSA. On appropriate antibiotics. Noted with good response 4. UTI with ESBL. Continue on antibiotics per ID 5. COPD exacerbation. Titrate down O2 as tolerated. Continue on bronchodilators. 6. Parkinson's disease. Continue on Sinemet 7. Diabetes. Continue insulin regimen. Will adjust as needed Disposition plan: Continue on antibiotic therapy. Follow-up chest imaging. Discharge when medically stable and cleared by consultants Discussed plan of care with Dr. Moya Problems: Subjective 24 Hr Interval Summary Free Text/Dictation Reports having some right knee pain. No apparent distress. Exam/Review of Systems Vital Signs Vitals Vital Signs Date Time Temp Pulse Resp B/P Pulse Ox O2 Delivery O2 Flow Rate FiO2 09/18/16 08:14 98.2 81 18 160/76 98 09/18/16 07:15 Nasal Cannula 2.0 Intake and Output 09/17/16 09/17/16 09/18/16 15:00 23:00 07:00 Intake Total 1770 ml 590 ml Balance 1770 ml 590 ml Exam Constitutional: alert, other (Noted with parkinsonian symptoms) Psych: nl mood/affect Eyes: nl conjunctiva Neck: No jvd Respiratory: congested cough (Minimal) Cardiovascular: regular rate and rhythm Gastrointestinal: non-tender, soft Musculoskeletal: No nl gait and stance Skin: nl turgor Results Result Diagram: 09/18/16 0457 09/18/16 0457 Results 24 hrs Laboratory Tests Test 09/17/16 12:05 09/17/16 17:34 09/17/16 20:36 09/18/16 04:57 Bedside Glucose 92 161 166 White Blood Count 10.3 # Red Blood Count 4.30 L Hemoglobin 12.7 L Hematocrit 39.0 L Mean Corpuscular Volume 90.7 Mean Corpuscular Hemoglobin 29.5 Mean Corpuscular Hemoglobin Concent 32.6 Red Cell Distribution Width 13.7 Platelet Count 214 Mean Platelet Volume 9.1 Neutrophils % 62.1 Lymphocytes % 29.5 Monocytes % 6.2 Eosinophils % 1.4 Basophils % 0.2 Nucleated Red Blood Cells % 0.0 Neutrophils # 6.4 Lymphocytes # 3.0 H Monocytes # 0.6 Eosinophils # 0.1 Basophils # 0.0 Nucleated Red Blood Cells # 0.0 Prothrombin Time 13.9 Prothrombin Time Ratio 1.1 INR International Normalized Ratio 1.07 Activated Partial Thromboplast Time 28.2 Sodium Level 139 Potassium Level 3.5 Chloride Level 99 Carbon Dioxide Level 30 Anion Gap 14 Blood Urea Nitrogen 19 Creatinine 0.59 L Glucose Level 90 Calcium Level 9.3 Total Bilirubin 0.4 Direct Bilirubin 0.00 Indirect Bilirubin 0.4 Aspartate Amino Transf (AST/SGOT) 28 Alanine Aminotransferase (ALT/SGPT) 23 Alkaline Phosphatase 72 Total Protein 7.2 Albumin 3.5 Globulin 3.70 H Albumin/Globulin Ratio 0.94 Test 09/18/16 08:26 Bedside Glucose 79 Medications Medications Current Medications Acetaminophen (Tylenol Tab) 650 mg Q6H PRN PO PAIN AND OR ELEVATED TEMP Last administered on 09/17/16 08:48; Admin Dose 650 MG; Start 09/07/16 at 04:00 Ondansetron HCl (Zofran Inj) 4 mg Q6H PRN IV NAUSEA AND/OR VOMITING; Start 03/16 at 05:00 Heparin Sodium (Porcine) (Heparin (5000 Units/0.5 ml)) 5,000 unit BID SC Last administered on 09/18/16 09:03; Admin Dose 5,000 UNIT; Start 09/07/16 at 09:00 Insulin Glargine (Lantus) 10 unit DAILY@08 SC Last administered on 09/17/16 08 :15; Admin Dose 10 UNIT; Start 09/07/16 at 08:00 Diagnostic Test (Pha) (Accu-Chek) 1 ea 02 XX Last administered on 09/17/16 01: 41; Admin Dose 1 EA; Start 09/08/16 at 02:00 Miscellaneous Information 1 ea NOTE XX ; Start 09/07/16 at 06:45 Glucose (Glutose) 15 gm Q15M PRN PO DECREASED GLUCOSE; Start 09/07/16 at 06:45 Glucose (Glutose) 22.5 gm Q15M PRN PO DECREASED GLUCOSE; Start 09/07/16 at 06: 45 Dextrose (D50w Syringe) 25 ml Q15M PRN IV DECREASED GLUCOSE; Start 09/07/16 at 06:45 Dextrose (D50w Syringe) 50 ml Q15M PRN IV DECREASED GLUCOSE; Start 09/07/16 at 06:45 Glucagon (Glucagen) 1 mg Q15M PRN IM DECREASED GLUCOSE; Start 09/07/16 at 06:45 Glucose (Glutose) 15 gm Q15M PRN BUCCAL DECREASED GLUCOSE; Start 09/07/16 at 06 :45 Carbidopa/Levodopa (Sinemet (25/ 100)) 2 tab TID PO Last administered on 09:01; Admin Dose 2 TAB; Start 09/08/16 at 13:00 Polyethylene Glycol (Miralax) 17 gm BID PO Last administered on 09/18/16 08:59 ; Admin Dose 17 GM; Start 09/11/16 at 21:00 Bisacodyl 10 mg 10 mg DAILY PRN PO CONSTIPATION Last administered on 09/16/16 18:28; Admin Dose 10 MG; Start 09/11/16 at 13:30 Meropenem (Merrem 500 Mg/ 100 ml (Pmx)) 100 ml @ 200 mls/hr Q8 IVPB Last administered on 09/18/16 05:07; Admin Dose 200 MLS/HR; Start 09/11/16 at 22:00 Insulin Human NPH 10 unit 10 unit BID@08,20 SC Last administered on 09/17/16 20:40; Admin Dose 10 UNIT; Start 09/11/16 at 20:00; Status Future Hold Vancomycin HCl/ Sodium Chloride (Vancocin/NS) 150 ml @ 75 mls/hr Q12H IVPB Last administered on 09/18/16 00:20; Admin Dose 75 MLS/HR; Start 09/17/16 at 01 :00 Miscellaneous Information (*Rx Drug Level Order Reminder*) 1 ONCE ONCE XX ; Start 09/18/16 at 12:00; Stop 09/18/16 at 12:01 Famotidine (Pepcid) 20 mg BID PO Last administered on 09/18/16 09:01; Admin Dose 20 MG; Start 09/17/16 at 21:00 Prednisolone (Prelone (Ped)) 40 mg DAILY PO Last administered on 09/18/16t 10: 34; Admin Dose 40 MG; Start 09/18/16 at 09:00 ASHLEY FONG September 18, 2016 10:53
--- NOTE | 2016-09-18 13:14 | RADRPT ---
PROCEDURE: XR Chest. CLINICAL INDICATION: Follow-up of pneumonia. TECHNIQUE: Single frontal view of the chest was obtained. COMPARISON: Chest x-ray 08/13/2015 05:10 p.m. FINDINGS: The soft tissues are normal. There are degenerative osteophytes in the thoracic spine. The heart i s dextro rotated. The patient is also dextro rotated. cardiomediastinal silhouette and hilar struc tures are normal. The pulmonary vasculature is normal. There are vascular calcifications and ectasi a of the left-sided aorta. There is right apical pleural and parenchymal scarring which is unchanged . There are additional interstitial infiltrates in the right mid lung field compared to the earlier study. There is stable reticular scarring in the left upper lobe. There is less extensive reticul ar scarring in the bases of the lungs but new plate-like density suspicious for atelectasis are seen near the elevated right diaphragm. The right costophrenic angle is obscured. The left costophreni c angle is normal. IMPRESSION: 1. Limited study due to dextro rotation of the patient with a suspicion of new interstitial infiltra binta in the right mid lung field and additional areas of plate-like atelectasis in the right middle l ower right lower lobe areas. 2. Atherosclerosis and ectasia of the thoracic aorta. 3. Right apical pleural and parenchymal scarring and left upper lobe parenchymal scarring suspiciou s for a prior inflammatory process such as TB. 4. Atherosclerotic vascular disease. 5. 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 RPTAT:AAJJ Physician Ruel Date Time Electronically viewed and signed by Chris Duong Physician on 09/18/2016 13:14 RADHA/
--- NOTE | 2016-09-18 14:50 | PN ---
DATE: 09/18/2016 INFECTIOUS DISEASE PROGRESS NOTE SUBJECTIVE: No events overnight. No fevers. The patient is alert, responsive, lying comfortably i n bed. WBC today 10.3, no shift, no bands. BUN 19, creatinine 0.59. ANTIMICROBIALS: The patient remains on: 1. IV vancomycin. 2. Meropenem. PHYSICAL EXAMINATION: GENERAL: Fragile, elderly man who is alert, in no distress. HEENT: Head atraumatic, normocephalic. Sclerae anicteric. Buccal mucosa dry. NECK: Supple, trachea midline. CHEST: Rise symmetrical. Breath sounds diminished to bases. HEART: S1, S2. ABDOMEN: Soft, bowel sounds present. EXTREMITIES: Without cyanosis. ASSESSMENT: 1. Resolving sepsis. 2. Resolving encephalopathy. 3. Healthcare-associated pneumonia, chronic obstructive pulmonary disease exacerbation, sputum cult ure grew Pseudomonas and MRSA, completed antibiotics. 4. Diabetes. 5. Parkinson's dementia. 6. History of cardiac stents. 7. Status post Escherichia coli extended-spectrum beta-lactamase urinary tract infection. PLAN: The patient remains stable, clinically improving, completing antibiotics. Continue anti-aspi ration measures. Dictated By: SYLVAIN MENA STATION USHER for RADHA ZHU/JOSE RAFAEL Conf#: [id number] DID#: [id number]
[2016-09-18 19:17] VITALS: BP 127/63; RESP 18
[2016-09-19] MEDS: VANCOMYCIN 1 GM in NS 250 ML IVPB SCH ×2 (01:34→12:35)
[2016-09-19] MEDS: LEVALBUTEROL (NEB) 0.63 MG/3 ML AMP HHN SCH ×4 (01:42→20:03)
[2016-09-19] MEDS: ACCU-CHEK XX SCH (02:00)
[2016-09-19 05:50] LABS: ADD SCAN DIFF NO
[2016-09-19 05:58] LABS: BASOPHILS % 0.1 % (0.0-2.0); EOSINOPHILS # 0.1 10^3/ul (0.0-0.5); EOSINOPHILS % 1.3 % (0.0-7.0); HEMATOCRIT 36.4 % (42.0-52.0); HEMOGLOBIN 12.2 g/dl (14.0-18.0); LYMPHOCYTES # 1.6 10^3/ul (0.8-2.9); LYMPHOCYTES % 19.1 % (15.0-51.0); MEAN CORPUSCULAR HEMOGLOBIN 30.3 pg (29.0-33.0); MEAN CORPUSCULAR HGB CONC 33.5 g/dl (32.0-37.0); MEAN CORPUSCULAR VOLUME 90.3 fl (82.0-101.0); MEAN PLATELET VOLUME 9.2 fl (7.4-10.4); MONOCYTE # 0.7 10^3/ul (0.3-0.9); MONOCYTES % 7.7 % (0.0-11.0); NEUTROPHILS % 71.2 % (39.0-77.0); PLATELET COUNT 190 10^3/UL (140-415); RED BLOOD COUNT 4.03 10^6/ul (4.70-6.10); RED CELL DISTRIBUTION WIDTH 13.3 % (11.5-14.5); WHITE BLOOD COUNT 8.4 10^3/ul (4.8-10.8)
[2016-09-19] MEDS: MEROPENEM 500 MG/100 ML (PMX) 100 ML IVPB SCH ×3 (06:03→21:44)
[2016-09-19 06:10] LABS: CREATININE 0.6 mg/dl (0.61-1.24)
[2016-09-19 07:28] VITALS: BP 158/71; RESP 19
[2016-09-19] MEDS: INSULIN ASPART [NOVOLOG] 3 ML PEN SC SCH ×4 (08:15→21:00)
[2016-09-19] MEDS: POLYETHYLENE GLYCOL 17 GM PACKET PO SCH ×2 (09:00→21:00)
[2016-09-19] MEDS: INSULIN GLARGINE [LANtus] 3 ML PEN SC SCH (09:06)
[2016-09-19] MEDS: FAMOTIDINE 20 MG TAB PO SCH ×2 (09:06→21:44)
[2016-09-19] MEDS: CARBIDOPA/LEVODOPA (25/100) TAB PO SCH ×3 (09:07→21:44)
[2016-09-19] MEDS: HEPARIN 5,000 UNIT/0.5 ML VIAL SC SCH ×2 (09:08→22:02)
[2016-09-19] MEDS: predniSOLONE (3 MG/ML PO SYG) PO SCH (10:30)
--- NOTE | 2016-09-19 13:57 | PN ---
Date/Time of Note Date/Time of Note DATE: 09/19/16 TIME: 13:55 Assessment/Plan Lines/Catheters IV Catheter Type (from Nrs): Saline Lock Urinary Cath still in place: No Assessment/Plan Chief Complaint/Hosp Course Assessment and plan 1. Acute encephalopathy likely secondary to UTI and pneumonia. Stable. Continue to monitor neuro status 2. Sepsis secondary to UTI and pneumonia. Improving at present. Continue on antibiotics per ID recommendations 3. Pneumonia with pseudomonas aeruginosa and MRSA. On appropriate antibiotics. Improving 4. UTI with ESBL. Continue on antibiotics per ID 5. COPD exacerbation. Titrate down O2 as tolerated. Continue on bronchodilators. 6. Parkinson's disease. Continue on Sinemet 7. Diabetes. Continue insulin regimen. Will adjust as needed Disposition plan: Discussed with family, will plan for retirement facility placement. Follow-up with case management Discussed plan of care with Dr. Moya Problems: Subjective 24 Hr Interval Summary Free Text/Dictation No apparent distress at this time. Family at bedside Exam/Review of Systems Vital Signs Vitals Vital Signs Date Time Temp Pulse Resp B/P Pulse Ox O2 Delivery O2 Flow Rate FiO2 09/19/16 12:13 Nasal Cannula 2.0 09/19/16 08:02 99 09/19/16 08:02 70 18 09/19/16 07:28 97.5 158/71 Intake and Output 09/18/16 09/18/16 09/19/16 15:00 23:00 07:00 Intake Total 1210 ml 350 ml Balance 1210 ml 350 ml Exam Constitutional: alert, oriented Psych: nl mood/affect Neck: No jvd Respiratory: clear to auscultation, normal air movement Cardiovascular: regular rate and rhythm Gastrointestinal: non-tender, soft Musculoskeletal: No nl gait and stance Extremities: normal pulses Neurological: nl mental status Results Result Diagram: 09/19/16 0515 09/19/16 0500 Results 24 hrs Laboratory Tests Test 09/18/16 17:36 09/18/16 22:48 09/19/16 05:00 09/19/16 05:15 Bedside Glucose 233 H 148 Sodium Level 137 Potassium Level 4.0 Chloride Level 99 Carbon Dioxide Level 32 H Anion Gap 10 Blood Urea Nitrogen 20 Creatinine 0.60 L Glucose Level 137 # Calcium Level 9.0 White Blood Count 8.4 Red Blood Count 4.03 L Hemoglobin 12.2 L Hematocrit 36.4 L Mean Corpuscular Volume 90.3 Mean Corpuscular Hemoglobin 30.3 Mean Corpuscular Hemoglobin Concent 33.5 Red Cell Distribution Width 13.3 Platelet Count 190 Mean Platelet Volume 9.2 Neutrophils % 71.2 Lymphocytes % 19.1 Monocytes % 7.7 Eosinophils % 1.3 Basophils % 0.1 Nucleated Red Blood Cells % 0.0 Neutrophils # 6.0 Lymphocytes # 1.6 Monocytes # 0.7 Eosinophils # 0.1 Basophils # 0.0 Nucleated Red Blood Cells # 0.0 Test 09/19/16 09:05 09/19/16 12:29 Bedside Glucose 107 196 Medications Medications Current Medications Acetaminophen (Tylenol Tab) 650 mg Q6H PRN PO PAIN AND OR ELEVATED TEMP Last administered on 09/17/16 08:48; Admin Dose 650 MG; Start 09/07/16 at 04:00 Ondansetron HCl (Zofran Inj) 4 mg Q6H PRN IV NAUSEA AND/OR VOMITING; Start 03/16 at 05:00 Heparin Sodium (Porcine) (Heparin (5000 Units/0.5 ml)) 5,000 unit BID SC Last administered on 09/19/16 09:08; Admin Dose 5,000 UNIT; Start 09/07/16 at 09:00 Insulin Glargine (Lantus) 10 unit DAILY@08 SC Last administered on 09/19/16 09 :06; Admin Dose 10 UNIT; Start 09/07/16 at 08:00 Diagnostic Test (Pha) (Accu-Chek) 1 ea 02 XX Last administered on 09/17/16 01: 41; Admin Dose 1 EA; Start 09/08/16 at 02:00 Miscellaneous Information 1 ea NOTE XX ; Start 09/07/16 at 06:45 Glucose (Glutose) 15 gm Q15M PRN PO DECREASED GLUCOSE; Start 09/07/16 at 06:45 Glucose (Glutose) 22.5 gm Q15M PRN PO DECREASED GLUCOSE; Start 09/07/16 at 06: 45 Dextrose (D50w Syringe) 25 ml Q15M PRN IV DECREASED GLUCOSE; Start 09/07/16 at 06:45 Dextrose (D50w Syringe) 50 ml Q15M PRN IV DECREASED GLUCOSE; Start 09/07/16 at 06:45 Glucagon (Glucagen) 1 mg Q15M PRN IM DECREASED GLUCOSE; Start 09/07/16 at 06:45 Glucose (Glutose) 15 gm Q15M PRN BUCCAL DECREASED GLUCOSE; Start 09/07/16 at 06 :45 Carbidopa/Levodopa (Sinemet (25/ 100)) 2 tab TID PO Last administered on 13:23; Admin Dose 2 TAB; Start 09/08/16 at 13:00 Polyethylene Glycol (Miralax) 17 gm BID PO Last administered on 09/18/16 08:59 ; Admin Dose 17 GM; Start 09/11/16 at 21:00 Bisacodyl 10 mg 10 mg DAILY PRN PO CONSTIPATION Last administered on 09/16/16 18:28; Admin Dose 10 MG; Start 09/11/16 at 13:30 Meropenem (Merrem 500 Mg/ 100 ml (Pmx)) 100 ml @ 200 mls/hr Q8 IVPB Last administered on 09/19/16 06:03; Admin Dose 200 MLS/HR; Start 09/11/16 at 22:00 Insulin Human NPH (Humulin N) 10 unit BID@08,20 SC Last administered on 20:40; Admin Dose 10 UNIT; Start 09/11/16 at 20:00; Status Future Hold Famotidine (Pepcid) 20 mg BID PO Last administered on 09/19/16 09:06; Admin Dose 20 MG; Start 09/17/16 at 21:00 Prednisolone 40 mg 40 mg DAILY PO Last administered on 09/19/16 10:30; Admin Dose 40 MG; Start 09/18/16 at 09:00 Vancomycin HCl (Vancocin) 250 ml @ 125 mls/hr Q12H IVPB Last administered on 12:35; Admin Dose 125 MLS/HR; Start 09/19/16 at 01:00 Miscellaneous Information (*Rx Drug Level Order Reminder*) VANCO TROUGH @ 1, 200 ON... ONCE ONCE XX ; Start 09/20/16 at 12:00; Stop 09/20/16 at 12:01 ASHLEY FONG September 19, 2016 13:57
--- NOTE | 2016-09-19 14:17 | CONS ---
Date/Time of Note Date/Time of Note DATE: 09/19/16 TIME: 14:16 Assessment/Plan Assessment/Plan Chief Complaint/Hosp Course SUBJECTIVE: No acute events. Looks comfortable, no fevers MICROBIOLOGY: Sputum culture grew Pseudomonas aeruginosa and MRSA. Urine culture growing E. coli ESBL. ANTIMICROBIALS: Meropenem, Vanco PHYSICAL EXAMINATION: GENERAL: This is a fragile, elderly man who is in no distress. HEENT: Head atraumatic, normocephalic. Sclerae anicteric. Buccal mucosa dry. NECK: Supple, trachea midline. CHEST: Rise symmetrical. Breath sounds diminished to bases. HEART: S1, S2. ABDOMEN: Soft. Bowel sounds present. EXTREMITIES: Without cyanosis. ASSESSMENT: 1. S/p sepsis with acute on chronic encephalopathy. 2. Urinary tract infection with urine culture growing Escherichia coli extended -spectrum beta-lactamase. 3. Chronic obstructive pulmonary disease exacerbation with acute tracheobronchitis. Cultures growing Pseudomonas aeruginosa/MRSA. 4. Parkinson's dementia. 5. Diabetes. 6. History of cardiac stents. PLAN: Remains stable. Completing antibiotics, continue anti-aspiration measures. Pending dc planning DW pt/ Problems: Consultation Date/Type/Reason Admit Date/Time September 07, 2016 at 15:26 Type of Consultation: ID Exam/Review of Systems Vital Signs Vitals Vital Signs Date Time Temp Pulse Resp B/P Pulse Ox O2 Delivery O2 Flow Rate FiO2 09/19/16 12:13 Nasal Cannula 2.0 09/19/16 08:02 99 09/19/16 08:02 70 18 09/19/16 07:28 97.5 158/71 Intake and Output 09/18/16 09/18/16 09/19/16 15:00 23:00 07:00 Intake Total 1210 ml 350 ml Balance 1210 ml 350 ml Results Result Diagram: 09/19/16 0515 09/19/16 0500 Results 24 hrs Laboratory Tests Test 09/18/16 17:36 09/18/16 22:48 09/19/16 05:00 09/19/16 05:15 Bedside Glucose 233 H 148 Sodium Level 137 Potassium Level 4.0 Chloride Level 99 Carbon Dioxide Level 32 H Anion Gap 10 Blood Urea Nitrogen 20 Creatinine 0.60 L Glucose Level 137 # Calcium Level 9.0 White Blood Count 8.4 Red Blood Count 4.03 L Hemoglobin 12.2 L Hematocrit 36.4 L Mean Corpuscular Volume 90.3 Mean Corpuscular Hemoglobin 30.3 Mean Corpuscular Hemoglobin Concent 33.5 Red Cell Distribution Width 13.3 Platelet Count 190 Mean Platelet Volume 9.2 Neutrophils % 71.2 Lymphocytes % 19.1 Monocytes % 7.7 Eosinophils % 1.3 Basophils % 0.1 Nucleated Red Blood Cells % 0.0 Neutrophils # 6.0 Lymphocytes # 1.6 Monocytes # 0.7 Eosinophils # 0.1 Basophils # 0.0 Nucleated Red Blood Cells # 0.0 Test 09/19/16 09:05 09/19/16 12:29 Bedside Glucose 107 196 Medications Medications Current Medications Acetaminophen (Tylenol Tab) 650 mg Q6H PRN PO PAIN AND OR ELEVATED TEMP Last administered on 09/17/16 08:48; Admin Dose 650 MG; Start 09/07/16 at 04:00 Ondansetron HCl (Zofran Inj) 4 mg Q6H PRN IV NAUSEA AND/OR VOMITING; Start 03/16 at 05:00 Heparin Sodium (Porcine) (Heparin (5000 Units/0.5 ml)) 5,000 unit BID SC Last administered on 09/19/16 09:08; Admin Dose 5,000 UNIT; Start 09/07/16 at 09:00 Insulin Glargine (Lantus) 10 unit DAILY@08 SC Last administered on 09/19/16 09 :06; Admin Dose 10 UNIT; Start 09/07/16 at 08:00 Diagnostic Test (Pha) (Accu-Chek) 1 ea 02 XX Last administered on 09/17/16 01: 41; Admin Dose 1 EA; Start 09/08/16 at 02:00 Miscellaneous Information 1 ea NOTE XX ; Start 09/07/16 at 06:45 Glucose (Glutose) 15 gm Q15M PRN PO DECREASED GLUCOSE; Start 09/07/16 at 06:45 Glucose (Glutose) 22.5 gm Q15M PRN PO DECREASED GLUCOSE; Start 09/07/16 at 06: 45 Dextrose (D50w Syringe) 25 ml Q15M PRN IV DECREASED GLUCOSE; Start 09/07/16 at 06:45 Dextrose (D50w Syringe) 50 ml Q15M PRN IV DECREASED GLUCOSE; Start 09/07/16 at 06:45 Glucagon (Glucagen) 1 mg Q15M PRN IM DECREASED GLUCOSE; Start 09/07/16 at 06:45 Glucose (Glutose) 15 gm Q15M PRN BUCCAL DECREASED GLUCOSE; Start 09/07/16 at 06 :45 Carbidopa/Levodopa (Sinemet (25/ 100)) 2 tab TID PO Last administered on 13:23; Admin Dose 2 TAB; Start 09/08/16 at 13:00 Polyethylene Glycol (Miralax) 17 gm BID PO Last administered on 09/18/16 08:59 ; Admin Dose 17 GM; Start 09/11/16 at 21:00 Bisacodyl 10 mg 10 mg DAILY PRN PO CONSTIPATION Last administered on 09/16/16 18:28; Admin Dose 10 MG; Start 09/11/16 at 13:30 Meropenem (Merrem 500 Mg/ 100 ml (Pmx)) 100 ml @ 200 mls/hr Q8 IVPB Last administered on 09/19/16 06:03; Admin Dose 200 MLS/HR; Start 09/11/16 at 22:00 Insulin Human NPH (Humulin N) 10 unit BID@08,20 SC Last administered on 20:40; Admin Dose 10 UNIT; Start 09/11/16 at 20:00; Status Future Hold Famotidine (Pepcid) 20 mg BID PO Last administered on 09/19/16 09:06; Admin Dose 20 MG; Start 09/17/16 at 21:00 Prednisolone 40 mg 40 mg DAILY PO Last administered on 09/19/16 10:30; Admin Dose 40 MG; Start 09/18/16 at 09:00 Vancomycin HCl (Vancocin) 250 ml @ 125 mls/hr Q12H IVPB Last administered on 12:35; Admin Dose 125 MLS/HR; Start 09/19/16 at 01:00 Miscellaneous Information (*Rx Drug Level Order Reminder*) VANCO TROUGH @ 1, 200 ON... ONCE ONCE XX ; Start 09/20/16 at 12:00; Stop 09/20/16 at 12:01 SYLVAIN MENA NP September 19, 2016 14:17
[2016-09-19 20:19] VITALS: BP 138/67; RESP 16
[2016-09-20] MEDS: VANCOMYCIN 1 GM in NS 250 ML IVPB SCH ×2 (01:26→13:08)
[2016-09-20] MEDS: LEVALBUTEROL (NEB) 0.63 MG/3 ML AMP HHN SCH ×4 (01:59→19:46)
[2016-09-20] MEDS: ACCU-CHEK XX SCH (02:00)
[2016-09-20] MEDS: MEROPENEM 500 MG/100 ML (PMX) 100 ML IVPB SCH ×3 (05:21→21:46)
[2016-09-20 05:56] LABS: ADD SCAN DIFF NO
[2016-09-20 06:03] LABS: BASOPHILS % 0.4 % (0.0-2.0); EOSINOPHILS # 0.1 10^3/ul (0.0-0.5); EOSINOPHILS % 1.6 % (0.0-7.0); HEMATOCRIT 34.1 % (42.0-52.0); HEMOGLOBIN 11.5 g/dl (14.0-18.0); LYMPHOCYTES # 1.6 10^3/ul (0.8-2.9); LYMPHOCYTES % 19.6 % (15.0-51.0); MEAN CORPUSCULAR HEMOGLOBIN 30.6 pg (29.0-33.0); MEAN CORPUSCULAR HGB CONC 33.7 g/dl (32.0-37.0); MEAN CORPUSCULAR VOLUME 90.7 fl (82.0-101.0); MEAN PLATELET VOLUME 9.3 fl (7.4-10.4); MONOCYTE # 0.6 10^3/ul (0.3-0.9); MONOCYTES % 7.4 % (0.0-11.0); NEUTROPHIL # 5.6 10^3/ul (1.6-7.5); NEUTROPHILS % 70.4 % (39.0-77.0); PLATELET COUNT 182 10^3/UL (140-415); RED BLOOD COUNT 3.76 10^6/ul (4.70-6.10); RED CELL DISTRIBUTION WIDTH 13.3 % (11.5-14.5)
[2016-09-20 06:32] LABS: POTASSIUM 3.7 mmol/L (3.5-5.1)
[2016-09-20 06:35] LABS: CREATININE 0.57 mg/dl (0.61-1.24)
[2016-09-20 06:36] LABS: CALCIUM 8.7 mg/dl (8.4-10.2)
[2016-09-20 07:21] VITALS: BP 139/73; RESP 18
[2016-09-20] MEDS: INSULIN ASPART [NOVOLOG] 3 ML PEN SC SCH ×4 (08:11→22:06)
[2016-09-20] MEDS: INSULIN GLARGINE [LANtus] 3 ML PEN SC SCH (08:36)
[2016-09-20] MEDS: HEPARIN 5,000 UNIT/0.5 ML VIAL SC SCH ×2 (08:37→21:57)
[2016-09-20] MEDS: CARBIDOPA/LEVODOPA (25/100) TAB PO SCH ×3 (08:37→21:45)
[2016-09-20] MEDS: FAMOTIDINE 20 MG TAB PO SCH ×2 (08:37→21:45)
[2016-09-20] MEDS: predniSOLONE (3 MG/ML PO SYG) PO SCH (08:38)
[2016-09-20] MEDS: POLYETHYLENE GLYCOL 17 GM PACKET PO SCH ×2 (08:40→21:45)
--- NOTE | 2016-09-20 13:12 | CONS ---
Date/Time of Note Date/Time of Note DATE: 09/20/16 TIME: 13:11 Assessment/Plan Assessment/Plan Chief Complaint/Hosp Course SUBJECTIVE: No acute events. no fevers MICROBIOLOGY: Sputum culture grew Pseudomonas aeruginosa and MRSA. Urine culture grew E. coli ESBL. ANTIMICROBIALS: Meropenem, Vanco PHYSICAL EXAMINATION: GENERAL: This is a fragile, elderly man who is in no distress. HEENT: Head atraumatic, normocephalic. Sclerae anicteric. Buccal mucosa dry. NECK: Supple, trachea midline. CHEST: Rise symmetrical. Breath sounds diminished to bases. HEART: S1, S2. ABDOMEN: Soft. Bowel sounds present. EXTREMITIES: Without cyanosis. ASSESSMENT: 1. S/p sepsis with acute on chronic encephalopathy. 2. Urinary tract infection with urine culture growing Escherichia coli extended -spectrum beta-lactamase. 3. Chronic obstructive pulmonary disease exacerbation with acute tracheobronchitis. Cultures growing Pseudomonas aeruginosa/MRSA. 4. Parkinson's dementia. 5. Diabetes. 6. History of cardiac stents. PLAN: Remains stable. Completing antibiotics, continue anti-aspiration measures. Dc abx in am and observe DW staff Problems: Consultation Date/Type/Reason Admit Date/Time September 07, 2016 at 15:26 Type of Consultation: ID Exam/Review of Systems Vital Signs Vitals Vital Signs Date Time Temp Pulse Resp B/P Pulse Ox O2 Delivery O2 Flow Rate FiO2 09/20/16 07:43 67 16 99 Nasal Cannula 2.0 09/20/16 07:21 97.6 139/73 Intake and Output 09/19/16 09/19/16 09/20/16 15:00 23:00 07:00 Intake Total 450 ml 1040 ml 550 ml Balance 450 ml 1040 ml 550 ml Results Result Diagram: 09/20/16 0509 09/20/16 0509 Results 24 hrs Laboratory Tests Test 09/19/16 17:56 09/19/16 21:47 09/20/16 05:09 09/20/16 08:04 Bedside Glucose 221 H 150 105 White Blood Count 8.0 Red Blood Count 3.76 L Hemoglobin 11.5 L Hematocrit 34.1 L Mean Corpuscular Volume 90.7 Mean Corpuscular Hemoglobin 30.6 Mean Corpuscular Hemoglobin Concent 33.7 Red Cell Distribution Width 13.3 Platelet Count 182 Mean Platelet Volume 9.3 Neutrophils % 70.4 Lymphocytes % 19.6 Monocytes % 7.4 Eosinophils % 1.6 Basophils % 0.4 Nucleated Red Blood Cells % 0.0 Neutrophils # 5.6 Lymphocytes # 1.6 Monocytes # 0.6 Eosinophils # 0.1 Basophils # 0.0 Nucleated Red Blood Cells # 0.0 Sodium Level 135 Potassium Level 3.7 Chloride Level 99 Carbon Dioxide Level 29 Anion Gap 11 Blood Urea Nitrogen 23 H Creatinine 0.57 L Glucose Level 106 Calcium Level 8.7 Test 09/20/16 12:07 09/20/16 12:18 Vancomycin Level Trough 15.3 Bedside Glucose 141 Medications Medications Current Medications Acetaminophen (Tylenol Tab) 650 mg Q6H PRN PO PAIN AND OR ELEVATED TEMP Last administered on 09/17/16 08:48; Admin Dose 650 MG; Start 09/07/16 at 04:00 Ondansetron HCl (Zofran Inj) 4 mg Q6H PRN IV NAUSEA AND/OR VOMITING; Start 03/16 at 05:00 Heparin Sodium (Porcine) (Heparin (5000 Units/0.5 ml)) 5,000 unit BID SC Last administered on 09/20/16 08:37; Admin Dose 5,000 UNIT; Start 09/07/16 at 09:00 Insulin Glargine (Lantus) 10 unit DAILY@08 SC Last administered on 09/20/16 08 :36; Admin Dose 10 UNIT; Start 09/07/16 at 08:00 Diagnostic Test (Pha) (Accu-Chek) 1 ea 02 XX Last administered on 09/17/16 01: 41; Admin Dose 1 EA; Start 09/08/16 at 02:00 Miscellaneous Information 1 ea NOTE XX ; Start 09/07/16 at 06:45 Glucose (Glutose) 15 gm Q15M PRN PO DECREASED GLUCOSE; Start 09/07/16 at 06:45 Glucose (Glutose) 22.5 gm Q15M PRN PO DECREASED GLUCOSE; Start 09/07/16 at 06: 45 Dextrose (D50w Syringe) 25 ml Q15M PRN IV DECREASED GLUCOSE; Start 09/07/16 at 06:45 Dextrose (D50w Syringe) 50 ml Q15M PRN IV DECREASED GLUCOSE; Start 09/07/16 at 06:45 Glucagon (Glucagen) 1 mg Q15M PRN IM DECREASED GLUCOSE; Start 09/07/16 at 06:45 Glucose (Glutose) 15 gm Q15M PRN BUCCAL DECREASED GLUCOSE; Start 09/07/16 at 06 :45 Carbidopa/Levodopa (Sinemet (25/ 100)) 2 tab TID PO Last administered on 13:09; Admin Dose 2 TAB; Start 09/08/16 at 13:00 Polyethylene Glycol (Miralax) 17 gm BID PO Last administered on 09/18/16 08:59 ; Admin Dose 17 GM; Start 09/11/16 at 21:00 Bisacodyl 10 mg 10 mg DAILY PRN PO CONSTIPATION Last administered on 09/16/16 18:28; Admin Dose 10 MG; Start 09/11/16 at 13:30 Meropenem (Merrem 500 Mg/ 100 ml (Pmx)) 100 ml @ 200 mls/hr Q8 IVPB Last administered on 09/20/16 05:21; Admin Dose 200 MLS/HR; Start 09/11/16 at 22:00 Insulin Human NPH (Humulin N) 10 unit BID@08,20 SC Last administered on 20:40; Admin Dose 10 UNIT; Start 09/11/16 at 20:00; Status Future Hold Famotidine (Pepcid) 20 mg BID PO Last administered on 09/20/16 08:37; Admin Dose 20 MG; Start 09/17/16 at 21:00 Prednisolone 40 mg 40 mg DAILY PO Last administered on 09/20/16 08:38; Admin Dose 40 MG; Start 09/18/16 at 09:00 Vancomycin HCl (Vancocin) 250 ml @ 125 mls/hr Q12H IVPB Last administered on 13:08; Admin Dose 125 MLS/HR; Start 09/19/16 at 01:00 SYLVAIN MENA NP September 20, 2016 13:12
--- NOTE | 2016-09-20 15:33 | PN ---
Date/Time of Note Date/Time of Note DATE: 09/20/16 TIME: 15:31 Assessment/Plan VTE Prophylaxis VTE Prophylaxis Intervention: heparin Lines/Catheters IV [facility] Type (from [facility] Saline Lock Urinary Cath still in place: No Assessment/Plan Chief Complaint/Hosp Course Assessment and plan 1. Acute encephalopathy likely secondary to UTI and pneumonia. Stable. Continue to monitor neuro status 2. Sepsis secondary to UTI and pneumonia. Improving at present. Continue on antibiotics per ID recommendations. tentative plan for d/c of abx 3. Pneumonia with pseudomonas aeruginosa and MRSA. On appropriate antibiotics. Improving 4. UTI with ESBL. Continue on antibiotics per ID 5. COPD exacerbation. Titrate down O2 as tolerated. Continue on bronchodilators. 6. Parkinson's disease. Continue on Sinemet 7. Diabetes. Continue insulin regimen. Will adjust as needed Disposition plan: Discussed with case management today. Awaiting for snf placement Discussed plan of care with Dr. Moya Problems: Subjective 24 Hr Interval Summary Free Text/Dictation comfortable at present. no s/s of distress Exam/Review of Systems Vital Signs Vitals Vital Signs Date Time Temp Pulse Resp B/P Pulse Ox O2 Delivery O2 Flow Rate FiO2 09/20/16 13:49 74 16 99 Nasal Cannula 2.0 09/20/16 07:21 97.6 139/73 Intake and Output 09/19/16 09/19/16 09/20/16 15:00 23:00 07:00 Intake Total 450 ml 1040 ml 550 ml Balance 450 ml 1040 ml 550 ml Exam Constitutional: alert, oriented, no s/s of distress Psych: nl mood/affect Neck: No jvd Respiratory: clear to auscultation, normal air movement Cardiovascular: regular rate and rhythm Gastrointestinal: non-tender, soft Musculoskeletal: No nl gait and stance Extremities: normal pulses Neurological: nl mental status Results Result Diagram: 09/20/16 0509 09/20/16 0509 Results 24 hrs Laboratory Tests Test 09/19/16 17:56 09/19/16 21:47 09/20/16 05:09 09/20/16 08:04 Bedside Glucose 221 H 150 105 White Blood Count 8.0 Red Blood Count 3.76 L Hemoglobin 11.5 L Hematocrit 34.1 L Mean Corpuscular Volume 90.7 Mean Corpuscular Hemoglobin 30.6 Mean Corpuscular Hemoglobin Concent 33.7 Red Cell Distribution Width 13.3 Platelet Count 182 Mean Platelet Volume 9.3 Neutrophils % 70.4 Lymphocytes % 19.6 Monocytes % 7.4 Eosinophils % 1.6 Basophils % 0.4 Nucleated Red Blood Cells % 0.0 Neutrophils # 5.6 Lymphocytes # 1.6 Monocytes # 0.6 Eosinophils # 0.1 Basophils # 0.0 Nucleated Red Blood Cells # 0.0 Sodium Level 135 Potassium Level 3.7 Chloride Level 99 Carbon Dioxide Level 29 Anion Gap 11 Blood Urea Nitrogen 23 H Creatinine 0.57 L Glucose Level 106 Calcium Level 8.7 Test 09/20/16 12:07 09/20/16 12:18 Vancomycin Level Trough 15.3 Bedside Glucose 141 Medications Medications Current Medications Acetaminophen (Tylenol Tab) 650 mg Q6H PRN PO PAIN AND OR ELEVATED TEMP Last administered on 09/17/16 08:48; Admin Dose 650 MG; Start 09/07/16 at 04:00 Ondansetron HCl (Zofran Inj) 4 mg Q6H PRN IV NAUSEA AND/OR VOMITING; Start 03/16 at 05:00 Heparin Sodium (Porcine) (Heparin (5000 Units/0.5 ml)) 5,000 unit BID SC Last administered on 09/20/16 08:37; Admin Dose 5,000 UNIT; Start 09/07/16 at 09:00 Insulin Glargine (Lantus) 10 unit DAILY@08 SC Last administered on 09/20/16 08 :36; Admin Dose 10 UNIT; Start 09/07/16 at 08:00 Diagnostic Test (Pha) (Accu-Chek) 1 ea 02 XX Last administered on 09/17/16 01: 41; Admin Dose 1 EA; Start 09/08/16 at 02:00 Miscellaneous Information 1 ea NOTE XX ; Start 09/07/16 at 06:45 Glucose (Glutose) 15 gm Q15M PRN PO DECREASED GLUCOSE; Start 09/07/16 at 06:45 Glucose (Glutose) 22.5 gm Q15M PRN PO DECREASED GLUCOSE; Start 09/07/16 at 06: 45 Dextrose (D50w Syringe) 25 ml Q15M PRN IV DECREASED GLUCOSE; Start 09/07/16 at 06:45 Dextrose (D50w Syringe) 50 ml Q15M PRN IV DECREASED GLUCOSE; Start 09/07/16 at 06:45 Glucagon (Glucagen) 1 mg Q15M PRN IM DECREASED GLUCOSE; Start 09/07/16 at 06:45 Glucose (Glutose) 15 gm Q15M PRN BUCCAL DECREASED GLUCOSE; Start 09/07/16 at 06 :45 Carbidopa/Levodopa (Sinemet (25/ 100)) 2 tab TID PO Last administered on 13:09; Admin Dose 2 TAB; Start 09/08/16 at 13:00 Polyethylene Glycol (Miralax) 17 gm BID PO Last administered on 09/18/16 08:59 ; Admin Dose 17 GM; Start 09/11/16 at 21:00 Bisacodyl 10 mg 10 mg DAILY PRN PO CONSTIPATION Last administered on 09/16/16 18:28; Admin Dose 10 MG; Start 09/11/16 at 13:30 Meropenem (Merrem 500 Mg/ 100 ml (Pmx)) 100 ml @ 200 mls/hr Q8 IVPB Last administered on 09/20/16 15:16; Admin Dose 200 MLS/HR; Start 09/11/16 at 22:00 ; Stop 09/21/16 at 06:00 Insulin Human NPH (Humulin N) 10 unit BID@08,20 SC Last administered on 20:40; Admin Dose 10 UNIT; Start 09/11/16 at 20:00; Status Future Hold Famotidine (Pepcid) 20 mg BID PO Last administered on 09/20/16 08:37; Admin Dose 20 MG; Start 09/17/16 at 21:00 Prednisolone 40 mg 40 mg DAILY PO Last administered on 09/20/16 08:38; Admin Dose 40 MG; Start 09/18/16 at 09:00 Vancomycin HCl (Vancocin) 250 ml @ 125 mls/hr Q12H IVPB Last administered on 13:08; Admin Dose 125 MLS/HR; Start 09/19/16 at 01:00; Stop 09/21/16 at 06:00 ASHLEY FONG September 20, 2016 15:33
[2016-09-20 19:22] VITALS: BP 124/62; RESP 20
[2016-09-21] MEDS: VANCOMYCIN 1 GM in NS 250 ML IVPB SCH (01:32)
[2016-09-21] MEDS: LEVALBUTEROL (NEB) 0.63 MG/3 ML AMP HHN SCH ×4 (01:42→20:02)
[2016-09-21] MEDS: ACCU-CHEK XX SCH (01:57)
[2016-09-21 05:40] LABS: ADD SCAN DIFF NO
[2016-09-21 05:54] LABS: BASOPHILS % 0.1 % (0.0-2.0); EOSINOPHILS # 0.1 10^3/ul (0.0-0.5); EOSINOPHILS % 0.8 % (0.0-7.0); HEMATOCRIT 36.6 % (42.0-52.0); HEMOGLOBIN 11.8 g/dl (14.0-18.0); LYMPHOCYTES # 1.4 10^3/ul (0.8-2.9); LYMPHOCYTES % 18.9 % (15.0-51.0); MEAN CORPUSCULAR HEMOGLOBIN 29.5 pg (29.0-33.0); MEAN CORPUSCULAR HGB CONC 32.2 g/dl (32.0-37.0); MEAN CORPUSCULAR VOLUME 91.5 fl (82.0-101.0); MEAN PLATELET VOLUME 9.5 fl (7.4-10.4); MONOCYTE # 0.6 10^3/ul (0.3-0.9); MONOCYTES % 8.6 % (0.0-11.0); NEUTROPHIL # 5.1 10^3/ul (1.6-7.5); NEUTROPHILS % 71.2 % (39.0-77.0); PLATELET COUNT 181 10^3/UL (140-415); RED CELL DISTRIBUTION WIDTH 13.3 % (11.5-14.5); WHITE BLOOD COUNT 7.2 10^3/ul (4.8-10.8)
[2016-09-21] MEDS: MEROPENEM 500 MG/100 ML (PMX) 100 ML IVPB SCH (06:23)
[2016-09-21 06:28] LABS: POTASSIUM 4.5 mmol/L (3.5-5.1)
[2016-09-21 06:30] LABS: CREATININE 0.59 mg/dl (0.61-1.24)
[2016-09-21 06:31] LABS: CALCIUM 9.1 mg/dl (8.4-10.2)
[2016-09-21 06:56] VITALS: BP 174/85; RESP 18
[2016-09-21] MEDS: INSULIN ASPART [NOVOLOG] 3 ML PEN SC SCH ×4 (08:15→21:00)
[2016-09-21 09:07] VITALS: BP 148/70; PULSE 78
[2016-09-21] MEDS: POLYETHYLENE GLYCOL 17 GM PACKET PO SCH ×2 (09:09→20:42)
[2016-09-21] MEDS: CARBIDOPA/LEVODOPA (25/100) TAB PO SCH ×3 (09:09→20:41)
[2016-09-21] MEDS: FAMOTIDINE 20 MG TAB PO SCH ×2 (09:09→20:41)
[2016-09-21] MEDS: predniSOLONE (3 MG/ML PO SYG) PO SCH (09:09)
[2016-09-21] MEDS: HEPARIN 5,000 UNIT/0.5 ML VIAL SC SCH ×2 (09:21→20:59)
[2016-09-21] MEDS: INSULIN GLARGINE [LANtus] 3 ML PEN SC SCH (09:21)
--- NOTE | 2016-09-21 10:52 | PN ---
Date/Time of Note Date/Time of Note DATE: 09/21/16 TIME: 10:48 Assessment/Plan VTE Prophylaxis VTE Prophylaxis Intervention: heparin Lines/Catheters IV [facility]from [facility] Saline Lock Urinary Cath still in place: No Assessment/Plan Chief Complaint/Hosp Course Assessment and plan 1. Acute encephalopathy likely secondary to UTI and pneumonia. Stable. Continue to monitor neuro status 2. Sepsis secondary to UTI and pneumonia. Improving at present. Continue with ID consult recommendation 3. Pneumonia with pseudomonas aeruginosa and MRSA. Improved 4. UTI with ESBL. Continue with ID recommendation 5. COPD exacerbation. Bronchodilators as needed. No wheezing noted. Trial off O2 6. Parkinson's disease. Continue on Sinemet 7. Diabetes. Continue insulin regimen. Will adjust as needed Disposition plan: Still awaiting placement. Discussed with case management again today. Discussed plan of care with Dr. Moya Problems: Subjective 24 Hr Interval Summary Free Text/Dictation Resting at this time. No apparent distress. Reports better breathing at this time. Exam/Review of Systems Vital Signs Vitals Vital Signs Date Time Temp Pulse Resp B/P Pulse Ox O2 Delivery O2 Flow Rate FiO2 09/21/16 09:07 78 148/70 09/21/16 07:58 18 95 21 09/21/16 06:56 97.7 09/21/16 01:43 Nasal Cannula 2.0 Intake and Output 09/20/16 09/20/16 09/21/16 15:00 23:00 07:00 Intake Total 1090 ml 365 ml Balance 1090 ml 365 ml Exam Constitutional: alert, oriented, no s/s of distress. No reported shortness of breath Psych: nl mood/affect Neck: No jvd Respiratory: clear to auscultation, normal air movement today Cardiovascular: regular rate , unchanged Gastrointestinal: non-tender, soft Extremities: normal pulses Neurological: nl mental status Results Result Diagram: 09/21/16 0500 09/21/16 0500 Results 24 hrs Laboratory Tests Test 09/20/16 12:07 09/20/16 12:18 09/20/16 17:27 09/20/16 22:02 Vancomycin Level Trough 15.3 Bedside Glucose 141 202 200 Test 09/21/16 01:31 09/21/16 05:00 09/21/16 09:03 Bedside Glucose 125 106 White Blood Count 7.2 Red Blood Count 4.00 L Hemoglobin 11.8 L Hematocrit 36.6 L Mean Corpuscular Volume 91.5 Mean Corpuscular Hemoglobin 29.5 Mean Corpuscular Hemoglobin Concent 32.2 Red Cell Distribution Width 13.3 Platelet Count 181 Mean Platelet Volume 9.5 Neutrophils % 71.2 Lymphocytes % 18.9 Monocytes % 8.6 Eosinophils % 0.8 Basophils % 0.1 Nucleated Red Blood Cells % 0.0 Neutrophils # 5.1 Lymphocytes # 1.4 Monocytes # 0.6 Eosinophils # 0.1 Basophils # 0.0 Nucleated Red Blood Cells # 0.0 Sodium Level 138 Potassium Level 4.5 Chloride Level 98 Carbon Dioxide Level 33 H Anion Gap 12 Blood Urea Nitrogen 21 H Creatinine 0.59 L Glucose Level 135 Calcium Level 9.1 Medications Medications Current Medications Acetaminophen (Tylenol Tab) 650 mg Q6H PRN PO PAIN AND OR ELEVATED TEMP Last administered on 09/17/16 08:48; Admin Dose 650 MG; Start 09/07/16 at 04:00 Ondansetron HCl (Zofran Inj) 4 mg Q6H PRN IV NAUSEA AND/OR VOMITING; Start 03/16 at 05:00 Heparin Sodium (Porcine) (Heparin (5000 Units/0.5 ml)) 5,000 unit BID SC Last administered on 09/21/16 09:21; Admin Dose 5,000 UNIT; Start 09/07/16 at 09:00 Insulin Glargine (Lantus) 10 unit DAILY@08 SC Last administered on 09/21/16 09 :21; Admin Dose 10 UNIT; Start 09/07/16 at 08:00 Diagnostic Test (Pha) (Accu-Chek) 1 ea 02 XX Last administered on 09/17/16 01: 41; Admin Dose 1 EA; Start 09/08/16 at 02:00 Miscellaneous Information 1 ea NOTE XX ; Start 09/07/16 at 06:45 Glucose (Glutose) 15 gm Q15M PRN PO DECREASED GLUCOSE; Start 09/07/16 at 06:45 Glucose (Glutose) 22.5 gm Q15M PRN PO DECREASED GLUCOSE; Start 09/07/16 at 06: 45 Dextrose (D50w Syringe) 25 ml Q15M PRN IV DECREASED GLUCOSE; Start 09/07/16 at 06:45 Dextrose (D50w Syringe) 50 ml Q15M PRN IV DECREASED GLUCOSE; Start 09/07/16 at 06:45 Glucagon (Glucagen) 1 mg Q15M PRN IM DECREASED GLUCOSE; Start 09/07/16 at 06:45 Glucose (Glutose) 15 gm Q15M PRN BUCCAL DECREASED GLUCOSE; Start 09/07/16 at 06 :45 Carbidopa/Levodopa (Sinemet (25/ 100)) 2 tab TID PO Last administered on 09:09; Admin Dose 2 TAB; Start 09/08/16 at 13:00 Polyethylene Glycol (Miralax) 17 gm BID PO Last administered on 09/21/16 09:09 ; Admin Dose 17 GM; Start 09/11/16 at 21:00 Bisacodyl (Dulcolax) 10 mg DAILY PRN PO CONSTIPATION Last administered on 18:28; Admin Dose 10 MG; Start 09/11/16 at 13:30 Insulin Human NPH (Humulin N) 10 unit BID@08,20 SC Last administered on 20:40; Admin Dose 10 UNIT; Start 09/11/16 at 20:00; Status Future Hold Famotidine (Pepcid) 20 mg BID PO Last administered on 09/21/16 09:09; Admin Dose 20 MG; Start 09/17/16 at 21:00 Prednisolone (Prelone (Ped)) 40 mg DAILY PO Last administered on 09/21/16 09: 09; Admin Dose 40 MG; Start 09/18/16 at 09:00 ASHLEY FONG September 21, 2016 10:52
--- NOTE | 2016-09-21 13:27 | CONS ---
Date/Time of Note Date/Time of Note DATE: 09/21/16 TIME: 13:26 Assessment/Plan Assessment/Plan Chief Complaint/Hosp Course SUBJECTIVE: No acute events. no fevers MICROBIOLOGY: Sputum culture grew Pseudomonas aeruginosa and MRSA. Urine culture grew E. coli ESBL. PHYSICAL EXAMINATION: GENERAL: This is a fragile, elderly man who is in no distress. HEENT: Head atraumatic, normocephalic. Sclerae anicteric. Buccal mucosa dry. NECK: Supple, trachea midline. CHEST: Rise symmetrical. Breath sounds diminished to bases. HEART: S1, S2. ABDOMEN: Soft. Bowel sounds present. EXTREMITIES: Without cyanosis. ASSESSMENT: 1. S/p sepsis with acute on chronic encephalopathy. 2. Urinary tract infection with urine culture growing Escherichia coli extended -spectrum beta-lactamase. 3. Chronic obstructive pulmonary disease exacerbation with acute tracheobronchitis. Cultures growing Pseudomonas aeruginosa/MRSA. 4. Parkinson's dementia. 5. Diabetes. 6. History of cardiac stents. PLAN: Remains stable. Off antibiotics, continue anti-aspiration measures. DW staff Problems: Consultation Date/Type/Reason Admit Date/Time September 07, 2016 at 15:26 Type of Consultation: ID Exam/Review of Systems Vital Signs Vitals Vital Signs Date Time Temp Pulse Resp B/P Pulse Ox O2 Delivery O2 Flow Rate FiO2 09/21/16 12:57 84 20 100 Nasal Cannula 2.0 09/21/16 09:07 148/70 09/21/16 07:58 21 09/21/16 06:56 97.7 Intake and Output 09/20/16 09/20/16 09/21/16 15:00 23:00 07:00 Intake Total 1090 ml 365 ml Balance 1090 ml 365 ml Results Result Diagram: 09/21/16 0500 09/21/16 0500 Results 24 hrs Laboratory Tests Test 09/20/16 17:27 09/20/16 22:02 09/21/16 01:31 09/21/16 05:00 Bedside Glucose 202 200 125 White Blood Count 7.2 Red Blood Count 4.00 L Hemoglobin 11.8 L Hematocrit 36.6 L Mean Corpuscular Volume 91.5 Mean Corpuscular Hemoglobin 29.5 Mean Corpuscular Hemoglobin Concent 32.2 Red Cell Distribution Width 13.3 Platelet Count 181 Mean Platelet Volume 9.5 Neutrophils % 71.2 Lymphocytes % 18.9 Monocytes % 8.6 Eosinophils % 0.8 Basophils % 0.1 Nucleated Red Blood Cells % 0.0 Neutrophils # 5.1 Lymphocytes # 1.4 Monocytes # 0.6 Eosinophils # 0.1 Basophils # 0.0 Nucleated Red Blood Cells # 0.0 Sodium Level 138 Potassium Level 4.5 Chloride Level 98 Carbon Dioxide Level 33 H Anion Gap 12 Blood Urea Nitrogen 21 H Creatinine 0.59 L Glucose Level 135 Calcium Level 9.1 Test 09/21/16 09:03 09/21/16 12:26 Bedside Glucose 106 161 Medications Medications Current Medications Acetaminophen (Tylenol Tab) 650 mg Q6H PRN PO PAIN AND OR ELEVATED TEMP Last administered on 09/17/16 08:48; Admin Dose 650 MG; Start 09/07/16 at 04:00 Ondansetron HCl (Zofran Inj) 4 mg Q6H PRN IV NAUSEA AND/OR VOMITING; Start 03/16 at 05:00 Heparin Sodium (Porcine) (Heparin (5000 Units/0.5 ml)) 5,000 unit BID SC Last administered on 09/21/16 09:21; Admin Dose 5,000 UNIT; Start 09/07/16 at 09:00 Insulin Glargine (Lantus) 10 unit DAILY@08 SC Last administered on 09/21/16 09 :21; Admin Dose 10 UNIT; Start 09/07/16 at 08:00 Diagnostic Test (Pha) (Accu-Chek) 1 ea 02 XX Last administered on 09/17/16 01: 41; Admin Dose 1 EA; Start 09/08/16 at 02:00 Miscellaneous Information 1 ea NOTE XX ; Start 09/07/16 at 06:45 Glucose (Glutose) 15 gm Q15M PRN PO DECREASED GLUCOSE; Start 09/07/16 at 06:45 Glucose (Glutose) 22.5 gm Q15M PRN PO DECREASED GLUCOSE; Start 09/07/16 at 06: 45 Dextrose (D50w Syringe) 25 ml Q15M PRN IV DECREASED GLUCOSE; Start 09/07/16 at 06:45 Dextrose (D50w Syringe) 50 ml Q15M PRN IV DECREASED GLUCOSE; Start 09/07/16 at 06:45 Glucagon (Glucagen) 1 mg Q15M PRN IM DECREASED GLUCOSE; Start 5/11/17 at 06:45 Glucose (Glutose) 15 gm Q15M PRN BUCCAL DECREASED GLUCOSE; Start 09/07/16 at 06 :45 Carbidopa/Levodopa (Sinemet (25/ 100)) 2 tab TID PO Last administered on 12:28; Admin Dose 2 TAB; Start 09/08/16 at 13:00 Polyethylene Glycol (Miralax) 17 gm BID PO Last administered on 09/21/16 09:09 ; Admin Dose 17 GM; Start 09/11/16 at 21:00 Bisacodyl (Dulcolax) 10 mg DAILY PRN PO CONSTIPATION Last administered on 18:28; Admin Dose 10 MG; Start 09/11/16 at 13:30 Insulin Human NPH (Humulin N) 10 unit BID@08,20 SC Last administered on 20:40; Admin Dose 10 UNIT; Start 09/11/16 at 20:00; Status Future Hold Famotidine (Pepcid) 20 mg BID PO Last administered on 09/21/16 09:09; Admin Dose 20 MG; Start 09/17/16 at 21:00 Prednisolone (Prelone (Ped)) 40 mg DAILY PO Last administered on 09/21/16 09: 09; Admin Dose 40 MG; Start 09/18/16 at 09:00 SYLVAIN MENA NP September 21, 2016 13:27
[2016-09-21 19:20] VITALS: BP 96/56; RESP 20
[2016-09-22] MEDS: LEVALBUTEROL (NEB) 0.63 MG/3 ML AMP HHN SCH ×4 (01:22→19:28)
[2016-09-22] MEDS: ACCU-CHEK XX SCH (02:00)
[2016-09-22 05:30] LABS: ADD SCAN DIFF NO
[2016-09-22 05:36] LABS: BASOPHILS % 0.1 % (0.0-2.0); EOSINOPHILS # 0.1 10^3/ul (0.0-0.5); EOSINOPHILS % 1.2 % (0.0-7.0); HEMATOCRIT 36.1 % (42.0-52.0); LYMPHOCYTES # 1.7 10^3/ul (0.8-2.9); LYMPHOCYTES % 21.4 % (15.0-51.0); MEAN CORPUSCULAR HGB CONC 33.2 g/dl (32.0-37.0); MEAN CORPUSCULAR VOLUME 90.3 fl (82.0-101.0); MEAN PLATELET VOLUME 9.5 fl (7.4-10.4); MONOCYTE # 0.7 10^3/ul (0.3-0.9); MONOCYTES % 9.3 % (0.0-11.0); NEUTROPHIL # 5.3 10^3/ul (1.6-7.5); NEUTROPHILS % 67.6 % (39.0-77.0); PLATELET COUNT 172 10^3/UL (140-415); RED CELL DISTRIBUTION WIDTH 13.2 % (11.5-14.5); WHITE BLOOD COUNT 7.8 10^3/ul (4.8-10.8)
[2016-09-22 06:00] LABS: CREATININE 0.58 mg/dl (0.61-1.24)
[2016-09-22 06:01] LABS: CALCIUM 9.4 mg/dl (8.4-10.2)
[2016-09-22 07:29] VITALS: BP 144/65; RESP 18
[2016-09-22] MEDS: INSULIN ASPART [NOVOLOG] 3 ML PEN SC SCH ×4 (08:15→21:00)
[2016-09-22] MEDS: predniSOLONE (3 MG/ML PO SYG) PO SCH (08:58)
[2016-09-22] MEDS: POLYETHYLENE GLYCOL 17 GM PACKET PO SCH ×2 (08:58→21:24)
[2016-09-22] MEDS: CARBIDOPA/LEVODOPA (25/100) TAB PO SCH ×3 (08:58→21:24)
[2016-09-22] MEDS: FAMOTIDINE 20 MG TAB PO SCH ×2 (08:58→21:23)
[2016-09-22] MEDS: HEPARIN 5,000 UNIT/0.5 ML VIAL SC SCH ×2 (09:13→21:41)
[2016-09-22] MEDS: INSULIN GLARGINE [LANtus] 3 ML PEN SC SCH (09:13)
--- NOTE | 2016-09-22 13:56 | CONS ---
Date/Time of Note Date/Time of Note DATE: 09/22/16 TIME: 13:55 Assessment/Plan Assessment/Plan Chief Complaint/Hosp Course SUBJECTIVE: No acute events. no fevers, looks comfortable PHYSICAL EXAMINATION: GENERAL: This is a fragile, elderly man who is in no distress. HEENT: Head atraumatic, normocephalic. Sclerae anicteric. Buccal mucosa dry. NECK: Supple, trachea midline. CHEST: Rise symmetrical. Breath sounds diminished to bases. HEART: S1, S2. ABDOMEN: Soft. Bowel sounds present. EXTREMITIES: Without cyanosis. ASSESSMENT: 1. S/p sepsis with acute on chronic encephalopathy. 2. S/p E coli ESBL urinary tract infection 3. Chronic obstructive pulmonary disease exacerbation with acute tracheobronchitis. Cultures growing Pseudomonas aeruginosa/MRSA. 4. Parkinson's dementia. 5. Diabetes. 6. History of cardiac stents. PLAN: Remains stable. Off antibiotics, continue anti-aspiration measures. DW staff Problems: Consultation Date/Type/Reason Admit Date/Time September 07, 2016 at 15:26 Type of Consultation: ID Exam/Review of Systems Vital Signs Vitals Vital Signs Date Time Temp Pulse Resp B/P Pulse Ox O2 Delivery O2 Flow Rate FiO2 09/22/16 08:15 Nasal Cannula 2.0 09/22/16 07:38 100 09/22/16 07:38 65 14 09/22/16 07:29 98.4 144/65 09/21/16 07:58 21 Intake and Output 09/21/16 09/21/16 09/22/16 15:00 23:00 07:00 Intake Total 100 ml 1120 ml 240 ml Balance 100 ml 1120 ml 240 ml Results Result Diagram: 09/22/16 0512 09/22/16 0512 Results 24 hrs Laboratory Tests Test 09/21/16 17:50 09/21/16 20:45 09/22/16 02:22 09/22/16 05:12 Bedside Glucose 217 196 109 White Blood Count 7.8 Red Blood Count 4.00 L Hemoglobin 12.0 L Hematocrit 36.1 L Mean Corpuscular Volume 90.3 Mean Corpuscular Hemoglobin 30.0 Mean Corpuscular Hemoglobin Concent 33.2 Red Cell Distribution Width 13.2 Platelet Count 172 Mean Platelet Volume 9.5 Neutrophils % 67.6 Lymphocytes % 21.4 Monocytes % 9.3 Eosinophils % 1.2 Basophils % 0.1 Nucleated Red Blood Cells % 0.0 Neutrophils # 5.3 Lymphocytes # 1.7 Monocytes # 0.7 Eosinophils # 0.1 Basophils # 0.0 Nucleated Red Blood Cells # 0.0 Sodium Level 138 Potassium Level 4.0 Chloride Level 97 Carbon Dioxide Level 32 H Anion Gap 13 Blood Urea Nitrogen 26 H Creatinine 0.58 L Glucose Level 129 Calcium Level 9.4 Test 09/22/16 08:56 09/22/16 12:28 Bedside Glucose 124 144 Medications Medications Current Medications Acetaminophen (Tylenol Tab) 650 mg Q6H PRN PO PAIN AND OR ELEVATED TEMP Last administered on 09/17/16 08:48; Admin Dose 650 MG; Start 09/07/16 at 04:00 Ondansetron HCl (Zofran Inj) 4 mg Q6H PRN IV NAUSEA AND/OR VOMITING; Start 03/16 at 05:00 Heparin Sodium (Porcine) (Heparin (5000 Units/0.5 ml)) 5,000 unit BID SC Last administered on 09/22/16 09:13; Admin Dose 5,000 UNIT; Start 09/07/16 at 09:00 Insulin Glargine (Lantus) 10 unit DAILY@08 SC Last administered on 09/22/16 09 :13; Admin Dose 10 UNIT; Start 09/07/16 at 08:00 Diagnostic Test (Pha) (Accu-Chek) 1 ea 02 XX Last administered on 09/17/16 01: 41; Admin Dose 1 EA; Start 09/08/16 at 02:00 Miscellaneous Information 1 ea NOTE XX ; Start 09/07/16 at 06:45 Glucose (Glutose) 15 gm Q15M PRN PO DECREASED GLUCOSE; Start 09/07/16 at 06:45 Glucose (Glutose) 22.5 gm Q15M PRN PO DECREASED GLUCOSE; Start 09/07/16 at 06: 45 Dextrose (D50w Syringe) 25 ml Q15M PRN IV DECREASED GLUCOSE; Start 09/07/16 at 06:45 Dextrose (D50w Syringe) 50 ml Q15M PRN IV DECREASED GLUCOSE; Start 09/07/16 at 06:45 Glucagon (Glucagen) 1 mg Q15M PRN IM DECREASED GLUCOSE; Start 09/07/16 at 06:45 Glucose (Glutose) 15 gm Q15M PRN BUCCAL DECREASED GLUCOSE; Start 09/07/16 at 06 :45 Carbidopa/Levodopa (Sinemet (25/ 100)) 2 tab TID PO Last administered on 12:28; Admin Dose 2 TAB; Start 09/08/16 at 13:00 Polyethylene Glycol (Miralax) 17 gm BID PO Last administered on 09/22/16 08:58 ; Admin Dose 17 GM; Start 09/11/16 at 21:00 Bisacodyl (Dulcolax) 10 mg DAILY PRN PO CONSTIPATION Last administered on 18:28; Admin Dose 10 MG; Start 09/11/16 at 13:30 Insulin Human NPH (Humulin N) 10 unit BID@08,20 SC Last administered on 20:40; Admin Dose 10 UNIT; Start 09/11/16 at 20:00; Status Future Hold Famotidine (Pepcid) 20 mg BID PO Last administered on 09/22/16 08:58; Admin Dose 20 MG; Start 09/17/16 at 21:00 Prednisolone (Prelone (Ped)) 40 mg DAILY PO Last administered on 09/22/16 08: 58; Admin Dose 40 MG; Start 09/18/16 at 09:00 SYLVAIN MENA NP September 22, 2016 13:56
--- NOTE | 2016-09-22 14:48 | PN ---
Date/Time of Note Date/Time of Note DATE: 09/22/16 TIME: 14:44 Assessment/Plan VTE Prophylaxis VTE Prophylaxis Intervention: heparin Lines/Catheters IV C[facility]ter Type (from [facility]): Saline [facility] Urinary Cath still in place: No Assessment/Plan Chief Complaint/Hosp Course Assessment and plan 1. Acute encephalopathy likely secondary to UTI and pneumonia. Improved. Continue to monitor 2. Sepsis secondary to UTI and pneumonia. Improving at present. Continue with ID consult recommendation 3. Pneumonia with pseudomonas aeruginosa and MRSA. Improved 4. UTI with ESBL. Continue with ID recommendation 5. COPD exacerbation. Bronchodilators as needed. No wheezing noted. 6. Parkinson's disease. Continue on Sinemet 7. Diabetes. Continue insulin regimen. Will adjust as needed Disposition plan: Awaiting for patient placement. Discussed again with case supervisor. Discussed plan of care with Dr. Moya Problems: Subjective 24 Hr Interval Summary Free Text/Dictation Resting at this time. No apparent distress Exam/Review of Systems Vital Signs Vitals Vital Signs Date Time Temp Pulse Resp B/P Pulse Ox O2 Delivery O2 Flow Rate FiO2 09/22/16 08:15 Nasal Cannula 2.0 09/22/16 07:38 100 09/22/16 07:38 65 14 09/22/16 07:29 98.4 144/65 09/21/16 07:58 21 Intake and Output 09/21/16 09/21/16 09/22/16 15:00 23:00 07:00 Intake Total 100 ml 1120 ml 240 ml Balance 100 ml 1120 ml 240 ml Exam Constitutional: alert, oriented Head: normocephalic Respiratory: clear to auscultation, normal air movement Cardiovascular: regular rate and rhythm Gastrointestinal: non-tender, soft Musculoskeletal: No nl gait and stance Neurological: nl mental status, nl speech Skin: nl turgor Results Result Diagram: 09/22/16 0512 09/22/16 05 Results 24 hrs Laboratory Tests Test 09/21/16 17:50 09/21/16 20:45 09/22/16 02:22 09/22/16 05:12 Bedside Glucose 217 196 109 White Blood Count 7.8 Red Blood Count 4.00 L Hemoglobin 12.0 L Hematocrit 36.1 L Mean Corpuscular Volume 90.3 Mean Corpuscular Hemoglobin 30.0 Mean Corpuscular Hemoglobin Concent 33.2 Red Cell Distribution Width 13.2 Platelet Count 172 Mean Platelet Volume 9.5 Neutrophils % 67.6 Lymphocytes % 21.4 Monocytes % 9.3 Eosinophils % 1.2 Basophils % 0.1 Nucleated Red Blood Cells % 0.0 Neutrophils # 5.3 Lymphocytes # 1.7 Monocytes # 0.7 Eosinophils # 0.1 Basophils # 0.0 Nucleated Red Blood Cells # 0.0 Sodium Level 138 Potassium Level 4.0 Chloride Level 97 Carbon Dioxide Level 32 H Anion Gap 13 Blood Urea Nitrogen 26 H Creatinine 0.58 L Glucose Level 129 Calcium Level 9.4 Test 09/22/16 08:56 09/22/16 12:28 Bedside Glucose 124 144 Medications Medications Current Medications Acetaminophen (Tylenol Tab) 650 mg Q6H PRN PO PAIN AND OR ELEVATED TEMP Last administered on 09/17/16 08:48; Admin Dose 650 MG; Start 09/07/16 at 04:00 Ondansetron HCl (Zofran Inj) 4 mg Q6H PRN IV NAUSEA AND/OR VOMITING; Start 03/16 at 05:00 Heparin Sodium (Porcine) (Heparin (5000 Units/0.5 ml)) 5,000 unit BID SC Last administered on 09/22/16 09:13; Admin Dose 5,000 UNIT; Start 09/07/16 at 09:00 Insulin Glargine (Lantus) 10 unit DAILY@08 SC Last administered on 09/22/16 09 :13; Admin Dose 10 UNIT; Start 09/07/16 at 08:00 Diagnostic Test (Pha) (Accu-Chek) 1 ea 02 XX Last administered on 09/17/16 01: 41; Admin Dose 1 EA; Start 09/08/16 at 02:00 Miscellaneous Information 1 ea NOTE XX ; Start 09/07/16 at 06:45 Glucose (Glutose) 15 gm Q15M PRN PO DECREASED GLUCOSE; Start 09/07/16 at 06:45 Glucose (Glutose) 22.5 gm Q15M PRN PO DECREASED GLUCOSE; Start 09/07/16 at 06: 45 Dextrose (D50w Syringe) 25 ml Q15M PRN IV DECREASED GLUCOSE; Start 09/07/16 at 06:45 Dextrose (D50w Syringe) 50 ml Q15M PRN IV DECREASED GLUCOSE; Start 09/07/16 at 06:45 Glucagon (Glucagen) 1 mg Q15M PRN IM DECREASED GLUCOSE; Start 09/07/16 at 06:45 Glucose (Glutose) 15 gm Q15M PRN BUCCAL DECREASED GLUCOSE; Start 09/07/16 at 06 :45 Carbidopa/Levodopa (Sinemet (25/ 100)) 2 tab TID PO Last administered on 12:28; Admin Dose 2 TAB; Start 09/08/16 at 13:00 Polyethylene Glycol (Miralax) 17 gm BID PO Last administered on 09/22/16 08:58 ; Admin Dose 17 GM; Start 09/11/16 at 21:00 Bisacodyl (Dulcolax) 10 mg DAILY PRN PO CONSTIPATION Last administered on 18:28; Admin Dose 10 MG; Start 09/11/16 at 13:30 Insulin Human NPH (Humulin N) 10 unit BID@08,20 SC Last administered on 20:40; Admin Dose 10 UNIT; Start 09/11/16 at 20:00; Status Future Hold Famotidine (Pepcid) 20 mg BID PO Last administered on 09/22/16 08:58; Admin Dose 20 MG; Start 09/17/16 at 21:00 Prednisolone (Prelone (Ped)) 40 mg DAILY PO Last administered on 09/22/16 08: 58; Admin Dose 40 MG; Start 09/18/16 at 09:00 ASHLEY FONG September 22, 2016 14:48
[2016-09-22 19:25] VITALS: BP 155/74; RESP 20
[2016-09-23] MEDS: LEVALBUTEROL (NEB) 0.63 MG/3 ML AMP HHN SCH ×4 (01:00→19:58)
[2016-09-23] MEDS: ACCU-CHEK XX SCH (01:46)
[2016-09-23 05:50] LABS: ADD SCAN DIFF NO
[2016-09-23 05:54] LABS: BASOPHILS % 0.1 % (0.0-2.0); EOSINOPHILS # 0.1 10^3/ul (0.0-0.5); EOSINOPHILS % 0.9 % (0.0-7.0); HEMATOCRIT 35.5 % (42.0-52.0); HEMOGLOBIN 11.8 g/dl (14.0-18.0); LYMPHOCYTES # 1.2 10^3/ul (0.8-2.9); LYMPHOCYTES % 16.7 % (15.0-51.0); MEAN CORPUSCULAR HEMOGLOBIN 30.1 pg (29.0-33.0); MEAN CORPUSCULAR HGB CONC 33.2 g/dl (32.0-37.0); MEAN CORPUSCULAR VOLUME 90.6 fl (82.0-101.0); MEAN PLATELET VOLUME 9.7 fl (7.4-10.4); MONOCYTE # 0.5 10^3/ul (0.3-0.9); MONOCYTES % 7.7 % (0.0-11.0); NEUTROPHIL # 5.1 10^3/ul (1.6-7.5); NEUTROPHILS % 74.2 % (39.0-77.0); PLATELET COUNT 178 10^3/UL (140-415); RED BLOOD COUNT 3.92 10^6/ul (4.70-6.10); RED CELL DISTRIBUTION WIDTH 13.2 % (11.5-14.5); WHITE BLOOD COUNT 6.9 10^3/ul (4.8-10.8)
[2016-09-23 06:24] LABS: CALCIUM 9.5 mg/dl (8.4-10.2); CREATININE 0.73 mg/dl (0.61-1.24); POTASSIUM 4.2 mmol/L (3.5-5.1)
[2016-09-23 07:27] VITALS: BP 164/74; RESP 18
[2016-09-23] MEDS: INSULIN ASPART [NOVOLOG] 3 ML PEN SC SCH ×4 (08:04→21:50)
[2016-09-23] MEDS: INSULIN GLARGINE [LANtus] 3 ML PEN SC SCH (08:15)
[2016-09-23] MEDS: CARBIDOPA/LEVODOPA (25/100) TAB PO SCH ×3 (09:24→21:25)
[2016-09-23] MEDS: FAMOTIDINE 20 MG TAB PO SCH ×2 (09:24→21:25)
[2016-09-23] MEDS: predniSOLONE (3 MG/ML PO SYG) PO SCH (09:24)
[2016-09-23] MEDS: POLYETHYLENE GLYCOL 17 GM PACKET PO SCH ×2 (09:24→21:25)
[2016-09-23] MEDS: HEPARIN 5,000 UNIT/0.5 ML VIAL SC SCH ×2 (09:33→21:51)
[2016-09-23] MEDS: IPRATROPIUM (NEB) 0.5 MG/2.5 ML AMP HHN PRN (14:21)
--- NOTE | 2016-09-23 15:23 | PN ---
Date/Time of Note Date/Time of Note DATE: 09/23/16 TIME: 15:20 Assessment/Plan VTE Prophylaxis VTE Prophylaxis Intervention: heparin Lines/Catheters IV [facility]ter Type [facility]from [facility] Saline Lock Urinary Cath still in place: No Assessment/Plan Chief Complaint/Hosp Course Assessment and plan 1. Acute encephalopathy likely secondary to UTI and pneumonia. Stable. 2. Sepsis secondary to UTI and pneumonia. Improving at present. Continue with ID consult recommendation 3. Pneumonia with pseudomonas aeruginosa and MRSA. Improved 4. UTI with ESBL. Continue with ID recommendation 5. COPD exacerbation. Bronchodilators as needed. No wheezing noted. Trial off O2 6. Parkinson's disease. Continue on Sinemet 7. Diabetes. Continue insulin regimen. Will adjust as needed Disposition plan: remains off abx. awaiting placement Discussed plan of care with Dr. Moya Problems: Subjective 24 Hr Interval Summary Free Text/Dictation no s/s of distress. calm at this time. family at bedside Exam/Review of Systems Vital Signs Vitals Vital Signs Date Time Temp Pulse Resp B/P Pulse Ox O2 Delivery O2 Flow Rate FiO2 09/23/16 14:22 75 18 97 Nasal Cannula 2.0 09/23/16 07:27 97.7 164/74 09/21/16 07:58 21 Intake and Output 09/22/16 09/22/16 09/23/16 15:00 23:00 07:00 Intake Total 740 ml 360 ml Balance 740 ml 360 ml Exam Constitutional: alert, oriented Head: normocephalic Respiratory: clear to auscultation, normal air movement Cardiovascular: regular rate and rhythm Gastrointestinal: non-tender, soft Musculoskeletal: No nl gait and stance Neurological: alert to person, place Skin: nl turgor Results Result Diagram: 09/23/16 0450 09/23/16 0450 Results 24 hrs Laboratory Tests Test 09/22/16 17:38 09/22/16 21:21 09/23/16 04:50 09/23/16 08:03 Bedside Glucose 245 H 169 108 White Blood Count 6.9 Red Blood Count 3.92 L Hemoglobin 11.8 L Hematocrit 35.5 L Mean Corpuscular Volume 90.6 Mean Corpuscular Hemoglobin 30.1 Mean Corpuscular Hemoglobin Concent 33.2 Red Cell Distribution Width 13.2 Platelet Count 178 Mean Platelet Volume 9.7 Neutrophils % 74.2 Lymphocytes % 16.7 Monocytes % 7.7 Eosinophils % 0.9 Basophils % 0.1 Nucleated Red Blood Cells % 0.0 Neutrophils # 5.1 Lymphocytes # 1.2 Monocytes # 0.5 Eosinophils # 0.1 Basophils # 0.0 Nucleated Red Blood Cells # 0.0 Sodium Level 134 L Potassium Level 4.2 Chloride Level 98 Carbon Dioxide Level 31 Anion Gap 9 Blood Urea Nitrogen 26 H Creatinine 0.73 Glucose Level 130 Calcium Level 9.5 Test 09/23/16 12:15 Bedside Glucose 210 Medications Medications Current Medications Acetaminophen (Tylenol Tab) 650 mg Q6H PRN PO PAIN AND OR ELEVATED TEMP Last administered on 09/17/16 08:48; Admin Dose 650 MG; Start 09/07/16 at 04:00 Ondansetron HCl (Zofran Inj) 4 mg Q6H PRN IV NAUSEA AND/OR VOMITING; Start 03/16 at 05:00 Heparin Sodium (Porcine) (Heparin (5000 Units/0.5 ml)) 5,000 unit BID SC Last administered on 09/23/16 09:33; Admin Dose 5,000 UNIT; Start 09/07/16 at 09:00 Insulin Glargine (Lantus) 10 unit DAILY@08 SC Last administered on 09/23/16 08 :15; Admin Dose 10 UNIT; Start 09/07/16 at 08:00 Diagnostic Test (Pha) (Accu-Chek) 1 ea 02 XX Last administered on 09/17/16 01: 41; Admin Dose 1 EA; Start 09/08/16 at 02:00 Miscellaneous Information 1 ea NOTE XX ; Start 09/07/16 at 06:45 Glucose (Glutose) 15 gm Q15M PRN PO DECREASED GLUCOSE; Start 09/07/16 at 06:45 Glucose (Glutose) 22.5 gm Q15M PRN PO DECREASED GLUCOSE; Start 09/07/16 at 06: 45 Dextrose (D50w Syringe) 25 ml Q15M PRN IV DECREASED GLUCOSE; Start 09/07/16 at 06:45 Dextrose (D50w Syringe) 50 ml Q15M PRN IV DECREASED GLUCOSE; Start 09/07/16 at 06:45 Glucagon (Glucagen) 1 mg Q15M PRN IM DECREASED GLUCOSE; Start 09/07/16 at 06:45 Glucose (Glutose) 15 gm Q15M PRN BUCCAL DECREASED GLUCOSE; Start 09/07/16 at 06 :45 Carbidopa/Levodopa (Sinemet (25/ 100)) 2 tab TID PO Last administered on 12:19; Admin Dose 2 TAB; Start 09/08/16 at 13:00 Polyethylene Glycol (Miralax) 17 gm BID PO Last administered on 09/23/16 09:24 ; Admin Dose 17 GM; Start 09/11/16 at 21:00 Bisacodyl (Dulcolax) 10 mg DAILY PRN PO CONSTIPATION Last administered on 18:28; Admin Dose 10 MG; Start 09/11/16 at 13:30 Insulin Human NPH (Humulin N) 10 unit BID@08,20 SC Last administered on 20:40; Admin Dose 10 UNIT; Start 09/11/16 at 20:00; Status Future Hold Famotidine (Pepcid) 20 mg BID PO Last administered on 09/23/16 09:24; Admin Dose 20 MG; Start 09/17/16 at 21:00 Prednisolone (Prelone (Ped)) 40 mg DAILY PO Last administered on 09/23/16 09: 24; Admin Dose 40 MG; Start 09/18/16 at 09:00 ASHLEY FONG September 23, 2016 15:23
[2016-09-23 19:30] VITALS: BP 143/69; RESP 18
[2016-09-24] MEDS: LEVALBUTEROL (NEB) 0.63 MG/3 ML AMP HHN SCH ×4 (01:44→19:35)
[2016-09-24] MEDS: ACCU-CHEK XX SCH (02:07)
[2016-09-24 07:19] VITALS: BP 138/67; RESP 18
[2016-09-24] MEDS: INSULIN ASPART [NOVOLOG] 3 ML PEN SC SCH ×4 (08:15→21:23)
[2016-09-24] MEDS: FAMOTIDINE 20 MG TAB PO SCH ×2 (08:39→21:16)
[2016-09-24] MEDS: POLYETHYLENE GLYCOL 17 GM PACKET PO SCH ×2 (08:39→21:16)
[2016-09-24] MEDS: CARBIDOPA/LEVODOPA (25/100) TAB PO SCH ×3 (08:40→21:16)
[2016-09-24] MEDS: predniSOLONE (3 MG/ML PO SYG) PO SCH (08:40)
[2016-09-24] MEDS: HEPARIN 5,000 UNIT/0.5 ML VIAL SC SCH ×2 (08:49→21:23)
[2016-09-24] MEDS: INSULIN GLARGINE [LANtus] 3 ML PEN SC SCH (08:50)
--- NOTE | 2016-09-24 15:39 | PN ---
Date/Time of Note Date/Time of Note DATE: 09/24/16 TIME: 15:38 Assessment/Plan VTE Prophylaxis VTE Prophylaxis Intervention: heparin Lines/Catheters IV Catheter Type (from Nrsg): Saline Lock Urinary Cath still in place: No Assessment/Plan Chief Complaint/Hosp Course Assessment and plan 1. Acute encephalopathy likely secondary to UTI and pneumonia. Stable. 2. Sepsis secondary to UTI and pneumonia. Improving at present. Continue with ID consult recommendation 3. Pneumonia with pseudomonas aeruginosa and MRSA. Improved 4. UTI with ESBL. Continue with ID recommendation 5. COPD exacerbation. Bronchodilators as needed. No wheezing noted. Trial off O2 6. Parkinson's disease. Continue on Sinemet 7. Diabetes. Continue insulin regimen. Will adjust as needed Disposition plan: awaiting placement. check am labs Discussed plan of care with Dr. Moya Problems: Subjective 24 Hr Interval Summary Free Text/Dictation resting at this time. no s/s of distress Exam/Review of Systems Vital Signs Vitals Vital Signs Date Time Temp Pulse Resp B/P Pulse Ox O2 Delivery O2 Flow Rate FiO2 09/24/16 13:39 70 16 98 Nasal Cannula 2.0 09/24/16 07:19 97.9 138/67 09/21/16 07:58 21 Intake and Output 09/23/16 09/23/16 09/24/16 15:00 23:00 07:00 Intake Total 1040 ml 440 ml Balance 1040 ml 440 ml Exam Constitutional: alert, oriented Head: normocephalic Respiratory: clear to auscultation, normal air movement Cardiovascular: regular rate and rhythm Gastrointestinal: non-tender, soft Musculoskeletal: No nl gait and stance Neurological: alert to person, place Skin: nl turgor Results Result Diagram: 09/23/16 0450 09/23/16 0450 Results 24 hrs Laboratory Tests Test 09/23/16 17:34 09/23/16 21:24 09/24/16 02:05 09/24/16 08:05 Bedside Glucose 177 210 131 115 Test 09/24/16 12:15 Bedside Glucose 178 Medications Medications Current Medications Acetaminophen (Tylenol Tab) 650 mg Q6H PRN PO PAIN AND OR ELEVATED TEMP Last administered on 09/17/16t 08:48; Admin Dose 650 MG; Start 09/07/16 at 04:00 Ondansetron HCl (Zofran Inj) 4 mg Q6H PRN IV NAUSEA AND/OR VOMITING; Start 03/16 at 05:00 Heparin Sodium (Porcine) (Heparin (5000 Units/0.5 ml)) 5,000 unit BID SC Last administered on 09/24/16 08:49; Admin Dose 5,000 UNIT; Start 09/07/16 at 09:00 Insulin Glargine (Lantus) 10 unit DAILY@08 SC Last administered on 09/24/16 08 :50; Admin Dose 10 UNIT; Start 09/07/16 at 08:00 Diagnostic Test (Pha) (Accu-Chek) 1 ea 02 XX Last administered on 09/24/16 02: 07; Admin Dose 1 EA; Start 09/08/16 at 02:00 Miscellaneous Information 1 ea NOTE XX ; Start 09/07/16 at 06:45 Glucose (Glutose) 15 gm Q15M PRN PO DECREASED GLUCOSE; Start 09/07/16 at 06:45 Glucose (Glutose) 22.5 gm Q15M PRN PO DECREASED GLUCOSE; Start 09/07/16 at 06: 45 Dextrose (D50w Syringe) 25 ml Q15M PRN IV DECREASED GLUCOSE; Start 09/07/16 at 06:45 Dextrose (D50w Syringe) 50 ml Q15M PRN IV DECREASED GLUCOSE; Start 09/07/16 at 06:45 Glucagon (Glucagen) 1 mg Q15M PRN IM DECREASED GLUCOSE; Start 09/07/16 at 06:45 Glucose (Glutose) 15 gm Q15M PRN BUCCAL DECREASED GLUCOSE; Start 09/07/16 at 06 :45 Carbidopa/Levodopa (Sinemet (25/ 100)) 2 tab TID PO Last administered on 12:21; Admin Dose 2 TAB; Start 09/08/16 at 13:00 Polyethylene Glycol (Miralax) 17 gm BID PO Last administered on 09/24/16 08:39 ; Admin Dose 17 GM; Start 09/11/16 at 21:00 Bisacodyl (Dulcolax) 10 mg DAILY PRN PO CONSTIPATION Last administered on 18:28; Admin Dose 10 MG; Start 09/11/16 at 13:30 Insulin Human NPH (Humulin N) 10 unit BID@08,20 SC Last administered on 20:40; Admin Dose 10 UNIT; Start 09/11/16 at 20:00; Status Future Hold Famotidine (Pepcid) 20 mg BID PO Last administered on 09/24/16 08:39; Admin Dose 20 MG; Start 09/17/16 at 21:00 Prednisolone (Prelone (Ped)) 40 mg DAILY PO Last administered on 09/24/16 08: 40; Admin Dose 40 MG; Start 09/18/16 at 09:00 ASHLEY FONG September 24, 2016 15:39
[2016-09-24 19:34] VITALS: BP 120/63; RESP 20
[2016-09-25] MEDS: LEVALBUTEROL (NEB) 0.63 MG/3 ML AMP HHN SCH ×4 (01:27→20:40)
[2016-09-25] MEDS: ACCU-CHEK XX SCH (02:06)
[2016-09-25 05:18] LABS: ADD SCAN DIFF NO
[2016-09-25 05:28] LABS: BASOPHILS % 0.1 % (0.0-2.0); EOSINOPHILS # 0.1 10^3/ul (0.0-0.5); EOSINOPHILS % 1.2 % (0.0-7.0); HEMATOCRIT 37.4 % (42.0-52.0); HEMOGLOBIN 12.3 g/dl (14.0-18.0); LYMPHOCYTES # 1.7 10^3/ul (0.8-2.9); LYMPHOCYTES % 21.3 % (15.0-51.0); MEAN CORPUSCULAR HEMOGLOBIN 29.8 pg (29.0-33.0); MEAN CORPUSCULAR HGB CONC 32.9 g/dl (32.0-37.0); MEAN CORPUSCULAR VOLUME 90.6 fl (82.0-101.0); MEAN PLATELET VOLUME 9.7 fl (7.4-10.4); MONOCYTE # 0.6 10^3/ul (0.3-0.9); NEUTROPHIL # 5.4 10^3/ul (1.6-7.5); NEUTROPHILS % 68.9 % (39.0-77.0); PLATELET COUNT 172 10^3/UL (140-415); RED BLOOD COUNT 4.13 10^6/ul (4.70-6.10); RED CELL DISTRIBUTION WIDTH 13.4 % (11.5-14.5); WHITE BLOOD COUNT 7.8 10^3/ul (4.8-10.8)
[2016-09-25 05:57] LABS: CALCIUM 9.7 mg/dl (8.4-10.2); CREATININE 0.63 mg/dl (0.61-1.24); POTASSIUM 4.3 mmol/L (3.5-5.1)
[2016-09-25 07:24] VITALS: BP 122/59; RESP 18
[2016-09-25] MEDS: INSULIN ASPART [NOVOLOG] 3 ML PEN SC SCH ×4 (08:15→20:26)
[2016-09-25] MEDS: FAMOTIDINE 20 MG TAB PO SCH ×2 (08:21→20:19)
[2016-09-25] MEDS: POLYETHYLENE GLYCOL 17 GM PACKET PO SCH ×2 (08:21→20:18)
[2016-09-25] MEDS: CARBIDOPA/LEVODOPA (25/100) TAB PO SCH ×3 (08:21→20:18)
[2016-09-25] MEDS: predniSOLONE (3 MG/ML PO SYG) PO SCH (08:28)
[2016-09-25] MEDS: INSULIN GLARGINE [LANtus] 3 ML PEN SC SCH (08:32)
[2016-09-25] MEDS: HEPARIN 5,000 UNIT/0.5 ML VIAL SC SCH ×2 (08:32→20:20)
--- NOTE | 2016-09-25 16:54 | PN ---
Date/Time of Note Date/Time of Note DATE: 09/25/16 TIME: 16:50 Assessment/Plan VTE Prophylaxis VTE Prophylaxis Intervention: heparin Lines/Catheters IV [facility] Saline [facility] Urinary Cath still in place: No Assessment/Plan Chief Complaint/Hosp Course 1. Chronic obstructive pulmonary disease exacerbation. Continue inhaled bronchodilators. Continue the patient on tapering dose of steroids. 2. Sepsis with underlying aspiration pneumonia and urinary tract infection. Status post antibiotics. No evidence of any septic shock. 3. Escherichia coli extended-spectrum beta-lactamase urinary tract infection. S/P antibiotics as per infectious diseases. 4. Parkinson disease. Continue anti-parkinsonian medications. 5. Type 2 diabetes mellitus. Continue insulin regimen. Hemoglobin A1c 6.5. 6. Normocytic normochromic anemia, most probably anemia of chronic disease. Iron panel showing low TIBC and low iron saturation. Continue iron supplements. 7. Deconditioning. Status post evaluation by physical therapy. Physical therapy recommended longterm facility placement. 8. Fluid, electrolytes and nutrition. Carbohydrate controlled diet. 9. Deep venous thrombosis prophylaxis. Subcutaneous heparin. 10. Gastrointestinal prophylaxis. Histamine 2 receptor blockers. PLAN: Continue inhaled bronchodilators. Await placement. Case discussed with Dr. Thomas. Problems: Subjective 24 Hr Interval Summary Free Text/Dictation The patient remains afebrile. Awaiting placement. Exam/Review of Systems Vital Signs Vitals Vital Signs Date Time Temp Pulse Resp B/P Pulse Ox O2 Delivery O2 Flow Rate FiO2 09/25/16 14:33 17 96 21 09/25/16 07:25 83 09/25/16 07:24 98.2 122/59 09/25/16 01:26 1.0 09/24/16 20:00 Nasal Cannula Intake and Output 09/24/16 09/24/16 09/25/16 14:59 22:59 06:59 Intake Total 1120 ml 200 ml Balance 1120 ml 200 ml Exam GENERAL: This is a frail-looking male lying in bed in mild respiratory distress. HEENT: Head normocephalic and atraumatic. Eyes: Anicteric sclerae. Conjunctivae clear. ENT: Nasal septum is midline. Oral mucosa is dry. NECK: Supple. No JVD noticed. RESPIRATORY: Bilaterally diminished breath sounds. Fine rales heard especially on the right side. Use of accessory muscles of respiration. CARDIAC: Regular rate and rhythm. S1 and S2 heard. Grade II/ systolic ejection murmur. ABDOMEN: Soft, nontender and nondistended. Bowel sounds positive in all 4 quadrants. GENITOURINARY: Deferred. EXTREMITIES: No cyanosis, no clubbing. Peripheral pulses are palpable. NEUROLOGIC: The patient has underlying Parkinsonian tremors of bilateral upper extremities. Muscle wasting of all 4 extremities. The patient is awake and alert and oriented to self and place. Results Result Diagram: 09/25/16 0458 09/25/16 0458 Results 24 hrs Laboratory Tests Test 09/24/16 17:23 09/24/16 21:15 09/25/16 02:02 09/25/16 04:58 Bedside Glucose 159 196 121 White Blood Count 7.8 Red Blood Count 4.13 L Hemoglobin 12.3 L Hematocrit 37.4 L Mean Corpuscular Volume 90.6 Mean Corpuscular Hemoglobin 29.8 Mean Corpuscular Hemoglobin Concent 32.9 Red Cell Distribution Width 13.4 Platelet Count 172 Mean Platelet Volume 9.7 Neutrophils % 68.9 Lymphocytes % 21.3 Monocytes % 8.0 Eosinophils % 1.2 Basophils % 0.1 Nucleated Red Blood Cells % 0.0 Neutrophils # 5.4 Lymphocytes # 1.7 Monocytes # 0.6 Eosinophils # 0.1 Basophils # 0.0 Nucleated Red Blood Cells # 0.0 Sodium Level 139 Potassium Level 4.3 Chloride Level 98 Carbon Dioxide Level 31 Anion Gap 14 Blood Urea Nitrogen 27 H Creatinine 0.63 Glucose Level 124 Calcium Level 9.7 Test 09/25/16 08:17 09/25/16 12:18 Bedside Glucose 107 165 Medications Medications Current Medications Acetaminophen (Tylenol Tab) 650 mg Q6H PRN PO PAIN AND OR ELEVATED TEMP Last administered on 09/17/16 08:48; Admin Dose 650 MG; Start 09/07/16 at 04:00 Ondansetron HCl (Zofran Inj) 4 mg Q6H PRN IV NAUSEA AND/OR VOMITING; Start 03/16 at 05:00 Heparin Sodium (Porcine) (Heparin (5000 Units/0.5 ml)) 5,000 unit BID SC Last administered on 09/25/16 08:32; Admin Dose 5,000 UNIT; Start 09/07/16 at 09:00 Insulin Glargine (Lantus) 10 unit DAILY@08 SC Last administered on 09/25/16 08 :32; Admin Dose 10 UNIT; Start 09/07/16 at 08:00 Diagnostic Test (Pha) (Accu-Chek) 1 ea 02 XX Last administered on 09/25/16 02: 06; Admin Dose 1 EA; Start 09/08/16 at 02:00 Miscellaneous Information 1 ea NOTE XX ; Start 09/07/16 at 06:45 Glucose (Glutose) 15 gm Q15M PRN PO DECREASED GLUCOSE; Start 09/07/16 at 06:45 Glucose (Glutose) 22.5 gm Q15M PRN PO DECREASED GLUCOSE; Start 09/07/16 at 06: 45 Dextrose (D50w Syringe) 25 ml Q15M PRN IV DECREASED GLUCOSE; Start 09/07/16 at 06:45 Dextrose (D50w Syringe) 50 ml Q15M PRN IV DECREASED GLUCOSE; Start 09/07/16 at 06:45 Glucagon (Glucagen) 1 mg Q15M PRN IM DECREASED GLUCOSE; Start 09/07/16 at 06:45 Glucose (Glutose) 15 gm Q15M PRN BUCCAL DECREASED GLUCOSE; Start 09/07/16 at 06 :45 Carbidopa/Levodopa (Sinemet (25/ 100)) 2 tab TID PO Last administered on 12:19; Admin Dose 2 TAB; Start 09/08/16 at 13:00 Polyethylene Glycol (Miralax) 17 gm BID PO Last administered on 09/25/16 08:21 ; Admin Dose 17 GM; Start 09/11/16 at 21:00 Bisacodyl (Dulcolax) 10 mg DAILY PRN PO CONSTIPATION Last administered on 18:28; Admin Dose 10 MG; Start 09/11/16 at 13:30 Insulin Human NPH (Humulin N) 10 unit BID@08,20 SC Last administered on 20:40; Admin Dose 10 UNIT; Start 09/11/16 at 20:00; Status Future Hold Famotidine (Pepcid) 20 mg BID PO Last administered on 09/25/16 08:21; Admin Dose 20 MG; Start 09/17/16 at 21:00 Prednisolone (Prelone (Ped)) 40 mg DAILY PO Last administered on 09/25/16 08: 28; Admin Dose 40 MG; Start 09/18/16 at 09:00 MAMTA SAEZ NP September 25, 2016 16:54 MAMTA SAEZ NP September 25, 2016 16:54
[2016-09-25 19:15] VITALS: BP 120/60; RESP 20
[2016-09-25] MEDS: FERROUS SULFATE 60 MG/ML 5ML CUP PO SCH (20:18)
[2016-09-26] MEDS: LEVALBUTEROL (NEB) 0.63 MG/3 ML AMP HHN SCH ×4 (01:44→19:29)
[2016-09-26] MEDS: ACCU-CHEK XX SCH (02:00)
[2016-09-26 05:10] LABS: ADD SCAN DIFF NO
[2016-09-26 05:18] LABS: BASOPHILS % 0.2 % (0.0-2.0); EOSINOPHILS # 0.1 10^3/ul (0.0-0.5); EOSINOPHILS % 1.1 % (0.0-7.0); HEMATOCRIT 36.6 % (42.0-52.0); HEMOGLOBIN 12.2 g/dl (14.0-18.0); LYMPHOCYTES # 1.5 10^3/ul (0.8-2.9); LYMPHOCYTES % 22.7 % (15.0-51.0); MEAN CORPUSCULAR HEMOGLOBIN 29.8 pg (29.0-33.0); MEAN CORPUSCULAR HGB CONC 33.3 g/dl (32.0-37.0); MEAN CORPUSCULAR VOLUME 89.5 fl (82.0-101.0); MEAN PLATELET VOLUME 9.7 fl (7.4-10.4); MONOCYTE # 0.5 10^3/ul (0.3-0.9); MONOCYTES % 7.8 % (0.0-11.0); NEUTROPHIL # 4.5 10^3/ul (1.6-7.5); NEUTROPHILS % 67.6 % (39.0-77.0); PLATELET COUNT 164 10^3/UL (140-415); RED BLOOD COUNT 4.09 10^6/ul (4.70-6.10); RED CELL DISTRIBUTION WIDTH 13.5 % (11.5-14.5); WHITE BLOOD COUNT 6.6 10^3/ul (4.8-10.8)
[2016-09-26 05:31] LABS: CALCIUM 9.7 mg/dl (8.4-10.2); CREATININE 0.68 mg/dl (0.61-1.24); POTASSIUM 4.1 mmol/L (3.5-5.1)
[2016-09-26 05:32] LABS: MAGNESIUM 2.1 mg/dl (1.7-2.5); PHOSPHORUS 4.6 mg/dl (2.5-4.9)
[2016-09-26 07:48] VITALS: BP 116/59; RESP 18
[2016-09-26] MEDS: INSULIN ASPART [NOVOLOG] 3 ML PEN SC SCH ×6 (08:10→20:51)
[2016-09-26] MEDS: CARBIDOPA/LEVODOPA (25/100) TAB PO SCH ×3 (08:14→20:48)
[2016-09-26] MEDS: POLYETHYLENE GLYCOL 17 GM PACKET PO SCH ×2 (08:14→21:00)
[2016-09-26] MEDS: FERROUS SULFATE 60 MG/ML 5ML CUP PO SCH ×2 (08:14→20:48)
[2016-09-26] MEDS: FAMOTIDINE 20 MG TAB PO SCH ×2 (08:15→20:48)
[2016-09-26] MEDS: predniSOLONE (3 MG/ML PO SYG) PO SCH (08:15)
[2016-09-26] MEDS: INSULIN GLARGINE [LANtus] 3 ML PEN SC SCH (08:24)
[2016-09-26] MEDS: HEPARIN 5,000 UNIT/0.5 ML VIAL SC SCH ×2 (08:24→20:51)
--- NOTE | 2016-09-26 08:54 | PN ---
Date/Time of Note Date/Time of Note DATE: 09/26/16 TIME: 08:51 Assessment/Plan VTE Prophylaxis VTE Prophylaxis Intervention: heparin Lines/Catheters IV [facility]from [facility] Saline Lock Urinary Cath still in place: No Assessment/Plan Chief Complaint/Hosp Course 1. Chronic obstructive pulmonary disease exacerbation. Continue inhaled bronchodilators. Continue the patient on tapering dose of steroids. 2. Sepsis with underlying aspiration pneumonia and urinary tract infection. Status post antibiotics. No evidence of any septic shock. 3. Escherichia coli extended-spectrum beta-lactamase urinary tract infection. S/P antibiotics as per infectious diseases. 4. Parkinson disease. Continue anti-parkinsonian medications. 5. Type 2 diabetes mellitus. Continue insulin regimen. Hemoglobin A1c 6.5. 6. Normocytic normochromic anemia, most probably anemia of chronic disease. Iron panel showing low TIBC and low iron saturation. Continue iron supplements. 7. Deconditioning. Status post evaluation by physical therapy. Physical therapy recommended care home facility placement. 8. Fluid, electrolytes and nutrition. Carbohydrate controlled diet. 9. Deep venous thrombosis prophylaxis. Subcutaneous heparin. 10. Gastrointestinal prophylaxis. Histamine 2 receptor blockers. PLAN: Continue inhaled bronchodilators. Await placement. Case discussed with Dr. Thomas. Problems: Subjective 24 Hr Interval Summary Free Text/Dictation No changes in status. Awaiting placement. Exam/Review of Systems Vital Signs Vitals Vital Signs Date Time Temp Pulse Resp B/P Pulse Ox O2 Delivery O2 Flow Rate FiO2 09/26/16 07:48 98.1 90 18 116/59 97 09/26/16 07:34 21 09/25/16 01:26 1.0 09/24/16 20:00 Nasal Cannula Intake and Output 09/25/16 09/25/16 09/26/16 15:00 23:00 07:00 Intake Total 840 ml Balance 840 ml Exam GENERAL: This is a frail-looking male lying in bed in mild respiratory distress. HEENT: Head normocephalic and atraumatic. Eyes: Anicteric sclerae. Conjunctivae clear. ENT: Nasal septum is midline. Oral mucosa is dry. NECK: Supple. No JVD noticed. RESPIRATORY: Bilaterally diminished breath sounds. Fine rales heard especially on the right side. Use of accessory muscles of respiration. CARDIAC: Regular rate and rhythm. S1 and S2 heard. Grade II/ systolic ejection murmur. ABDOMEN: Soft, nontender and nondistended. Bowel sounds positive in all 4 quadrants. GENITOURINARY: Deferred. EXTREMITIES: No cyanosis, no clubbing. Peripheral pulses are palpable. NEUROLOGIC: The patient has underlying Parkinsonian tremors of bilateral upper extremities. Muscle wasting of all 4 extremities. The patient is awake and alert and oriented to self and place. Results Result Diagram: 09/26/16 0452 09/26/16 0452 Results 24 hrs Laboratory Tests Test 09/25/16 12:18 09/25/16 17:25 09/25/16 20:17 09/26/16 01:20 Bedside Glucose 165 190 216 99 Test 09/26/16 04:52 09/26/16 08:09 White Blood Count 6.6 Red Blood Count 4.09 L Hemoglobin 12.2 L Hematocrit 36.6 L Mean Corpuscular Volume 89.5 Mean Corpuscular Hemoglobin 29.8 Mean Corpuscular Hemoglobin Concent 33.3 Red Cell Distribution Width 13.5 Platelet Count 164 Mean Platelet Volume 9.7 Neutrophils % 67.6 Lymphocytes % 22.7 Monocytes % 7.8 Eosinophils % 1.1 Basophils % 0.2 Nucleated Red Blood Cells % 0.0 Neutrophils # 4.5 Lymphocytes # 1.5 Monocytes # 0.5 Eosinophils # 0.1 Basophils # 0.0 Nucleated Red Blood Cells # 0.0 Sodium Level 134 L Potassium Level 4.1 Chloride Level 99 Carbon Dioxide Level 30 Anion Gap 9 # Blood Urea Nitrogen 25 H Creatinine 0.68 Glucose Level 99 Calcium Level 9.7 Phosphorus Level 4.6 Magnesium Level 2.1 Bedside Glucose 94 Medications Medications Current Medications Acetaminophen (Tylenol Tab) 650 mg Q6H PRN PO PAIN AND OR ELEVATED TEMP Last administered on 09/17/16 08:48; Admin Dose 650 MG; Start 09/07/16 at 04:00 Ondansetron HCl (Zofran Inj) 4 mg Q6H PRN IV NAUSEA AND/OR VOMITING; Start 03/16 at 05:00 Heparin Sodium (Porcine) (Heparin (5000 Units/0.5 ml)) 5,000 unit BID SC Last administered on 09/26/16 08:24; Admin Dose 5,000 UNIT; Start 09/07/16 at 09:00 Insulin Glargine (Lantus) 10 unit DAILY@08 SC Last administered on 09/26/16 08 :24; Admin Dose 10 UNIT; Start 09/07/16 at 08:00 Diagnostic Test (Pha) (Accu-Chek) 1 ea 02 XX Last administered on 09/25/16 02: 06; Admin Dose 1 EA; Start 09/08/16 at 02:00 Miscellaneous Information 1 ea NOTE XX ; Start 09/07/16 at 06:45 Glucose (Glutose) 15 gm Q15M PRN PO DECREASED GLUCOSE; Start 09/07/16 at 06:45 Glucose (Glutose) 22.5 gm Q15M PRN PO DECREASED GLUCOSE; Start 09/07/16 at 06: 45 Dextrose (D50w Syringe) 25 ml Q15M PRN IV DECREASED GLUCOSE; Start 09/07/16 at 06:45 Dextrose (D50w Syringe) 50 ml Q15M PRN IV DECREASED GLUCOSE; Start 09/07/16 at 06:45 Glucagon (Glucagen) 1 mg Q15M PRN IM DECREASED GLUCOSE; Start 09/07/16 at 06:45 Glucose (Glutose) 15 gm Q15M PRN BUCCAL DECREASED GLUCOSE; Start 09/07/16 at 06 :45 Carbidopa/Levodopa (Sinemet (25/ 100)) 2 tab TID PO Last administered on 08:14; Admin Dose 2 TAB; Start 09/08/16 at 13:00 Polyethylene Glycol (Miralax) 17 gm BID PO Last administered on 09/26/16 08:14 ; Admin Dose 17 GM; Start 09/11/16 at 21:00 Bisacodyl (Dulcolax) 10 mg DAILY PRN PO CONSTIPATION Last administered on 18:28; Admin Dose 10 MG; Start 09/11/16 at 13:30 Insulin Human NPH (Humulin N) 10 unit BID@08,20 SC Last administered on 20:40; Admin Dose 10 UNIT; Start 09/11/16 at 20:00; Status Future Hold Famotidine (Pepcid) 20 mg BID PO Last administered on 09/26/16 08:15; Admin Dose 20 MG; Start 09/17/16 at 21:00 Prednisolone (Prelone (Ped)) 40 mg DAILY PO Last administered on 09/26/16 08: 15; Admin Dose 40 MG; Start 09/18/16 at 09:00 Ferrous Sulfate (Feosol Liquid Cup) 300 mg BID PO Last administered on 08:14; Admin Dose 300 MG; Start 09/25/16 at 21:00 MAMTA SAEZ NP September 26, 2016 08:54
[2016-09-26] MEDS: predniSONE 20 MG TAB PO SCH (09:00)
[2016-09-26 19:25] VITALS: BP 123/63; RESP 18
--- NOTE | 2016-09-26 22:01 | PN ---
DATE: 09/26/2016 SUBJECTIVE: No acute changes. The patient is lying comfortably in bed. No fevers. WBC 6.6, no shift, no bands. BUN 25, creatinine 0.68. PHYSICAL EXAMINATION: GENERAL: A fragile elderly man who is in no distress. HEENT: Head atraumatic, normocephalic. Sclerae anicteric. Buccal mucosa dry. NECK: Supple. Trachea midline. CHEST: Rise symmetrical. Breath sounds diminished to bases. HEART: S1, S2. ABDOMEN: Soft. Bowel tones present. ASSESSMENT: 1. Status post sepsis with acute encephalopathy. 2. Status post urinary tract infection, chronic obstructive pulmonary disease exacerbation and acut e tracheobronchitis. 3. Parkinson dementia. 4. Diabetes. 5. Coronary artery disease. PLAN: The patient remains stable, completed course of antibiotics, awaiting for placement. Dictated By: SYLVAIN MENA MANAGER OUTREACH for RADHA ZHU/JOSE RAFAEL Conf#: [id number] DID#: [id number]
[2016-09-27] MEDS: LEVALBUTEROL (NEB) 0.63 MG/3 ML AMP HHN SCH ×2 (01:20→08:05)
[2016-09-27] MEDS: ACCU-CHEK XX SCH (01:46)
--- NOTE | 2016-09-27 07:13 | PN ---
Date/Time of Note Date/Time of Note DATE: 09/27/16 TIME: 07:13 Assessment/Plan VTE Prophylaxis VTE Prophylaxis Intervention: heparin Lines/Catheters IV [facility] Type (from [facility]): Saline Lock Urinary Cath still in place: No Assessment/Plan Chief Complaint/Hosp Course 1. Chronic obstructive pulmonary disease exacerbation. Continue inhaled bronchodilators. Continue the patient on tapering dose of steroids. 2. Sepsis with underlying aspiration pneumonia and urinary tract infection. Status post antibiotics. No evidence of any septic shock. 3. Escherichia coli extended-spectrum beta-lactamase urinary tract infection. S/P antibiotics as per infectious diseases. 4. Parkinson's disease. Continue anti-parkinsonian medications. 5. Type 2 diabetes mellitus. Continue insulin regimen. Hemoglobin A1c 6.5. 6. Normocytic normochromic anemia, most probably anemia of chronic disease. Iron panel showing low TIBC and low iron saturation. Continue iron supplements. 7. Deconditioning. Status post evaluation by physical therapy. Physical therapy recommended retirement facility placement. 8. Fluid, electrolytes and nutrition. Carbohydrate controlled diet. 9. Deep venous thrombosis prophylaxis. Subcutaneous heparin. 10. Gastrointestinal prophylaxis. Histamine 2 receptor blockers. PLAN: Continue inhaled bronchodilators. Await placement. Case discussed with Dr. Thomas. Problems: Subjective 24 Hr Interval Summary Free Text/Dictation The patient remains afebrile. Exam/Review of Systems Vital Signs Vitals Vital Signs Date Time Temp Pulse Resp B/P Pulse Ox O2 Delivery O2 Flow Rate FiO2 09/27/16 01:22 89 15 94 21 09/26/16 19:25 97.9 123/63 09/25/16 01:26 1.0 09/24/16 20:00 Nasal Cannula Intake and Output 09/26/16 09/26/16 09/27/16 15:00 23:00 07:00 Intake Total 840 ml Balance 840 ml Exam GENERAL: This is a frail-looking male lying in bed in mild respiratory distress. HEENT: Head normocephalic and atraumatic. Eyes: Anicteric sclerae. Conjunctivae clear. ENT: Nasal septum is midline. Oral mucosa is dry. NECK: Supple. No JVD noticed. RESPIRATORY: Bilaterally diminished breath sounds. Fine rales heard especially on the right side. Use of accessory muscles of respiration. CARDIAC: Regular rate and rhythm. S1 and S2 heard. Grade II/ systolic ejection murmur. ABDOMEN: Soft, nontender and nondistended. Bowel sounds positive in all 4 quadrants. GENITOURINARY: Deferred. EXTREMITIES: No cyanosis, no clubbing. Peripheral pulses are palpable. NEUROLOGIC: The patient has underlying Parkinsonian tremors of bilateral upper extremities. Muscle wasting of all 4 extremities. The patient is awake and alert and oriented to self and place. Results Result Diagram: 09/26/16 0452 09/26/16 0452 Results 24 hrs Laboratory Tests Test 09/26/16 08:09 09/26/16 12:07 09/26/16 17:23 09/26/16 20:47 Bedside Glucose 94 190 125 225 H Test 09/27/16 01:42 Bedside Glucose 120 Medications Medications Current Medications Acetaminophen (Tylenol Tab) 650 mg Q6H PRN PO PAIN AND OR ELEVATED TEMP Last administered on 09/17/16 08:48; Admin Dose 650 MG; Start 09/07/16 at 04:00 Ondansetron HCl (Zofran Inj) 4 mg Q6H PRN IV NAUSEA AND/OR VOMITING; Start 03/16 at 05:00 Heparin Sodium (Porcine) (Heparin (5000 Units/0.5 ml)) 5,000 unit BID SC Last administered on 09/26/16 20:51; Admin Dose 5,000 UNIT; Start 09/07/16 at 09:00 Insulin Glargine (Lantus) 10 unit DAILY@08 SC Last administered on 09/26/16 08 :24; Admin Dose 10 UNIT; Start 09/07/16 at 08:00 Diagnostic Test (Pha) (Accu-Chek) 1 ea 02 XX Last administered on 09/27/16 01: 46; Admin Dose 1 EA; Start 09/08/16 at 02:00 Miscellaneous Information 1 ea NOTE XX ; Start 09/07/16 at 06:45 Glucose (Glutose) 15 gm Q15M PRN PO DECREASED GLUCOSE; Start 09/07/16 at 06:45 Glucose (Glutose) 22.5 gm Q15M PRN PO DECREASED GLUCOSE; Start 09/07/16 at 06: 45 Dextrose (D50w Syringe) 25 ml Q15M PRN IV DECREASED GLUCOSE; Start 09/07/16 at 06:45 Dextrose (D50w Syringe) 50 ml Q15M PRN IV DECREASED GLUCOSE; Start 09/07/16 at 06:45 Glucagon (Glucagen) 1 mg Q15M PRN IM DECREASED GLUCOSE; Start 09/07/16 at 06:45 Glucose (Glutose) 15 gm Q15M PRN BUCCAL DECREASED GLUCOSE; Start 09/07/16 at 06 :45 Carbidopa/Levodopa (Sinemet (25/ 100)) 2 tab TID PO Last administered on 20:48; Admin Dose 2 TAB; Start 09/08/16 at 13:00 Polyethylene Glycol (Miralax) 17 gm BID PO Last administered on 09/26/16 08:14 ; Admin Dose 17 GM; Start 09/11/16 at 21:00 Bisacodyl (Dulcolax) 10 mg DAILY PRN PO CONSTIPATION Last administered on 18:28; Admin Dose 10 MG; Start 09/11/16 at 13:30 Famotidine (Pepcid) 20 mg BID PO Last administered on 09/26/16 20:48; Admin Dose 20 MG; Start 09/17/16 at 21:00 Ferrous Sulfate (Feosol Liquid Cup) 300 mg BID PO Last administered on 20:48; Admin Dose 300 MG; Start 09/25/16 at 21:00 Prednisone (Prednisone) 20 mg DAILY PO ; Start 09/26/16 at 09:00 MAMTA SAEZ NP September 27, 2016 07:13
[2016-09-27 07:47] VITALS: BP 117/62; RESP 16
[2016-09-27] MEDS: INSULIN ASPART [NOVOLOG] 3 ML PEN SC SCH ×4 (07:55→11:46)
[2016-09-27] MEDS: INSULIN GLARGINE [LANtus] 3 ML PEN SC SCH (07:59)
[2016-09-27] MEDS: FAMOTIDINE 20 MG TAB PO SCH (08:57)
[2016-09-27] MEDS: FERROUS SULFATE 60 MG/ML 5ML CUP PO SCH (08:57)
[2016-09-27] MEDS: CARBIDOPA/LEVODOPA (25/100) TAB PO SCH ×2 (08:57→12:21)
[2016-09-27] MEDS: predniSONE 20 MG TAB PO SCH (08:57)
[2016-09-27] MEDS: POLYETHYLENE GLYCOL 17 GM PACKET PO SCH (08:58)
[2016-09-27] MEDS: HEPARIN 5,000 UNIT/0.5 ML VIAL SC SCH (09:15)
--- NOTE | 2016-09-27 13:56 | PDOCDIS ---
Discharge Instructions DIAGNOSIS Discharge Diagnosis: Sepsis with underlying urinary tract infection and aspiration pneumonia. CONDITION Patient Condition: Stable HOME CARE INSTRUCTIONS: Special Diet: 1800 ADA OTHER ORDERS: Other Orders: 1. Resume home medications. 2. Aspiration precautions. 3. Low carbohydrate diet. 4. Follow-up with primary care physician in 1 week. MAMTA SAEZ NP September 27, 2016 13:56
[2016-09-27] MEDS ORDERED: PRED20TA PO (13:59)
--- NOTE | 2016-09-27 15:47 | DS ---
DATE OF ADMISSION: 09/07/2016 DATE OF DISCHARGE: 09/27/2016 FINAL DIAGNOSES: 1. Chronic obstructive pulmonary disease exacerbation. 2. Sepsis secondary to underlying aspiration pneumonia and urinary tract infection. 3. Urinary tract infection with Escherichia coli extended spectrum beta lactamase. 4. Parkinson disease. 5. Type 2 diabetes management. 6. Normocytic normochromic anemia. 7. Iron deficiency. 8. Deconditioning. CONSULTATION: Dr. Diego Hawkins, Infectious Disease. HOSPITAL COURSE: This is an 89-year-old male with past medical history of Parkinson's disease, diabetes, COPD, CAD, and chronic bedridden status who was brought to the emergency room because of cough and fever. The patient was noticed to have a temperature of 101.8 with tachycardia in the emergency room. The patient had no leukocytosis. The patient's lactic acid levels were within normal limits. The patient's chest x-ray showed bilateral upper lobe scarring with right worse than left. Provided the patient's history of present illness, his comorbidities, and the diagnostic findings, a clinical decision was made to admit the patient to inpatient setting to have him further evaluated. The patient was admitted to inpatient telemetry floor. An infectious disease consult was called. The patient was started on empiric antibiotics. The patient's blood cultures remained negative. The patient's sputum culture showed Pseudomonas aeruginosa. The patient's repeat sputum culture showed MRSA and Pseudomonas aeruginosa. The patient was maintained on antibiotics as per infectious diseases. The patient was also noticed to have a urinary tract infection with E. coli ESBL. The patient had no evidence of any septic shock. The patient also has underlying COPD. The patient had COPD exacerbation. The patient was started on tapering dose of steroids with improvement in the patient 's symptoms. The patient was maintained on inhaled bronchodilators. The patient has underlying Parkinson disease. The patient was maintained on anti- parkinsonian medications. The patient has underlying type 2 diabetes mellitus. He was maintained on insulin regimen. The patient was noticed to have a hemoglobin A1c of 6.5 indicating fairly well controlled blood sugars over the past few weeks. The patient has underlying normocytic normochromic anemia. The patient was also noticed to have iron deficiency. The patient was maintained on iron supplements. The patient's H and H remained stable and did not require any blood transfusion. The patient was noticed to be severely deconditioned because of his underlying Parkinson's disease that is advanced. The patient was evaluated by physical therapy, and physical therapy recommended residential facility placement. At one point of time, the case management was looking for residential facility placement; however, because of insurance restrictions, there was unavailability of nursing homes. Finally, the patient's family wanted to take the patient home. Although the patient's family expressed interest in taking the patient home during the beginning of the patient's hospital course, later during the patient's hospital course, they leaned toward taking the patient to a residential facility. However, at the end, the patient's family wanted to take the patient home. The patient's family verbalized that they have all the arrangements at home including a hospital bed and 24-hour caregiver for the patient. The patient has been off antibiotics for the past few days, and the patient has no evidence of any sepsis. Hence, the patient will be discharged home. DISCHARGE DISPOSITION/PLAN: The patient will be discharged home. The patient will resume his home medications. The patient will take a low-carbohydrate diet. The patient will be maintained on aspiration precautions. The patient's family was instructed to follow up with the patient's primary care physician in 1 week. CONDITION AT DISCHARGE: Stable. DISCHARGE MEDICATIONS: 1. Lantus insulin 6 units subcutaneously daily. 2. Metformin 1000 mg p.o. b.i.d. 3. Sinemet 25/100 two tablets p.o. t.i.d. 4. Albuterol 2.5 mg via nebulization q. 4 hours p.r.n. shortness of breath. 5. Prednisone 20 mg p.o. daily x2 days, then prednisone 10 mg p.o. daily x2 days, then prednisone 5 mg p.o. daily x2 days, then prednisone 5 mg p.o. daily x2 days. PERTINENT LABORATORY AND DIAGNOSTIC DATA: 1. Latest chest x-ray on 09/08/2016: Extensive pleural and parenchymal scarring in the right lung may be the result of prior inflammatory process such as TB. Bilateral chronic rotator cuff tears. 2. Sputum culture from 09/07/2016: Positive for Pseudomonas aeruginosa. 3. Sputum culture from 09/11/2016: Positive for Pseudomonas aeruginosa and methicillin-resistant Staphylococcus aureus. 4. Urine culture from 09/07/2016: Positive for E. coli ESBL. 5. Latest CBC: WBC 6.6, hemoglobin 12.2, hematocrit 36.6, platelet count 164. 6. Latest BMP: Sodium 134, potassium 4.1, chloride 99, carbon dioxide 30, anion gap 9, BUN 25, creatinine 0.65, glucose 99, calcium 9.7, phosphorus 4.6, magnesium 2.1. 7. Iron panel: Iron 43, TIBC 229, iron saturation 19, ferritin 296. 8. Fasting lipid panel: Triglycerides 47, total cholesterol 128, LDL 80, HDL 39. 9. Hemoglobin A1c 6.5. At this time, I would like to thank all the consultants for seeing the patient and providing clinical recommendations. The case and management of this patient was fully discussed with Dr. Thomas. Approximately 40 minutes was spent on coordinating the discharge on this patient. MAMTA THOMAS MD, AM/JOSE RAFAEL Conf#: [id number] DID#: [id number]
== END 2016-09-27 17:30 | disposition home health service (06) | DRG 871 ==
LOC: E/R 20:47 → MS4 23:17 → OBSVTOIN 09-07 15:26 → MS2 09-13 15:30
PROVIDERS: ADMIT Internal Medicine; ATTEND Internal Medicine
DX: A41.51 Sepsis due to Escherichia coli [E. coli] (principal); J69.0 Pneumonitis due to inhalation of food and vomit; G93.41 Metabolic encephalopathy; N39.0 Urinary tract infection, site not specified; J44.0 Chronic obstructive pulmonary disease with (acute) lower respiratory infection; B96.20 Unspecified Escherichia coli [E. coli] as the cause of diseases classified elsewhere; E11.9 Type 2 diabetes mellitus without complications; J44.1 Chronic obstructive pulmonary disease with (acute) exacerbation; R65.20 Severe sepsis without septic shock; G20 Parkinson's disease; I25.10 Atherosclerotic heart disease of native coronary artery without angina pectoris; Z95.5 Presence of coronary angioplasty implant and graft; Z99.3 Dependence on wheelchair; Z87.891 Personal history of nicotine dependence; D64.9 Anemia, unspecified; E61.1 Iron deficiency; Z74.01 Bed confinement status; Z90.49 Acquired absence of other specified parts of digestive tract; I70.0 Atherosclerosis of aorta; I77.810 Thoracic aortic ectasia; M75.102 Unspecified rotator cuff tear or rupture of left shoulder, not specified as traumatic; M75.101 Unspecified rotator cuff tear or rupture of right shoulder, not specified as traumatic; M47.894 Other spondylosis, thoracic region; F02.80 Dementia in other diseases classified elsewhere, unspecified severity, without behavioral disturbance, psychotic disturbance, mood disturbance, and anxiety; J20.9 Acute bronchitis, unspecified; R84.5 Abnormal microbiological findings in specimens from respiratory organs and thorax
CPT/HCPCS: 36415; 71010; 80048; 80053; 80061; 80202; 81001; 81003; 82565; 82728; 82962; 83036; 83540; 83605; 83735; 84100; 84439; 84443; 84484; 84520; 85025; 85610; 85730; 87040; 87070; 87086; 93005; 94640; 94664; 96374; 96375; 97110; 97162; 97530; G0378; J0360; J0456; J0696; J1100; J1644; J1815; J1956; J2185; J2920; J3370; J7030; J7050; J7510; J7512